=== PATIENT | female | born 1945 | race Hispanic/Latino ===

== ENCOUNTER 2017-11-10 14:08 | Observation (INO) | payer OTHER, MEDICARE ==
[~2017-11-10] VITALS: Ht 162.6 cm; Wt 70.3 kg
[~2017-11-10 14:08] MED LIST: ALBU18HF7; AMLO5TAB2 PO; AMOXILLIN PO; ASPI-891 PO; CLON0.5T4 PO; ESOM40CA PO; ISOS60TA4 PO; LORA10TA7 PO; LOSA100T29 PO; METO25TA6 PO; ROSU20TA PO; TYL3 PO
[2017-11-10] MEDS ORDERED: NITROGLYCERIN 1GM/1 INCH PACKET TD ONE (14:37)
[2017-11-10] MEDS ORDERED: ONDANSETRON HCL MDV 20ML 2 MG/ML VIAL ONE (14:37)
[2017-11-10] MEDS ORDERED: MORPHINE SULFATE 4 MG/1ML SYG ONE (14:38)
[2017-11-10 14:51] LABS: BASOPHILS % (AUTO) 0.8 % (0.0-5.0); EOSINOPHILS % (AUTO) 2.2 % (0.0-8.0); HEMATOCRIT 41.9 % (36-48); LYMPHOCYTES % (AUTO) 28.3 % (21.0-51.0); MEAN CORPUSCULAR HEMOGLOBIN 30.8 pg (27.0-33.0); MEAN CORPUSCULAR HGB CONC 34.7 g/dL (32.0-36.0); MEAN CORPUSCULAR VOLUME 88.8 fL (79-99); MONOCYTES % (AUTO) 4.5 % (3.0-13.0); NEUTROPHILS % (AUTO) 64.2 % (40.0-77.0); PLATELET COUNT (AUTO) 162 K/uL (130-400); RED BLOOD CELL COUNT(AUTO) 4.72 MIL/uL (4.00-5.50); RED CELL DISTRIBUTION WIDTH 13.6 % (11.0-15.5); WHITE BLOOD COUNT (AUTO) 7.4 K/uL (4.8-10.8)
[2017-11-10 15:02] LABS: CREATININE 1.1 mg/dL (0.5-1.5); POTASSIUM 3.7 mmol/L (3.5-5.1)
[2017-11-10 15:05] LABS: PARTIAL THROMBOPLASTIN TIME 27.8 SEC (26.3-35.5); PROTHROMBIN TIME 10.5 SEC (9.6-11.6)
[2017-11-10 15:08] LABS: ALBUMIN 3.5 g/dL (3.5-5.0); BILIRUBIN,TOTAL 0.6 mg/dL (0.2-1.0); TOTAL PROTEIN, SERUM 6.9 g/dL (6.0-8.3)
[2017-11-10 17:49] VITALS: BP 138/66
[2017-11-10] MEDS ORDERED: DEXTROSE 50%-WATER 50 ML DISP.SYRIN IV PRN (18:30)
[2017-11-10] MEDS ORDERED: GLUCAGON 1MG KIT 1 MG ML IM PRN (18:30)
[2017-11-10 19:05] VITALS: BP 162/72
[2017-11-10] MEDS: NITROGLYCERIN 1GM/1 INCH PACKET TD SCH (19:17)
[2017-11-10] MEDS: INSULIN R PO SS1 SQ SCH (20:32)
[2017-11-10 20:43] LABS: CREATINE KINASE MB < 0.5 ng/mL (0.5-3.6); CREATINE KINASE, TOTAL 31 U/L (21-232); MYOGLOBIN 27 ng/mL (10-92); TROPONIN I < 0.04 ng/mL (0.00-0.06)
[2017-11-10] MEDS ORDERED: METO25TA6 PO (20:44)
[2017-11-10] MEDS ORDERED: LOSA50TA37 PO (20:44)
[2017-11-10] MEDS ORDERED: ACETAMINOPHEN-CODEINE 300/30MG TAB PO PRN (21:15)
[2017-11-10] MEDS ORDERED: ALBUTEROL SULFATE 0.083% 2.5 MG/3 ML INH IH PRN (21:15)
[2017-11-10] MEDS ORDERED: CLONAZEPAM 0.5 MG TABLET PO PRN (21:15)
[2017-11-10] MEDS ORDERED: METOPROLOL TARTRATE 25 MG TAB PO ONE (22:00)
[2017-11-10 23:08] VITALS: BP 133/70
[2017-11-11] MEDS ORDERED: ASPIRIN 325 MG TABLET ONE (01:43)
[2017-11-11 01:48] VITALS: BP 161/73
[2017-11-11] MEDS: NITROGLYCERIN 1GM/1 INCH PACKET TD SCH (02:04)
[2017-11-11 03:05] LABS: CREATINE KINASE MB < 0.5 ng/mL (0.5-3.6); CREATINE KINASE, TOTAL 28 U/L (21-232); MYOGLOBIN 31 ng/mL (10-92); TROPONIN I < 0.04 ng/mL (0.00-0.06)
[2017-11-11 03:25] VITALS: BP 154/73
[2017-11-11] MEDS: INSULIN R PO SS1 SQ SCH ×2 (06:35→11:30)
[2017-11-11 07:45] VITALS: BP 137/65
[2017-11-11] MEDS ORDERED: PANTOPRAZOLE SODIUM 40 MG TABLET.DR PO SCH (09:00)
[2017-11-11] MEDS ORDERED: METOPROLOL TARTRATE 25 MG TAB PO SCH (09:00)
[2017-11-11] MEDS ORDERED: AMLODIPINE BESYLATE 5 MG TAB PO SCH (09:00)
[2017-11-11] MEDS ORDERED: ISOSORBIDE MONO 60 MG TAB.SR PO SCH ×2 (09:00→21:00)
[2017-11-11] MEDS ORDERED: LOSARTAN 100 MG TABLET PO SCH (09:00)
[2017-11-11 11:19] VITALS: BP 142/69
[2017-11-11] MEDS ORDERED: Isosorbide Mono 60 Mg Tab.sr PO (13:18)
[2017-11-11] MEDS ORDERED: ASPIRIN 325 MG TABLET PO SCH (18:30)
[2017-11-11] MEDS ORDERED: ATORVASTATIN CALCIUM 40 MG TABLET PO SCH (21:00)
[2017-11-11] MEDS ORDERED: LOSARTAN 50 MG TABLET PO SCH (21:00)
[2017-12-17] MEDS ORDERED: ROSU10TA35 PO (22:12)
[2018-01-16] MEDS ORDERED: DULA1.5P SQ (09:33)
[2018-01-16] MEDS ORDERED: ROSU10TA PO (09:33)
[2018-01-18] MEDS ORDERED: ROSU20TA38 PO (07:22)
== END 2017-11-11 14:25 | disposition home or self-care (01) ==
LOC: EDH 14:08 → EDHIP 16:53 → 2AH 17:27
PROVIDERS: ADMIT Internal Medicine; ATTEND Internal Medicine
DX: I25.119 Atherosclerotic heart disease of native coronary artery with unspecified angina pectoris (principal); I13.0 Hypertensive heart and chronic kidney disease with heart failure and stage 1 through stage 4 chronic kidney disease, or unspecified chronic kidney disease; E11.22 Type 2 diabetes mellitus with diabetic chronic kidney disease; E11.42 Type 2 diabetes mellitus with diabetic polyneuropathy; E11.51 Type 2 diabetes mellitus with diabetic peripheral angiopathy without gangrene; I50.9 Heart failure, unspecified; N18.2 Chronic kidney disease, stage 2 (mild); E78.5 Hyperlipidemia, unspecified; I48.91 Unspecified atrial fibrillation; M48.061 Spinal stenosis, lumbar region without neurogenic claudication; I65.23 Occlusion and stenosis of bilateral carotid arteries; I70.0 Atherosclerosis of aorta; J44.9 Chronic obstructive pulmonary disease, unspecified; M81.0 Age-related osteoporosis without current pathological fracture; R32 Unspecified urinary incontinence; F11.20 Opioid dependence, uncomplicated; F41.1 Generalized anxiety disorder; F32.9 Major depressive disorder, single episode, unspecified; Z95.1 Presence of aortocoronary bypass graft; Z95.5 Presence of coronary angioplasty implant and graft; Z82.3 Family history of stroke; Z83.3 Family history of diabetes mellitus; Z82.5 Family history of asthma and other chronic lower respiratory diseases; Z82.0 Family history of epilepsy and other diseases of the nervous system; Z82.49 Family history of ischemic heart disease and other diseases of the circulatory system; Z79.4 Long term (current) use of insulin
CPT/HCPCS: 36415 ×2; 71045; 80053; 82550 ×2; 82553 ×2; 82948 ×3; 83874 ×2; 83880; 84484 ×3; 85025; 85610; 85730; 93005 ×2; 94664; 99285; G0378 ×22; J2270

== ENCOUNTER 2017-12-17 16:23 | Observation (INO) | payer OTHER, MEDICARE ==
[~2017-12-17] VITALS: Ht 165.1 cm; Wt 66.2 kg
[~2017-12-17 16:23] MED LIST changes: -AMOXILLIN PO; +CLON0.5T12 PO; -CLON0.5T4 PO; -ISOS60TA4 PO; +Isosorbide Mono 60 Mg Tab.sr PO; -LORA10TA7 PO; +LOSA50TA37 PO
[2017-12-17 16:50] LABS: BASOPHILS % (AUTO) 0.6 % (0.0-5.0); HEMATOCRIT 39.1 % (36-48); LYMPHOCYTES % (AUTO) 29.4 % (21.0-51.0); MEAN CORPUSCULAR HEMOGLOBIN 30.9 pg (27.0-33.0); MEAN CORPUSCULAR HGB CONC 34.8 g/dL (32.0-36.0); MEAN CORPUSCULAR VOLUME 88.7 fL (79-99); MONOCYTES % (AUTO) 5.8 % (3.0-13.0); NEUTROPHILS % (AUTO) 60.2 % (40.0-77.0); PLATELET COUNT (AUTO) 165 K/uL (130-400); RED CELL DISTRIBUTION WIDTH 13.6 % (11.0-15.5); WHITE BLOOD COUNT (AUTO) 7.6 K/uL (4.8-10.8)
[2017-12-17] MEDS ORDERED: NITROGLYCERIN 1GM/1 INCH PACKET TD ONE (16:55)
[2017-12-17] MEDS ORDERED: ASPIRIN 325 MG TABLET PO ONE (16:55)
[2017-12-17 17:00] LABS: INR 0.98 (0.85-1.15); PARTIAL THROMBOPLASTIN TIME 27.1 SEC (26.3-35.5); POTASSIUM 3.7 mmol/L (3.5-5.1); PROTHROMBIN TIME 10.3 SEC (9.6-11.6)
[2017-12-17 17:03] LABS: B-TYPE NATRIURETIC PEPTIDE 111 pg/mL (0-100)
[2017-12-17 17:04] LABS: ALBUMIN 3.4 g/dL (3.5-5.0); BILIRUBIN,TOTAL 0.4 mg/dL (0.2-1.0); TOTAL PROTEIN, SERUM 6.6 g/dL (6.0-8.3)
[2017-12-17] MEDS ORDERED: FENTANYL CITRATE PF 50 MCG/1 ML 2ML VIAL ONE (18:03)
[2017-12-17] MEDS ORDERED: ASPIRIN 325 MG TABLET PO SCH (19:11)
[2017-12-17] MEDS ORDERED: CLONAZEPAM 0.5 MG TABLET PO PRN ×2 (19:15→20:30)
[2017-12-17] MEDS ORDERED: ACETAMINOPHEN-CODEINE 300/30MG TAB PO PRN (20:30)
[2017-12-17] MEDS ORDERED: ALBUTEROL SULFATE 0.083% 2.5 MG/3 ML INH IH PRN (20:30)
[2017-12-17] MEDS ORDERED: INSU100V12 SQ (20:35)
[2017-12-17] MEDS ORDERED: POTASSIUM CHLORIDE 10% ELIXIR 20 MEQ/15 ML UDCUP PO PRN ×2 (20:45)
[2017-12-17] MEDS ORDERED: MAG HYDROX/AL HYDROX/SIMETH ES 30 ML SUSP UDCUP PO PRN (20:45)
[2017-12-17] MEDS ORDERED: LACTULOSE 20 GM/30 ML UDCUP PO PRN (20:45)
[2017-12-17] MEDS ORDERED: GLUCAGON 1MG KIT 1 MG ML IM PRN (20:45)
[2017-12-17] MEDS ORDERED: NITROGLYCERIN 0.4 MG SL TAB SL PRN (20:45)
[2017-12-17] MEDS ORDERED: LIDOCAINE HCL-MPF 1% 2ML VIAL IVP PRN ×2 (20:45)
[2017-12-17] MEDS ORDERED: DEXTROSE 50%-WATER 50 ML DISP.SYRIN IV PRN (20:45)
[2017-12-17] MEDS ORDERED: POTASSIUM CHLORIDE 20 MEQ ERTAB PO PRN ×2 (20:45)
[2017-12-17] MEDS ORDERED: POTASSIUM CHLORIDE 20MEQ/100ML 100 ML IV PRN ×2 (20:45)
[2017-12-17] MEDS ORDERED: ACETAMINOPHEN 325 MG TAB PO PRN ×2 (20:45)
[2017-12-17] MEDS ORDERED: MORPHINE SULFATE 4 MG/1ML SYG IV PRN ×2 (20:45)
[2017-12-17] MEDS: INSULIN HUMULIN R 100 UNIT/ML 3ML SQ SCH (21:00)
[2017-12-17] MEDS: ISOSORBIDE MONO 60 MG TAB.SR PO SCH (21:00)
[2017-12-17] MEDS ORDERED: LOSARTAN 50 MG TABLET PO SCH (21:00)
[2017-12-17 21:10] VITALS: BP 142/66
[2017-12-17] MEDS ORDERED: LOSA100T29 PO (22:12)
[2017-12-17] MEDS ORDERED: ROSU10TA27 PO (22:12)
[2017-12-17] MEDS ORDERED: AMLO2.5T PO (22:12)
[2017-12-17] MEDS ORDERED: METO50TA18 PO (22:14)
[2017-12-17] MEDS ORDERED: FLUT1AER IH (22:18)
[2017-12-17] MEDS ORDERED: NITR4.1S2 SL (22:18)
[2017-12-17] MEDS ORDERED: TRULICITY (22:24)
[2017-12-17 23:05] VITALS: BP_SYST 127; BP_SYST 153; BP_DIAS 68; BP_DIAS 72
[2017-12-17 23:05] LABS: CREATINE KINASE MB 0.6 ng/mL (0.5-3.6); CREATINE KINASE, TOTAL 30 U/L (21-232); MYOGLOBIN 25 ng/mL (10-92); TROPONIN I < 0.04 ng/mL (0.00-0.06)
[2017-12-17] MEDS: ATORVASTATIN CALCIUM 40 MG TABLET PO SCH (23:38)
[2017-12-17] MEDS: METOPROLOL TARTRATE 50 MG TAB PO SCH (23:39)
[2017-12-17] MEDS: NITROGLYCERIN 1GM/1 INCH PACKET TD SCH (23:40)
[2017-12-17] MEDS: SODIUM CHLORIDE 0.9% 1000ML 1,000 ML IV SCH (23:42)
[2017-12-18 03:30] VITALS: BP 169/79
[2017-12-18 05:49] LABS: CREATINE KINASE MB 0.6 ng/mL (0.5-3.6); CREATINE KINASE, TOTAL 30 U/L (21-232); MYOGLOBIN 24 ng/mL (10-92); TROPONIN I < 0.04 ng/mL (0.00-0.06)
[2017-12-18] MEDS ORDERED: PHARMACY COMMUNICATION MISC SCH (06:00)
[2017-12-18] MEDS: INSULIN HUMULIN R 100 UNIT/ML 3ML SQ SCH ×4 (07:30→20:56)
[2017-12-18 08:00] VITALS: BP 141/64
[2017-12-18] MEDS ORDERED: PANTOPRAZOLE SODIUM 40 MG TABLET.DR PO SCH (09:00)
[2017-12-18] MEDS: METOPROLOL TARTRATE 50 MG TAB PO SCH ×2 (09:04→20:53)
[2017-12-18] MEDS: AMLODIPINE BESYLATE 5 MG TAB PO SCH (09:04)
[2017-12-18] MEDS: ASPIRIN 325MG EC TAB 325 MG TABLET.DR PO SCH (09:04)
[2017-12-18] MEDS: PANTOPRAZOLE SODIUM 40 MG TABLET.DR PO SCH (09:04)
[2017-12-18] MEDS: ISOSORBIDE MONO 60 MG TAB.SR PO SCH ×2 (09:05→20:52)
[2017-12-18] MEDS: LOSARTAN 100 MG TABLET PO SCH (09:05)
[2017-12-18] MEDS: NITROGLYCERIN 1GM/1 INCH PACKET TD SCH ×4 (09:06→20:56)
[2017-12-18] MEDS: ENOXAPARIN SODIUM 30 MG/0.3 ML SQ SCH (09:07)
[2017-12-18] MEDS ORDERED: REGADENOSON 0.4 MG/5 ML PF SYG IVP SCH (12:30)
[2017-12-18] MEDS: SODIUM CHLORIDE 0.9% 1000ML 1,000 ML IV SCH (13:20)
[2017-12-18 16:14] VITALS: BP 144/68
[2017-12-18 19:05] VITALS: BP 134/67
[2017-12-18] MEDS: ATORVASTATIN CALCIUM 40 MG TABLET PO SCH (20:53)
[2017-12-19 00:05] VITALS: BP 146/64
[2017-12-19 03:05] VITALS: BP 137/60
[2017-12-19] MEDS: SODIUM CHLORIDE 0.9% 1000ML 1,000 ML IV SCH ×3 (06:37→13:02)
[2017-12-19] MEDS: INSULIN HUMULIN R 100 UNIT/ML 3ML SQ SCH ×2 (06:44→11:30)
[2017-12-19 07:30] VITALS: BP 143/74
[2017-12-19] MEDS: AMLODIPINE BESYLATE 5 MG TAB PO SCH (09:24)
[2017-12-19] MEDS: METOPROLOL TARTRATE 50 MG TAB PO SCH (09:24)
[2017-12-19] MEDS: ASPIRIN 325MG EC TAB 325 MG TABLET.DR PO SCH (09:25)
[2017-12-19] MEDS: PANTOPRAZOLE SODIUM 40 MG TABLET.DR PO SCH (09:25)
[2017-12-19] MEDS: NITROGLYCERIN 1GM/1 INCH PACKET TD SCH ×2 (09:26→13:00)
[2017-12-19] MEDS: LOSARTAN 100 MG TABLET PO SCH (09:26)
[2017-12-19] MEDS: ENOXAPARIN SODIUM 30 MG/0.3 ML SQ SCH (09:26)
[2017-12-19] MEDS: ISOSORBIDE MONO 60 MG TAB.SR PO SCH (09:26)
[2017-12-19 11:00] VITALS: BP 136/63
[2017-12-19] MEDS ORDERED: AMLO5TAB2 PO (11:41)
[2018-01-16] MEDS ORDERED: ROSU10TA PO (09:33)
[2018-01-16] MEDS ORDERED: DULA1.5P SQ (09:33)
== END 2017-12-19 15:35 | disposition home or self-care (01) ==
LOC: EDH 16:23 → EDHIP 18:05 → 4BH 21:21
PROVIDERS: ADMIT Internal Medicine; ATTEND Internal Medicine
DX: Z95.1 Presence of aortocoronary bypass graft (principal); I25.119 Atherosclerotic heart disease of native coronary artery with unspecified angina pectoris; E11.42 Type 2 diabetes mellitus with diabetic polyneuropathy; E11.22 Type 2 diabetes mellitus with diabetic chronic kidney disease; Z79.4 Long term (current) use of insulin; I50.9 Heart failure, unspecified; I13.0 Hypertensive heart and chronic kidney disease with heart failure and stage 1 through stage 4 chronic kidney disease, or unspecified chronic kidney disease; N18.2 Chronic kidney disease, stage 2 (mild); E11.51 Type 2 diabetes mellitus with diabetic peripheral angiopathy without gangrene; F32.9 Major depressive disorder, single episode, unspecified; M19.90 Unspecified osteoarthritis, unspecified site; F41.1 Generalized anxiety disorder; M48.061 Spinal stenosis, lumbar region without neurogenic claudication; E78.5 Hyperlipidemia, unspecified; M81.0 Age-related osteoporosis without current pathological fracture; J44.9 Chronic obstructive pulmonary disease, unspecified; I65.23 Occlusion and stenosis of bilateral carotid arteries; I70.0 Atherosclerosis of aorta; R32 Unspecified urinary incontinence; I48.91 Unspecified atrial fibrillation; F11.20 Opioid dependence, uncomplicated; Z95.5 Presence of coronary angioplasty implant and graft; Z82.0 Family history of epilepsy and other diseases of the nervous system; Z82.3 Family history of stroke; Z82.49 Family history of ischemic heart disease and other diseases of the circulatory system; Z82.5 Family history of asthma and other chronic lower respiratory diseases; Z83.3 Family history of diabetes mellitus; Z90.710 Acquired absence of both cervix and uterus; Z79.82 Long term (current) use of aspirin
CPT/HCPCS: 36415 ×2; 71045; 78452; 80053; 82550 ×3; 82553 ×2; 82948 ×7; 83874 ×2; 83880; 84484 ×3; 85025; 85610; 85730; 93005; 93017; 94664; 96372 ×2; 96374; 99291; A9500 ×2; G0378 ×45; J1650 ×2; J2785; J3010; J7030

== ENCOUNTER 2018-01-18 05:45 | Day surgery (SDC) | payer OTHER, MEDICARE ==
[2018-01-16 08:45] VITALS: BP 124/60
[2018-01-16 09:13] LABS: BASOPHILS % (AUTO) 1.2 % (0.0-5.0); EOSINOPHILS % (AUTO) 3.2 % (0.0-8.0); HEMATOCRIT 40.7 % (36-48); LYMPHOCYTES % (AUTO) 25.1 % (21.0-51.0); MEAN CORPUSCULAR HEMOGLOBIN 30.4 pg (27.0-33.0); MEAN CORPUSCULAR HGB CONC 34.5 g/dL (32.0-36.0); MEAN CORPUSCULAR VOLUME 88.2 fL (79-99); MONOCYTES % (AUTO) 5.2 % (3.0-13.0); NEUTROPHILS % (AUTO) 65.3 % (40.0-77.0); PLATELET COUNT (AUTO) 167 K/uL (130-400); RED BLOOD CELL COUNT(AUTO) 4.62 MIL/uL (4.00-5.50); RED CELL DISTRIBUTION WIDTH 13.4 % (11.0-15.5); WHITE BLOOD COUNT (AUTO) 7.2 K/uL (4.8-10.8)
[2018-01-16 09:21] LABS: CREATININE 0.9 mg/dL (0.5-1.5); POTASSIUM 4.4 mmol/L (3.5-5.1)
[2018-01-16 09:22] LABS: APPEARANCE,URINE Clear (CLEAR); BILIRUBIN,URINE Negative (NEGATIVE); COLOR,URINE Yellow (YELLOW); GLUCOSE, URINE (UA) Negative (NEGATIVE); KETONES,URINE Negative (NEGATIVE); LEUKOCYTE ESTERASE ,URINE Small (NEGATIVE); NITRATE,URINE Negative (NEGATIVE); OCCULT BLOOD,URINE Negative (NEGATIVE); PH,URINE 6.5 (5.0-8.0); PROTEIN,URINE Negative (NEGATIVE)
[2018-01-16 09:26] LABS: INR 1.04 (0.85-1.15); PARTIAL THROMBOPLASTIN TIME 28.5 SEC (26.3-35.5); PROTHROMBIN TIME 10.9 SEC (9.6-11.6)
[2018-01-16 09:28] LABS: BACTERIA,URINE Rare /HPF (None Seen); RBC,URINE 0-1 /HPF (0-1); SQUAMOUS EPITHELIAL CELL,UR Rare /HPF (0-2); WBC,URINE 0-1 /HPF (0-1)
[~2018-01-18] VITALS: Ht 162.6 cm; Wt 70.6 kg
[2018-01-18] VITALS (10 sets, daily range): BP systolic 122–162; BP diastolic 54–82
[~2018-01-18 05:45] MED LIST changes: -ALBU18HF7; -AMLO5TAB2 PO; -ASPI-891 PO; +DULA1.5P SQ; +INSU100V12 SQ; -METO25TA6 PO; +METO50TA18 PO; +NITR4.1S2 SL; +PHARMACY COMMUNICATION MISC SCH; +ROSU10TA PO; -ROSU20TA PO; +SODIUM CHLORIDE 0.9% 500ML 500 ML IV SCH
[2018-01-18] MEDS ORDERED: IOPAMIDOL-370 100 ML VIAL IV ONE ×2 (07:09→08:34)
[2018-01-18] MEDS ORDERED: NITROGLYCERIN 5 MG/ML 10 ML VIAL IV ONE (07:09)
[2018-01-18] MEDS ORDERED: ISOVUE-370 50ML VIAL IV ONE (07:09)
[2018-01-18] MEDS ORDERED: LIDOCAINE HCL 2% 20ML ONE (07:10)
[2018-01-18] MEDS ORDERED: SODIUM CHLORIDE 0.9% 1000ML 1,000 ML IV ONE (07:17)
[2018-01-18] MEDS ORDERED: ROSU20TA30 PO (07:22)
[2018-01-18] MEDS ORDERED: DEXL60CA3 PO (07:24)
[2018-01-18] MEDS ORDERED: AMLO5TAB2 PO (07:24)
[2018-01-18] MEDS ORDERED: ASPI-891 PO (07:24)
[2018-01-18] MEDS ORDERED: MIDAZOLAM HCL 1 MG/ML 2ML VIAL ONE (07:44)
[2018-01-18] MEDS ORDERED: LABETALOL HCL 5 MG/ML 20ML VIAL IV ONE (08:24)
[2018-01-18] MEDS ORDERED: SODIUM CHLORIDE 0.9% 1000ML 1,000 ML IV SCH (08:57)
[2018-01-18] MEDS ORDERED: GLUCAGON 1MG KIT 1 MG ML IM PRN (09:00)
[2018-01-18] MEDS ORDERED: DEXTROSE 50%-WATER 50 ML DISP.SYRIN IV PRN (09:00)
[2018-01-18] MEDS ORDERED: ESOM40CA PO (09:07)
[2018-01-18] MEDS ORDERED: INSULIN HUMULIN R 100 UNIT/ML 3ML SQ SCH (11:30)
== END 2018-01-18 13:10 | disposition home or self-care (01) ==
LOC: DAH 05:45
PROVIDERS: ATTEND Internal Medicine Cardiovascular Disease
DX: I25.810 Atherosclerosis of coronary artery bypass graft(s) without angina pectoris (principal); R07.9 Chest pain, unspecified; I48.91 Unspecified atrial fibrillation; Z98.890 Other specified postprocedural states; E11.9 Type 2 diabetes mellitus without complications; E78.5 Hyperlipidemia, unspecified; I10 Essential (primary) hypertension; Z90.710 Acquired absence of both cervix and uterus; Z83.3 Family history of diabetes mellitus; Z82.49 Family history of ischemic heart disease and other diseases of the circulatory system; Z79.899 Other long term (current) drug therapy; I65.23 Occlusion and stenosis of bilateral carotid arteries; Z79.4 Long term (current) use of insulin; Z79.84 Long term (current) use of oral hypoglycemic drugs
CPT/HCPCS: 36415; 71045; 80048; 81001; 82948 ×3; 85025; 85610; 85730; 93459; A4606; C1760; C1894; J1644; J2250; J3490 ×3; J7030; Q9967 ×2; 99156; 99157

== ENCOUNTER → 2018-04-22 | Outpatient (CLI) | payer OTHER, MEDICARE ==
[~2018-04-22] MED LIST changes: +AMLO5TAB7 PO; +ASPI-891 PO; +LOSA100T20 PO; -LOSA100T29 PO; +LOSA50TA25 PO; -LOSA50TA37 PO; -PHARMACY COMMUNICATION MISC SCH; -ROSU10TA PO; +ROSU20TA30 PO; -SODIUM CHLORIDE 0.9% 500ML 500 ML IV SCH
== END | disposition home or self-care (01) ==
LOC: RAH 11:04
PROVIDERS: ATTEND Internal Medicine
DX: M25.812 Other specified joint disorders, left shoulder (principal); I13.0 Hypertensive heart and chronic kidney disease with heart failure and stage 1 through stage 4 chronic kidney disease, or unspecified chronic kidney disease; E11.22 Type 2 diabetes mellitus with diabetic chronic kidney disease; N18.2 Chronic kidney disease, stage 2 (mild); I50.9 Heart failure, unspecified; E11.42 Type 2 diabetes mellitus with diabetic polyneuropathy; E78.5 Hyperlipidemia, unspecified; M19.049 Primary osteoarthritis, unspecified hand; M19.019 Primary osteoarthritis, unspecified shoulder; J44.9 Chronic obstructive pulmonary disease, unspecified; I25.10 Atherosclerotic heart disease of native coronary artery without angina pectoris; K21.9 Gastro-esophageal reflux disease without esophagitis; Z90.49 Acquired absence of other specified parts of digestive tract; Z90.710 Acquired absence of both cervix and uterus
CPT/HCPCS: 76882

== ENCOUNTER 2018-04-26 21:33 | Emergency (ER) | payer OTHER, MEDICARE ==
[2018-04-26 21:48] LABS: BASOPHILS % (AUTO) 0.8 % (0.0-5.0); EOSINOPHILS % (AUTO) 2.5 % (0.0-8.0); HEMATOCRIT 42.7 % (36-48); LYMPHOCYTES % (AUTO) 26.7 % (21.0-51.0); MEAN CORPUSCULAR HEMOGLOBIN 29.9 pg (27.0-33.0); MEAN CORPUSCULAR HGB CONC 33.6 g/dL (32.0-36.0); MEAN CORPUSCULAR VOLUME 88.9 fL (79-99); MONOCYTES % (AUTO) 4.6 % (3.0-13.0); NEUTROPHILS % (AUTO) 65.4 % (40.0-77.0); PLATELET COUNT (AUTO) 145 K/uL (130-400); RED BLOOD CELL COUNT(AUTO) 4.81 MIL/uL (4.00-5.50); RED CELL DISTRIBUTION WIDTH 13.9 % (11.0-15.5); WHITE BLOOD COUNT (AUTO) 9.6 K/uL (4.8-10.8)
[2018-04-26] MEDS ORDERED: ASPIRIN 81MG TAB.CHEW ONE (21:52)
[2018-04-26 22:00] LABS: POTASSIUM 4.3 mmol/L (3.5-5.1)
[2018-04-26] MEDS ORDERED: NITROGLYCERIN 0.4 MG SL TAB SL ONE ×3 (22:00→22:10)
[2018-04-26 22:02] LABS: PARTIAL THROMBOPLASTIN TIME 29.7 SEC (26.3-35.5); PROTHROMBIN TIME 10.5 SEC (9.6-11.6)
[2018-04-26 22:15] LABS: ALBUMIN 3.5 g/dL (3.5-5.0); BILIRUBIN,TOTAL 0.4 mg/dL (0.2-1.0); CREATINE KINASE MB 0.6 ng/mL (0.5-3.6); TOTAL PROTEIN, SERUM 6.8 g/dL (6.0-8.3)
[2018-04-26] MEDS ORDERED: ONDANSETRON HCL 4 MG/2 ML VIAL ONE (22:18)
[2018-04-26] MEDS ORDERED: PANTOPRAZOLE 40 MG/VIAL IVP ONE (22:35)
[2018-04-27 01:01] LABS: CREATINE KINASE MB 0.6 ng/mL (0.5-3.6); CREATINE KINASE, TOTAL 34 U/L (21-232); MYOGLOBIN 23 ng/mL (10-92); TROPONIN I < 0.04 ng/mL (0.00-0.06)
== END 2018-04-27 01:55 | disposition home or self-care (01) ==
LOC: EDH 21:33
DX: R07.89 Other chest pain (principal); R10.9 Unspecified abdominal pain; R06.02 Shortness of breath; R11.0 Nausea; E78.5 Hyperlipidemia, unspecified; I10 Essential (primary) hypertension; E11.9 Type 2 diabetes mellitus without complications; I25.810 Atherosclerosis of coronary artery bypass graft(s) without angina pectoris; Z98.890 Other specified postprocedural states; Z90.49 Acquired absence of other specified parts of digestive tract; Z95.1 Presence of aortocoronary bypass graft
CPT/HCPCS: 36415; 71045; 80053; 82550 ×2; 82553 ×2; 83690; 83874 ×2; 84484 ×3; 85025; 85610; 85730; 93005 ×2; 94761; 96374; 96375; 99285; C9113; J2405

== ENCOUNTER 2018-05-24 17:21 | Observation (INO) | payer OTHER, MEDICARE ==
[~2018-05-24] VITALS: Ht 162.6 cm; Wt 73.0 kg
[2018-05-24 17:48] LABS: BASOPHILS % (AUTO) 0.6 % (0.0-5.0); EOSINOPHILS % (AUTO) 1.9 % (0.0-8.0); HEMATOCRIT 39.1 % (36-48); LYMPHOCYTES % (AUTO) 15.9 % (21.0-51.0); MEAN CORPUSCULAR HEMOGLOBIN 30.4 pg (27.0-33.0); MEAN CORPUSCULAR HGB CONC 34.4 g/dL (32.0-36.0); MEAN CORPUSCULAR VOLUME 88.5 fL (79-99); MONOCYTES % (AUTO) 5.1 % (3.0-13.0); NEUTROPHILS % (AUTO) 76.5 % (40.0-77.0); PLATELET COUNT (AUTO) 137 K/uL (130-400); RED BLOOD CELL COUNT(AUTO) 4.42 MIL/uL (4.00-5.50); RED CELL DISTRIBUTION WIDTH 13.7 % (11.0-15.5); WHITE BLOOD COUNT (AUTO) 9.9 K/uL (4.8-10.8)
[2018-05-24 18:02] LABS: CREATININE 0.9 mg/dL (0.5-1.5); POTASSIUM 3.5 mmol/L (3.5-5.1)
[2018-05-24 18:03] LABS: PARTIAL THROMBOPLASTIN TIME 28.9 SEC (26.3-35.5); PROTHROMBIN TIME 10.5 SEC (9.6-11.6)
[2018-05-24 18:07] LABS: ALBUMIN 3.3 g/dL (3.5-5.0); BILIRUBIN,TOTAL 0.5 mg/dL (0.2-1.0); TOTAL PROTEIN, SERUM 6.3 g/dL (6.0-8.3)
[2018-05-24] MEDS ORDERED: MORPHINE SULFATE 4 MG/1ML SYG ONE (18:36)
[2018-05-24] MEDS ORDERED: ONDANSETRON HCL 4 MG/2 ML VIAL ONE (18:36)
[2018-05-24] MEDS ORDERED: ASPIRIN 325 MG TABLET ONE (19:22)
[2018-05-24] MEDS ORDERED: LIDOCAINE HCL 2% VISCOUS 15 ML UDCUP ONE (19:22)
[2018-05-24] MEDS ORDERED: MAG HYDROX/AL HYDROX/SIMETH ES 30 ML SUSP UDCUP ONE (19:22)
[2018-05-24 21:26] LABS: APPEARANCE,URINE Clear (CLEAR); BILIRUBIN,URINE Negative (NEGATIVE); COLOR,URINE Yellow (YELLOW); GLUCOSE, URINE (UA) Negative (NEGATIVE); KETONES,URINE Negative (NEGATIVE); LEUKOCYTE ESTERASE ,URINE Small (NEGATIVE); NITRATE,URINE Negative (NEGATIVE); OCCULT BLOOD,URINE Negative (NEGATIVE); PH,URINE 6.5 (5.0-8.0); PROTEIN,URINE Negative (NEGATIVE)
[2018-05-24 21:36] LABS: BACTERIA,URINE Rare /HPF (None Seen); RBC,URINE 0-1 /HPF (0-1)
[2018-05-24] MEDS ORDERED: SODIUM CHLORIDE 0.9% 1000ML 1,000 ML IV SCH (22:57)
[2018-05-24] MEDS ORDERED: DiphenhydrAMINE HCL 50 MG/ML VIAL IV PRN (23:00)
[2018-05-24] MEDS ORDERED: ACETAMINOPHEN 325 MG TAB PO PRN ×2 (23:00)
[2018-05-24] MEDS ORDERED: GLUCAGON 1MG KIT 1 MG ML IM PRN (23:00)
[2018-05-24] MEDS ORDERED: ALBUTEROL SULFATE 0.083% 2.5 MG/3 ML INH IH PRN (23:00)
[2018-05-24] MEDS ORDERED: MAG HYDROX/AL HYDROX/SIMETH ES 30 ML SUSP UDCUP PO PRN (23:00)
[2018-05-24] MEDS ORDERED: DEXTROSE 50%-WATER 50 ML DISP.SYRIN IV PRN (23:00)
[2018-05-24] MEDS ORDERED: POTASSIUM CHLORIDE 10% ELIXIR 20 MEQ/15 ML UDCUP PO PRN (23:00)
[2018-05-24] MEDS ORDERED: LACTULOSE 20 GM/30 ML UDCUP PO PRN (23:00)
[2018-05-24] MEDS ORDERED: POTASSIUM CHLORIDE 20MEQ/100ML 100 ML IV PRN (23:00)
[2018-05-24] MEDS ORDERED: ONDANSETRON HCL 4 MG/2 ML VIAL IV PRN (23:00)
[2018-05-24] MEDS ORDERED: NITROGLYCERIN 0.4 MG SL TAB SL SCH (23:00)
[2018-05-24] MEDS ORDERED: LIDOCAINE HCL-MPF 1% 2ML VIAL IVP PRN (23:00)
[2018-05-24] MEDS ORDERED: DIPHENHYDRAMINE HCL 25 MG CAPSULE PO PRN (23:00)
[2018-05-24] MEDS ORDERED: POTASSIUM CHLORIDE 20 MEQ ERTAB PO PRN (23:00)
[2018-05-24 23:18] VITALS: BP 138/55
[2018-05-25] MEDS: NITROGLYCERIN 1GM/1 INCH PACKET TD SCH ×3 (01:24→10:05)
[2018-05-25 01:26] LABS: CREATINE KINASE, TOTAL 26 U/L (21-232); MYOGLOBIN 28 ng/mL (10-92); TROPONIN I < 0.04 ng/mL (0.00-0.06)
[2018-05-25 04:00] VITALS: BP 125/57
[2018-05-25 05:32] LABS: CREATINE KINASE, TOTAL 28 U/L (21-232); MYOGLOBIN 28 ng/mL (10-92); TROPONIN I < 0.04 ng/mL (0.00-0.06)
[2018-05-25] MEDS ORDERED: INSULIN GLARGINE 100 UNITS/ML 10 ML VIAL SQ SCH (08:00)
[2018-05-25 08:14] VITALS: BP 141/65
[2018-05-25] MEDS ORDERED: PANTOPRAZOLE SODIUM 40 MG TABLET.DR PO SCH (09:00)
[2018-05-25] MEDS ORDERED: ENOXAPARIN SODIUM 30 MG/0.3 ML SQ SCH (09:00)
[2018-05-25] MEDS ORDERED: ISOSORBIDE MONO 60 MG TAB.SR PO SCH (09:00)
[2018-05-25] MEDS ORDERED: METOPROLOL TARTRATE 50 MG TAB PO SCH (09:00)
[2018-05-25] MEDS ORDERED: AMLODIPINE BESYLATE 5 MG TAB PO SCH (09:00)
[2018-05-25] MEDS ORDERED: ASPIRIN 325MG EC TAB 325 MG TABLET.DR PO SCH (09:00)
[2018-05-25] MEDS ORDERED: LOSARTAN 100 MG TABLET PO SCH (09:00)
[2018-05-25] MEDS ORDERED: GICOCKTAIL PO (10:21)
[2018-05-25 11:53] VITALS: BP 122/58
[2018-05-25] MEDS ORDERED: CLONAZEPAM 0.5 MG TABLET PO SCH (21:00)
[2018-05-25] MEDS ORDERED: LOSARTAN 50 MG TABLET PO SCH (21:00)
[2018-05-25] MEDS ORDERED: ATORVASTATIN CALCIUM 40 MG TABLET PO SCH (21:00)
[2018-05-31] MEDS ORDERED: DULAGLUTIDE 1.5 MG SQ SCH (09:00)
== END 2018-05-25 11:25 | disposition home or self-care (01) ==
LOC: EDH 17:21 → EDHIP 19:11 → 3AH 22:36
PROVIDERS: ADMIT Internal Medicine; ATTEND Internal Medicine
DX: R07.89 Other chest pain (principal); E11.22 Type 2 diabetes mellitus with diabetic chronic kidney disease; E11.36 Type 2 diabetes mellitus with diabetic cataract; E11.49 Type 2 diabetes mellitus with other diabetic neurological complication; E11.51 Type 2 diabetes mellitus with diabetic peripheral angiopathy without gangrene; I13.0 Hypertensive heart and chronic kidney disease with heart failure and stage 1 through stage 4 chronic kidney disease, or unspecified chronic kidney disease; I50.9 Heart failure, unspecified; I25.118 Atherosclerotic heart disease of native coronary artery with other forms of angina pectoris; E55.9 Vitamin D deficiency, unspecified; N18.2 Chronic kidney disease, stage 2 (mild); M81.0 Age-related osteoporosis without current pathological fracture; E66.9 Obesity, unspecified; E78.1 Pure hyperglyceridemia; E11.65 Type 2 diabetes mellitus with hyperglycemia; G43.109 Migraine with aura, not intractable, without status migrainosus; J44.9 Chronic obstructive pulmonary disease, unspecified; K21.9 Gastro-esophageal reflux disease without esophagitis; M48.061 Spinal stenosis, lumbar region without neurogenic claudication; M51.9 Unspecified thoracic, thoracolumbar and lumbosacral intervertebral disc disorder; G89.29 Other chronic pain; I48.91 Unspecified atrial fibrillation; I70.0 Atherosclerosis of aorta; F41.1 Generalized anxiety disorder; F32.9 Major depressive disorder, single episode, unspecified; I65.22 Occlusion and stenosis of left carotid artery; Z82.49 Family history of ischemic heart disease and other diseases of the circulatory system; Z82.0 Family history of epilepsy and other diseases of the nervous system; Z83.3 Family history of diabetes mellitus; Z87.891 Personal history of nicotine dependence; Z90.49 Acquired absence of other specified parts of digestive tract; Z95.1 Presence of aortocoronary bypass graft; Z95.5 Presence of coronary angioplasty implant and graft; Z79.4 Long term (current) use of insulin; Z82.5 Family history of asthma and other chronic lower respiratory diseases; Z82.3 Family history of stroke; Z23 Encounter for immunization
CPT/HCPCS: 36415 ×2; 71045; 80053; 81001; 82550 ×3; 82948 ×2; 83690; 83874 ×2; 84484 ×3; 85025; 85610; 85730; 93005; 94664; 96360; 96361; 96372; 99285; G0008; G0378 ×16; J1650; J2270; J2405; J7030; Q2038

== ENCOUNTER 2018-08-19 13:57 | Emergency (ER) | payer OTHER, MEDICARE ==
[~2018-08-19 13:57] MED LIST changes: -AMLO5TAB7 PO; +AMLO5TAB9 PO; +GICOCKTAIL PO; -LOSA100T20 PO; +LOSA100T58 PO; -LOSA50TA25 PO; +LOSA50TA64 PO
[2018-08-19 15:19] LABS: BASOPHILS % (AUTO) 0.7 % (0.0-5.0); EOSINOPHILS % (AUTO) 2.7 % (0.0-8.0); HEMATOCRIT 40.7 % (36-48); LYMPHOCYTES % (AUTO) 24.5 % (21.0-51.0); MEAN CORPUSCULAR HGB CONC 33.5 g/dL (32.0-36.0); MEAN CORPUSCULAR VOLUME 89.6 fL (79-99); MONOCYTES % (AUTO) 5.1 % (3.0-13.0); NUCLEATED RED BLOOD CELLS 0.1 % (0.0-0.19); PLATELET COUNT (AUTO) 128 K/uL (130-400); RED BLOOD CELL COUNT(AUTO) 4.55 MIL/uL (4.00-5.50); RED CELL DISTRIBUTION WIDTH 13.6 % (11.0-15.5)
[2018-08-19 15:27] LABS: CREATININE 1.1 mg/dL (0.5-1.5); POTASSIUM 3.8 mmol/L (3.5-5.1)
[2018-08-19 15:31] LABS: ALBUMIN 3.2 g/dL (3.5-5.0); BILIRUBIN,TOTAL 0.4 mg/dL (0.2-1.0); TOTAL PROTEIN, SERUM 6.3 g/dL (6.0-8.3)
== END 2018-08-19 16:30 | disposition home or self-care (01) ==
LOC: EDH 13:57
DX: R07.89 Other chest pain (principal); R42 Dizziness and giddiness; R00.2 Palpitations; E11.9 Type 2 diabetes mellitus without complications; I25.10 Atherosclerotic heart disease of native coronary artery without angina pectoris; E78.5 Hyperlipidemia, unspecified; I10 Essential (primary) hypertension; Z90.49 Acquired absence of other specified parts of digestive tract
CPT/HCPCS: 36415; 71045; 80053; 84484; 85025; 93005

== ENCOUNTER → 2018-09-04 | Outpatient (CLI) | payer OTHER, MEDICARE | END | disposition home or self-care (01) | LOC: RAH 15:36 | PROVIDERS: ATTEND Internal Medicine | DX: M47.24 Other spondylosis with radiculopathy, thoracic region (principal) | CPT/HCPCS: 72072 ==

== ENCOUNTER 2018-10-03 13:23 | Emergency (ER) | payer OTHER, MEDICARE ==
[2018-10-03] MEDS ORDERED: SODIUM CHLORIDE 0.9% 1000ML 1,000 ML IV ONE (14:45)
[2018-10-03] MEDS ORDERED: ONDANSETRON HCL 4 MG/2 ML VIAL ONE (14:45)
[2018-10-03 14:47] LABS: BASOPHILS % (AUTO) 0.5 % (0.0-5.0); EOSINOPHILS % (AUTO) 0.2 % (0.0-8.0); MEAN CORPUSCULAR HEMOGLOBIN 30.3 pg (27.0-33.0); MEAN CORPUSCULAR HGB CONC 33.7 g/dL (32.0-36.0); MEAN CORPUSCULAR VOLUME 89.7 fL (79-99); NEUTROPHILS % (AUTO) 81.3 % (40.0-77.0); PLATELET COUNT (AUTO) 119 K/uL (130-400); RED BLOOD CELL COUNT(AUTO) 4.46 MIL/uL (4.00-5.50); RED CELL DISTRIBUTION WIDTH 13.3 % (11.0-15.5); WHITE BLOOD COUNT (AUTO) 6.2 K/uL (4.8-10.8)
[2018-10-03 14:57] LABS: INR 1.06 (0.85-1.15); PARTIAL THROMBOPLASTIN TIME 33.1 SEC (26.3-35.5); PROTHROMBIN TIME 11.1 SEC (9.6-11.6)
[2018-10-03 15:10] LABS: ALBUMIN 3.1 g/dL (3.5-5.0); CARBON DIOXIDE 21 mmol/L (21-32); CHLORIDE 99 mmol/L (101-111); CREATININE 0.8 mg/dL (0.5-1.5); GLOMERULAR FILTR. RATE CALC 75 mL/min (>60); GLUCOSE,RANDOM 149 mg/dL (70-105); POTASSIUM 4.3 mmol/L (3.5-5.1); SODIUM SERUM 134 mmol/L (136-145); UREA NITROGEN, BLOOD 14 mg/dL (7-18)
[2018-10-03] MEDS ORDERED: IPRATROPIUM/ALBUTEROL SULFATE 3 ML SOLUTION IH ONE (15:10)
[2018-10-03 15:35] LABS: ALANINE AMINOTRANSFERASE 31 U/L (12-78); ASPARTATE AMINOTRANSFERASE 42 U/L (10-37); BILIRUBIN,TOTAL 0.8 mg/dL (0.2-1.0); CREATINE KINASE, TOTAL 97 U/L (21-232); MYOGLOBIN 55 ng/mL (10-92); TOTAL PROTEIN, SERUM 6.5 g/dL (6.0-8.3); TROPONIN I < 0.04 ng/mL (0.00-0.06)
[2018-10-03 15:44] LABS: BILIRUBIN,URINE Negative (NEGATIVE); COLOR,URINE Yellow (YELLOW); GLUCOSE, URINE (UA) Negative (NEGATIVE); KETONES,URINE 40 mg/dL (NEGATIVE); LEUKOCYTE ESTERASE ,URINE Negative (NEGATIVE); NITRATE,URINE Negative (NEGATIVE); OCCULT BLOOD,URINE Negative (NEGATIVE); PROTEIN,URINE Negative (NEGATIVE)
[2018-10-03 15:48] LABS: APPEARANCE,URINE CLEAR (CLEAR)
[2018-10-03 15:56] LABS: B-TYPE NATRIURETIC PEPTIDE 150 pg/mL (0-100)
== END 2018-10-03 16:31 | disposition home or self-care (01) ==
LOC: EDH 13:23
DX: J10.1 Influenza due to other identified influenza virus with other respiratory manifestations (principal); E86.0 Dehydration; I10 Essential (primary) hypertension; E78.5 Hyperlipidemia, unspecified; E11.9 Type 2 diabetes mellitus without complications; I25.10 Atherosclerotic heart disease of native coronary artery without angina pectoris; I95.1 Orthostatic hypotension; Z87.891 Personal history of nicotine dependence
CPT/HCPCS: 36415; 71045; 80053; 81003; 82550; 83605; 83874; 83880; 84484; 85025; 85610; 85730; 87040; 87088; 87804 ×2; 93005; 94640; 96361; 96374; 96375; 99284; J2405; J7030

== ENCOUNTER 2019-01-24 23:35 | Emergency (ER) | payer OTHER, MEDICARE ==
[2019-01-25 00:01] LABS: EOSINOPHILS % (AUTO) 2.8 % (0.0-8.0); HEMATOCRIT 41.1 % (36-48); LYMPHOCYTES % (AUTO) 27.1 % (21.0-51.0); MEAN CORPUSCULAR HEMOGLOBIN 30.3 pg (27.0-33.0); MEAN CORPUSCULAR HGB CONC 33.9 g/dL (32.0-36.0); MEAN CORPUSCULAR VOLUME 89.3 fL (79-99); MONOCYTES % (AUTO) 5.4 % (3.0-13.0); NEUTROPHILS % (AUTO) 63.7 % (40.0-77.0); PLATELET COUNT (AUTO) 139 K/uL (130-400); RED CELL DISTRIBUTION WIDTH 13.3 % (11.0-15.5); WHITE BLOOD COUNT (AUTO) 8.6 K/uL (4.8-10.8)
[2019-01-25 00:13] LABS: CREATININE 0.8 mg/dL (0.5-1.5); POTASSIUM 4.8 mmol/L (3.5-5.1)
[2019-01-25 00:24] LABS: ALBUMIN 3.5 g/dL (3.5-5.0); BILIRUBIN,TOTAL 0.5 mg/dL (0.2-1.0); TOTAL PROTEIN, SERUM 6.5 g/dL (6.0-8.3)
[2019-01-25 00:26] LABS: PROTHROMBIN TIME 10.5 SEC (9.6-11.6)
[2019-01-25 01:31] LABS: APPEARANCE,URINE Clear (CLEAR); BILIRUBIN,URINE Negative (NEGATIVE); COLOR,URINE Yellow (YELLOW); GLUCOSE, URINE (UA) Negative (NEGATIVE); KETONES,URINE Negative (NEGATIVE); LEUKOCYTE ESTERASE ,URINE Trace (NEGATIVE); NITRATE,URINE Negative (NEGATIVE); OCCULT BLOOD,URINE Negative (NEGATIVE); PH,URINE 6.5 (5.0-8.0); PROTEIN,URINE Negative (NEGATIVE); UROBILINOGEN,URINE 0.2 mg/dL (0.2-1.0)
[2019-01-25 01:45] LABS: BACTERIA,URINE None Seen /HPF (None Seen); RBC,URINE None Seen /HPF (0-1); WBC,URINE None Seen /HPF (0-1)
[2019-01-25 01:46] LABS: SQUAMOUS EPITHELIAL CELL,UR Rare /HPF (0-2)
[2019-01-25] MEDS ORDERED: NITROGLYCERIN 1GM/1 INCH PACKET TD ONE (01:53)
[2019-01-25] MEDS ORDERED: MAG HYDROX/AL HYDROX/SIMETH ES 30 ML SUSP UDCUP ONE (01:59)
[2019-01-25] MEDS ORDERED: LIDOCAINE HCL 2% VISCOUS 15 ML UDCUP ONE (01:59)
[2019-01-25] MEDS ORDERED: ASPIRIN 81 MG EC TAB ONE (02:00)
== END 2019-01-25 04:07 | disposition home or self-care (01) ==
LOC: EDH 23:35
DX: R07.2 Precordial pain (principal); I10 Essential (primary) hypertension; I25.810 Atherosclerosis of coronary artery bypass graft(s) without angina pectoris; E11.9 Type 2 diabetes mellitus without complications; E78.5 Hyperlipidemia, unspecified; Z87.891 Personal history of nicotine dependence
CPT/HCPCS: 36415; 71045; 80053; 81001; 82550; 83874; 84484; 85025; 85378; 85610; 85730; 93005

== ENCOUNTER 2019-05-17 10:49 | Observation (INO) | payer OTHER, MEDICARE ==
[~2019-05-17] VITALS: Ht 162.6 cm; Wt 69.4 kg
[~2019-05-17 10:49] MED LIST changes: -ROSU20TA30 PO; +ROSU20TA31 PO
[2019-05-17 11:13] LABS: BASOPHILS % (AUTO) 0.9 % (0.0-5.0); EOSINOPHILS % (AUTO) 3.4 % (0.0-8.0); HEMATOCRIT 44.5 % (36-48); LYMPHOCYTES % (AUTO) 27.7 % (21.0-51.0); MEAN CORPUSCULAR HGB CONC 34.2 g/dL (32.0-36.0); MEAN CORPUSCULAR VOLUME 90.7 fL (79-99); MONOCYTES % (AUTO) 4.4 % (3.0-13.0); NEUTROPHILS % (AUTO) 63.6 % (40.0-77.0); NUCLEATED RED BLOOD CELLS 0.1 % (0.0-0.19); PLATELET COUNT (AUTO) 135 K/uL (130-400); RED CELL DISTRIBUTION WIDTH 13.6 % (11.0-15.5); WHITE BLOOD COUNT (AUTO) 8.1 K/uL (4.8-10.8)
[2019-05-17 11:14] LABS: POTASSIUM 5.3 mmol/L (3.5-5.1)
[2019-05-17] MEDS ORDERED: NITROGLYCERIN 0.4 MG SL TAB SL ONE (11:17)
[2019-05-17] MEDS ORDERED: SODIUM CHLORIDE 0.9% 500ML 500 ML IV ONE (11:18)
[2019-05-17 11:19] LABS: ALBUMIN 3.4 g/dL (3.5-5.0); BILIRUBIN,TOTAL 0.6 mg/dL (0.2-1.0); TOTAL PROTEIN, SERUM 6.8 g/dL (6.0-8.3)
[2019-05-17] MEDS ORDERED: ASPIRIN 81MG TAB.CHEW ONE (11:27)
[2019-05-17 11:28] LABS: INR 0.95 (0.85-1.15); PARTIAL THROMBOPLASTIN TIME 24.4 SEC (26.3-35.5)
[2019-05-17] MEDS ORDERED: NITROGLYCERIN 1GM/1 INCH PACKET TD ONE (12:53)
[2019-05-17] MEDS ORDERED: POTASSIUM CHLORIDE 20 MEQ ERTAB PO PRN (15:30)
[2019-05-17] MEDS ORDERED: DiphenhydrAMINE HCL 50 MG/ML VIAL IV PRN (15:30)
[2019-05-17] MEDS ORDERED: DEXTROSE 50%-WATER 50 ML DISP.SYRIN IV PRN (15:30)
[2019-05-17] MEDS ORDERED: GLUCAGON 1MG KIT 1 MG ML IM PRN (15:30)
[2019-05-17] MEDS ORDERED: ONDANSETRON HCL 4 MG/2 ML VIAL IV PRN (15:30)
[2019-05-17] MEDS ORDERED: POTASSIUM CHLORIDE 20MEQ/100ML 100 ML IV PRN (15:30)
[2019-05-17] MEDS ORDERED: LIDOCAINE HCL 2% VISCOUS 30 ML, MAG HYDROX/AL HYDROX/SIMETH 30 ML, BELLADONNA-PHENOBARB... PO PRN ×3 (15:30)
[2019-05-17] MEDS ORDERED: ACETAMINOPHEN 325 MG TAB PO PRN ×2 (15:30)
[2019-05-17] MEDS ORDERED: ZOLPIDEM TARTRATE 5 MG TAB PO PRN (15:30)
[2019-05-17] MEDS ORDERED: MAG HYDROX/AL HYDROX/SIMETH ES 30 ML SUSP UDCUP PO PRN (15:30)
[2019-05-17] MEDS ORDERED: LIDOCAINE HCL-MPF 1% 2ML VIAL IJ PRN (15:30)
[2019-05-17] MEDS ORDERED: DIPHENHYDRAMINE HCL 25 MG CAPSULE PO PRN (15:30)
[2019-05-17] MEDS ORDERED: ACETAMINOPHEN-CODEINE 300/30MG TAB PO PRN (15:30)
[2019-05-17] MEDS ORDERED: LACTULOSE 20 GM/30 ML UDCUP PO PRN (15:30)
[2019-05-17] MEDS ORDERED: POTASSIUM CHLORIDE 10% ELIXIR 20 MEQ/15 ML UDCUP PO PRN (15:30)
[2019-05-17] MEDS ORDERED: AMLODIPINE BESYLATE 5 MG TAB PO ONE (16:11)
[2019-05-17] MEDS ORDERED: ENOXAPARIN SODIUM 30 MG/0.3 ML SQ ONE (16:11)
[2019-05-17] MEDS ORDERED: PANTOPRAZOLE SODIUM 40 MG TABLET.DR PO SCH (16:50)
[2019-05-17] MEDS ORDERED: LIDOCAINE HCL 2% VISCOUS 60 ML, MAG HYDROX/AL HYDROX/SIMETH 60 ML, DICYCLOMINE HCL 40 MG PO PRN ×3 (17:00)
[2019-05-17] MEDS ORDERED: COMPOUND PO MISCELLANEOUS 1 EACH MISC MISC PRN (17:00)
[2019-05-17] MEDS: NITROGLYCERIN 1GM/1 INCH PACKET TD SCH ×2 (18:00→23:02)
[2019-05-17 20:27] VITALS: BP 129/57
[2019-05-17] MEDS: PANTOPRAZOLE SODIUM 40 MG TABLET.DR PO SCH (21:00)
[2019-05-17] MEDS: INSULIN R PO SS1 SQ SCH (21:00)
--- NOTE | 2019-05-17 21:30 | NUR ---
admission note admit to room 403 via stretcher from from er. patient awake, alert, ox3, no sob, no c/o pain at this time, teach patient plan of care and expected outcome, both verbalize understanding via teach back
[2019-05-17] MEDS: CLONAZEPAM 0.5 MG TABLET PO SCH (21:43)
[2019-05-17] MEDS: LOSARTAN 50 MG TABLET PO SCH (21:43)
[2019-05-17] MEDS: ATORVASTATIN CALCIUM 40 MG TABLET PO SCH (21:44)
[2019-05-17] MEDS: METOPROLOL TARTRATE 50 MG TAB PO SCH (21:44)
[2019-05-17] MEDS: ISOSORBIDE MONO 60 MG TAB.SR PO SCH (21:48)
[2019-05-17 23:31] LABS: CREATINE KINASE, TOTAL 27 U/L (21-232); MYOGLOBIN 20 ng/mL (10-92); TROPONIN I < 0.04 ng/mL (0.00-0.06)
[2019-05-17 23:45] VITALS: BP 118/61
[2019-05-18 03:30] VITALS: BP 129/71
[2019-05-18] MEDS: NITROGLYCERIN 1GM/1 INCH PACKET TD SCH ×4 (05:43→23:47)
[2019-05-18] MEDS: INSULIN R PO SS1 SQ SCH ×4 (05:44→21:00)
[2019-05-18 07:54] VITALS: BP 146/65
[2019-05-18] MEDS: ISOSORBIDE MONO 60 MG TAB.SR PO SCH ×2 (09:00→20:02)
[2019-05-18] MEDS: METOPROLOL TARTRATE 50 MG TAB PO SCH ×2 (09:00→20:02)
[2019-05-18] MEDS: LOSARTAN 100 MG TABLET PO SCH (10:13)
[2019-05-18] MEDS: PANTOPRAZOLE SODIUM 40 MG TABLET.DR PO SCH ×2 (10:13→20:05)
[2019-05-18] MEDS: ENOXAPARIN SODIUM 30 MG/0.3 ML SQ SCH (10:14)
[2019-05-18] MEDS: ASPIRIN 325 MG TABLET PO SCH (10:14)
[2019-05-18] MEDS: AMLODIPINE BESYLATE 5 MG TAB PO SCH (10:14)
[2019-05-18] MEDS ORDERED: REGADENOSON 0.4 MG/5 ML PF SYG IVP SCH (10:30)
[2019-05-18 11:05] VITALS: BP 140/73
[2019-05-18 15:58] VITALS: BP 126/66
--- NOTE | 2019-05-18 16:27 | NUR ---
cm note pt resides at home with spouse, independent with adls and ambulation. no dme. dc plan is back to home at time of dc. Addendum: 05/18/19 at 1628 by SUSHILA VIERA CM Amended: Links added.
[2019-05-18 19:19] VITALS: BP 141/73
[2019-05-18] MEDS: ATORVASTATIN CALCIUM 40 MG TABLET PO SCH (20:02)
[2019-05-18] MEDS: CLONAZEPAM 0.5 MG TABLET PO SCH (20:02)
[2019-05-18] MEDS: LOSARTAN 50 MG TABLET PO SCH (20:02)
[2019-05-18 23:27] VITALS: BP 114/56
[2019-05-19 03:18] VITALS: BP 120/57
[2019-05-19] MEDS: NITROGLYCERIN 1GM/1 INCH PACKET TD SCH ×2 (05:25→11:41)
[2019-05-19] MEDS: INSULIN R PO SS1 SQ SCH ×2 (06:34→11:30)
[2019-05-19 07:47] VITALS: BP 128/64
[2019-05-19] MEDS: ENOXAPARIN SODIUM 30 MG/0.3 ML SQ SCH (09:00)
[2019-05-19] MEDS ORDERED: PREG25 PO (09:36)
[2019-05-19] MEDS ORDERED: TIZA2CAP9 PO (09:36)
[2019-05-19] MEDS ORDERED: FAMO20TA8 PO (09:36)
[2019-05-19] MEDS ORDERED: INSU100V12 SQ (09:36)
[2019-05-19] MEDS ORDERED: DEXL60CA3 PO (09:36)
[2019-05-19] MEDS ORDERED: AEC81 PO (09:36)
[2019-05-19] MEDS ORDERED: CLON0.5T12 PO (09:36)
[2019-05-19] MEDS ORDERED: TYL3B PO (09:36)
[2019-05-19] MEDS ORDERED: FLUT1AER IH (09:36)
[2019-05-19] MEDS ORDERED: MYLANTA PO (09:42)
[2019-05-19] MEDS ORDERED: [UNRECOGNIZED DRUG - OTHER] PO (09:42)
[2019-05-19] MEDS ORDERED: METO-409 PO (09:43)
[2019-05-19] MEDS: AMLODIPINE BESYLATE 5 MG TAB PO SCH (09:54)
[2019-05-19] MEDS: ISOSORBIDE MONO 60 MG TAB.SR PO SCH (09:54)
[2019-05-19] MEDS: PANTOPRAZOLE SODIUM 40 MG TABLET.DR PO SCH (09:55)
[2019-05-19] MEDS: METOPROLOL TARTRATE 50 MG TAB PO SCH (09:55)
[2019-05-19] MEDS: LOSARTAN 100 MG TABLET PO SCH (09:55)
[2019-05-19] MEDS: ASPIRIN 325 MG TABLET PO SCH (09:55)
[2019-05-19 11:47] VITALS: BP 107/58
--- NOTE | 2019-05-19 16:01 | NUR ---
RD NOTIFICATION DX: CHEST PAIN. DIET: 75GM CCD. LBM: 05/18. PO INTAKE 50-75% AND HAS POOR APPETITE PER PT. NO RECENT WEIGHT CHANGES. UBW 190# ONE YEAR- AGO. PT HAS A 20% WEIGHT LOSS ON ONE YEAR. THERE IS PHYSICAL EVIDENCE OF FAT LOSS. RD RECOMMENDS TO CONTINUE CURRENT DIET. OFFER GLUCERNA ONCE DAILY. RD WILL CONTINUE TO MONITOR AND FOLLOW UP NEEDED. THANK YOU. Addendum: 05/19/19 at [address] Amended: Links added.
--- NOTE | 2019-05-19 16:47 | NUR ---
DISCHARGE PATIENT GIVEN DISCHARGE INSTRUCTIONS VIA TEACH BACK. 22G PIV TO RIGHT HAND DISCONTINUED, TIP INTACT. PATIENT TO CONTINUE HOME MEDS AND KEEP FOLLOW UP APPOINTMENTS WITH DR. CAMPBELL AND DR. MONTOYA. PATIENT STABLE AT THIS TIME. PATIENT WHEELED TO LOBBY BY JEFFREY BEGUM.
== END 2019-05-19 16:52 | disposition home or self-care (01) ==
LOC: EDH 10:49 → EDHIP 11:40 → 4AH 20:17
PROVIDERS: ADMIT Internal Medicine; ATTEND Internal Medicine
DX: R07.89 Other chest pain (principal); I13.0 Hypertensive heart and chronic kidney disease with heart failure and stage 1 through stage 4 chronic kidney disease, or unspecified chronic kidney disease; I50.9 Heart failure, unspecified; N18.2 Chronic kidney disease, stage 2 (mild); E11.21 Type 2 diabetes mellitus with diabetic nephropathy; E11.22 Type 2 diabetes mellitus with diabetic chronic kidney disease; E11.49 Type 2 diabetes mellitus with other diabetic neurological complication; E11.51 Type 2 diabetes mellitus with diabetic peripheral angiopathy without gangrene; E78.2 Mixed hyperlipidemia; I25.10 Atherosclerotic heart disease of native coronary artery without angina pectoris; I48.0 Paroxysmal atrial fibrillation; I70.0 Atherosclerosis of aorta; J44.9 Chronic obstructive pulmonary disease, unspecified; M19.90 Unspecified osteoarthritis, unspecified site; M81.0 Age-related osteoporosis without current pathological fracture; F32.9 Major depressive disorder, single episode, unspecified; F41.1 Generalized anxiety disorder; Z79.4 Long term (current) use of insulin; Z79.51 Long term (current) use of inhaled steroids; Z79.899 Other long term (current) drug therapy; Z87.891 Personal history of nicotine dependence; Z95.1 Presence of aortocoronary bypass graft; Z95.5 Presence of coronary angioplasty implant and graft; Z82.0 Family history of epilepsy and other diseases of the nervous system; Z82.3 Family history of stroke; Z82.49 Family history of ischemic heart disease and other diseases of the circulatory system; Z82.5 Family history of asthma and other chronic lower respiratory diseases; Z83.3 Family history of diabetes mellitus
CPT/HCPCS: 36415; 71045; 78452; 80053; 82550; 82948 ×10; 83874; 84484 ×3; 85025; 85610; 85730; 93005; 93017; 96372; 99291; A9500 ×2; G0378 ×47; J1650 ×2; J2785; J7040; 96374

== ENCOUNTER 2019-09-09 00:18 | Emergency (ER) | payer OTHER, MEDICARE ==
[~2019-09-09 00:18] MED LIST changes: +AEC81 PO; -AMLO5TAB9 PO; -ASPI-891 PO; -CLON0.5T12 PO; +CLON0.5T4 PO; +DEXL60CA3 PO; -ESOM40CA PO; +FAMO20TA8 PO; +FLUT1AER IH; -GICOCKTAIL PO; +METO-409 PO; -METO50TA18 PO; +MYLANTA PO; +PREG25 PO; +TIZA2CAP9 PO; -TYL3 PO; +TYL3B PO; +[UNRECOGNIZED DRUG - OTHER] PO
[2019-09-09] MEDS ORDERED: ASPIRIN 325 MG TABLET ONE (00:36)
[2019-09-09 00:46] LABS: BASOPHILS % (AUTO) 0.6 % (0.0-5.0); LYMPHOCYTES % (AUTO) 24.1 % (21.0-51.0); MEAN CORPUSCULAR HEMOGLOBIN 30.3 pg (27.0-33.0); MEAN CORPUSCULAR HGB CONC 34.5 g/dL (32.0-36.0); MEAN CORPUSCULAR VOLUME 87.7 fL (79-99); NEUTROPHILS % (AUTO) 65.2 % (40.0-77.0); PLATELET COUNT (AUTO) 145 K/uL (130-400); RED BLOOD CELL COUNT(AUTO) 4.56 MIL/uL (4.00-5.50); RED CELL DISTRIBUTION WIDTH 12.2 % (11.0-15.5)
[2019-09-09 00:56] LABS: CREATININE 0.9 mg/dL (0.5-1.5)
[2019-09-09 01:01] LABS: ALBUMIN 3.3 g/dL (3.5-5.0); B-TYPE NATRIURETIC PEPTIDE 86 pg/mL (0-100); BILIRUBIN,TOTAL 0.5 mg/dL (0.2-1.0); TOTAL PROTEIN, SERUM 6.3 g/dL (6.0-8.3)
[2019-09-09] MEDS ORDERED: NITROGLYCERIN 1GM/1 INCH PACKET TD ONE (01:13)
[2019-09-09 01:47] LABS: INR 1.03 (0.85-1.15); PARTIAL THROMBOPLASTIN TIME 26.4 SEC (26.3-35.5); PROTHROMBIN TIME 10.8 SEC (9.6-11.6)
== END 2019-09-09 06:08 | disposition home or self-care (01) ==
LOC: EDH 00:18
DX: R07.89 Other chest pain (principal); I16.0 Hypertensive urgency; E11.9 Type 2 diabetes mellitus without complications; E78.5 Hyperlipidemia, unspecified; I10 Essential (primary) hypertension
CPT/HCPCS: 36415; 71045; 80053; 82550; 83880; 84484; 85025; 85610; 85730; 93005

== ENCOUNTER 2020-01-23 00:31 | Emergency (ER) | payer OTHER, MEDICARE ==
[2020-01-23] MEDS ORDERED: HYDRALAZINE HCL 20 MG/ML VIAL ONE ×2 (00:52→00:59)
[2020-01-23 01:13] LABS: BASOPHILS % (AUTO) 0.5 % (0.0-5.0); EOSINOPHILS % (AUTO) 3.6 % (0.0-8.0); HEMATOCRIT 38.7 % (36-48); LYMPHOCYTES % (AUTO) 23.8 % (21.0-51.0); MEAN CORPUSCULAR HEMOGLOBIN 30.7 pg (27.0-33.0); MEAN CORPUSCULAR HGB CONC 34.4 g/dL (32.0-36.0); MEAN CORPUSCULAR VOLUME 89.4 fL (79-99); NEUTROPHILS % (AUTO) 66.8 % (40.0-77.0); PLATELET COUNT (AUTO) 143 K/uL (130-400); RED BLOOD CELL COUNT(AUTO) 4.33 MIL/uL (4.00-5.50); RED CELL DISTRIBUTION WIDTH 12.3 % (11.0-15.5)
[2020-01-23 01:24] LABS: CREATININE 1.3 mg/dL (0.5-1.5); POTASSIUM 4.2 mmol/L (3.5-5.1)
[2020-01-23 01:25] LABS: INR 0.96 (0.85-1.15); PARTIAL THROMBOPLASTIN TIME 26.4 SEC (26.3-35.5); PROTHROMBIN TIME 10.4 SEC (9.6-11.6)
[2020-01-23 01:30] LABS: ALBUMIN 3.4 g/dL (3.5-5.0); BILIRUBIN,TOTAL 0.5 mg/dL (0.2-1.0); TOTAL PROTEIN, SERUM 6.3 g/dL (6.0-8.3)
== END 2020-01-23 03:33 | disposition left against medical advice (07) ==
LOC: EDH 00:31
DX: R07.89 Other chest pain (principal); I10 Essential (primary) hypertension; I25.10 Atherosclerotic heart disease of native coronary artery without angina pectoris; E11.9 Type 2 diabetes mellitus without complications; E78.5 Hyperlipidemia, unspecified
CPT/HCPCS: 36415; 71045; 80053; 82550; 84484; 85025; 85610; 85730; 93005; 96374; 99285; J0360 ×2

== ENCOUNTER → 2020-05-27 | Outpatient (CLI) | payer OTHER, MEDICARE | END | disposition home or self-care (01) | LOC: RAH 09:20 | PROVIDERS: ATTEND Internal Medicine | DX: M54.5 Low back pain (principal); M51.36 Other intervertebral disc degeneration, lumbar region | CPT/HCPCS: 72100 ==

== ENCOUNTER 2021-06-17 22:48 | Observation (INO) | payer OTHER, MEDICARE ==
[~2021-06-17] VITALS: Ht 162.6 cm; Wt 69.7 kg
[2021-06-17] MEDS ORDERED: ASPIRIN 325MG TAB ONE (22:54)
[2021-06-17] MEDS ORDERED: NITROGLYCERIN 0.4 MG SL TAB SL ONE (22:54)
[2021-06-17] MEDS ORDERED: NITROGLYCERIN 1GM OINT 1 INCH/1GM TD ONE (23:00)
[2021-06-17] MEDS ORDERED: NITROGLYCERIN 0.4 MG SL TAB SL PRN (23:00)
[2021-06-17] MEDS ORDERED: ASPIRIN 325MG TAB PO ONE (23:00)
[2021-06-17 23:26] LABS: BASOPHILS % (AUTO) 0.5 % (0.0-5.0); EOSINOPHILS % (AUTO) 3.1 % (0.0-8.0); HEMATOCRIT 39.3 % (36-48); LYMPHOCYTES % (AUTO) 22.8 % (21.0-51.0); MEAN CORPUSCULAR HEMOGLOBIN 30.5 pg (27.0-33.0); MEAN CORPUSCULAR HGB CONC 34.1 g/dL (32.0-36.0); MEAN CORPUSCULAR VOLUME 89.5 fL (79-99); MONOCYTES % (AUTO) 4.6 % (3.0-13.0); NEUTROPHILS % (AUTO) 68.6 % (40.0-77.0); PLATELET COUNT (AUTO) 151 K/uL (130-400); RED BLOOD CELL COUNT(AUTO) 4.39 MIL/uL (4.00-5.50); RED CELL DISTRIBUTION WIDTH 12.5 % (11.0-15.5); WHITE BLOOD COUNT (AUTO) 7.8 K/uL (4.8-10.8)
[2021-06-17 23:46] LABS: CREATININE 1.1 mg/dL (0.5-1.5); POTASSIUM 4.2 mmol/L (3.5-5.1)
[2021-06-17 23:50] LABS: ALBUMIN 3.4 g/dL (3.5-5.0); BILIRUBIN,TOTAL 0.5 mg/dL (0.2-1.0); TOTAL PROTEIN, SERUM 6.4 g/dL (6.0-8.3)
[2021-06-18 01:51] LABS: APPEARANCE,URINE Clear (CLEAR); BILIRUBIN,URINE Negative (NEGATIVE); COLOR,URINE Yellow (YELLOW); GLUCOSE, URINE (UA) Negative (NEGATIVE); KETONES,URINE Negative (NEGATIVE); LEUKOCYTE ESTERASE ,URINE Trace (NEGATIVE); NITRATE,URINE Negative (NEGATIVE); OCCULT BLOOD,URINE Negative (NEGATIVE); PH,URINE 6.5 (5.0-8.0); PROTEIN,URINE Negative (NEGATIVE); UROBILINOGEN,URINE 0.2 mg/dL (0.2-1.0)
[2021-06-18 02:20] LABS: RBC,URINE 0-1 /HPF (0-1)
[2021-06-18 02:21] LABS: BACTERIA,URINE None Seen /HPF (None Seen)
[2021-06-18 02:22] LABS: SQUAMOUS EPITHELIAL CELL,UR Few /HPF (0-2)
[2021-06-18] MEDS ORDERED: SIMVASTATIN 20 MG TABLET PO ONE (02:30)
[2021-06-18] MEDS ORDERED: LOSARTAN 25 MG TABLET PO ONE (02:30)
[2021-06-18] MEDS ORDERED: NITROGLYCERIN 1GM OINT 1 INCH/1GM TD SCH (03:00)
[2021-06-18] MEDS ORDERED: ONDANSETRON 4MG INJ IV PRN ×2 (03:00→17:30)
[2021-06-18] MEDS ORDERED: MORPHINE 4 MG SYG IV PRN (03:00)
[2021-06-18] MEDS ORDERED: LOSA25TA41 PO (03:27)
[2021-06-18] MEDS ORDERED: HEPARIN 5,000 UNIT VIAL SQ SCH ×2 (09:00→21:00)
[2021-06-18] MEDS ORDERED: FAMOTIDINE 20MG TAB PO SCH (09:00)
[2021-06-18] MEDS ORDERED: ASPIRIN 81 MG EC TAB PO SCH ×2 (09:00)
[2021-06-18 09:04] VITALS: BP 179/74
[2021-06-18] MEDS: ISOSORBIDE MONO 60MG SR TAB PO SCH ×2 (09:12→20:24)
[2021-06-18] MEDS: METOPROLOL SUCCINATE 50 MG TAB.SR.24H PO SCH (09:12)
[2021-06-18 11:41] VITALS: BP 184/78
[2021-06-18 16:00] VITALS: BP 155/74
[2021-06-18] MEDS ORDERED: INSU100I21 SQ (17:01)
[2021-06-18] MEDS ORDERED: FLUT1BLS9 IH (17:01)
[2021-06-18] MEDS ORDERED: BUSP7.5T7 PO (17:01)
[2021-06-18] MEDS ORDERED: ASPI-891 PO (17:01)
[2021-06-18] MEDS ORDERED: DEXL60CA3 PO (17:01)
[2021-06-18] MEDS ORDERED: DIPHENHYDRAMINE HCL 25 MG CAPSULE PO PRN (17:30)
[2021-06-18] MEDS ORDERED: LACTULOSE 20 GM/30 ML UDCUP PO PRN (17:30)
[2021-06-18] MEDS ORDERED: LIDOCAINE HCL-MPF 1% 2ML VIAL IV PRN (17:30)
[2021-06-18] MEDS ORDERED: NITROGLYCERIN SL SCH (17:30)
[2021-06-18] MEDS ORDERED: POTASSIUM CHLORIDE 10% ELIXIR 20 MEQ/15 ML UDCUP PO PRN (17:30)
[2021-06-18] MEDS ORDERED: DEXTROSE 50%-WATER 50 ML DISP.SYRIN IV PRN (17:30)
[2021-06-18] MEDS ORDERED: GLUCAGON 1MG KIT 1 MG ML IM PRN (17:30)
[2021-06-18] MEDS ORDERED: DiphenhydrAMINE HCL 50 MG/ML VIAL IV PRN (17:30)
[2021-06-18] MEDS ORDERED: POTASSIUM CHLORIDE 20MEQ/100ML 100 ML IV PRN (17:30)
[2021-06-18] MEDS ORDERED: ACETAMINOPHEN WITH CODEINE 1 TAB TAB PO PRN (17:30)
[2021-06-18] MEDS ORDERED: KCL 20 MEQ ERTAB PO PRN (17:30)
[2021-06-18] MEDS ORDERED: ACETAMINOPHEN 325 MG TAB PO PRN ×2 (17:30)
[2021-06-18] MEDS ORDERED: HYDRALAZINE 20MG/ML VIAL IV PRN (17:30)
[2021-06-18] MEDS ORDERED: BUSPIRONE HCL 5 MG TABLET PO PRN (18:00)
[2021-06-18] MEDS ORDERED: NITROGLYCERIN 4.1 GM SPRAY TL PRN (18:00)
[2021-06-18 20:00] VITALS: BP_SYST 190; BP_SYST 191; BP_DIAS 79; BP_DIAS 81
[2021-06-18] MEDS: FLUTICASONE PROPION IH SCH (20:24)
[2021-06-18] MEDS: SALMETEROL IH SCH (20:24)
[2021-06-18] MEDS: INSULIN HUMULIN R 100 UNIT/ML 3ML SQ SCH (20:30)
[2021-06-18] MEDS ORDERED: LOSARTAN 25 MG TABLET PO SCH (21:00)
[2021-06-18] MEDS ORDERED: ATORVASTATIN 40 MG TABLET PO SCH (21:00)
[2021-06-19] VITALS: BP 190/79
[2021-06-19 01:00] VITALS: BP 110/50
[2021-06-19 04:00] VITALS: BP 102/54
[2021-06-19 05:06] LABS: BASOPHILS % (AUTO) 0.7 % (0.0-5.0); EOSINOPHILS % (AUTO) 3.7 % (0.0-8.0); HEMATOCRIT 37.9 % (36-48); LYMPHOCYTES % (AUTO) 26.8 % (21.0-51.0); MEAN CORPUSCULAR HEMOGLOBIN 29.9 pg (27.0-33.0); MEAN CORPUSCULAR HGB CONC 33.8 g/dL (32.0-36.0); MEAN CORPUSCULAR VOLUME 88.6 fL (79-99); MONOCYTES % (AUTO) 5.6 % (3.0-13.0); NEUTROPHILS % (AUTO) 63.1 % (40.0-77.0); PLATELET COUNT (AUTO) 145 K/uL (130-400); RED BLOOD CELL COUNT(AUTO) 4.28 MIL/uL (4.00-5.50); RED CELL DISTRIBUTION WIDTH 12.6 % (11.0-15.5); WHITE BLOOD COUNT (AUTO) 7.5 K/uL (4.8-10.8)
[2021-06-19 05:16] LABS: CREATININE 0.8 mg/dL (0.5-1.5); MAGNESIUM 1.8 mg/dL (1.80-2.40); POTASSIUM 3.7 mmol/L (3.5-5.1)
[2021-06-19] MEDS: INSULIN HUMULIN R 100 UNIT/ML 3ML SQ SCH (06:30)
[2021-06-19] MEDS: METOPROLOL SUCCINATE 50 MG TAB.SR.24H PO SCH (07:12)
[2021-06-19] MEDS: ISOSORBIDE MONO 60MG SR TAB PO SCH (07:12)
[2021-06-19] MEDS: SALMETEROL IH SCH (07:13)
[2021-06-19] MEDS: FLUTICASONE PROPION IH SCH (07:13)
[2021-06-19] MEDS ORDERED: INSULIN GLARGINE 100 UNITS/ML 10 ML VIAL SQ SCH (08:00)
[2021-06-19 08:54] VITALS: BP 115/55
[2021-06-19] MEDS ORDERED: ASPIRIN 325MG EC TAB PO SCH (09:00)
[2021-06-19] MEDS ORDERED: INSULIN DETEMIR 13 UNIT SQ SCH (09:00)
[2021-06-20] MEDS ORDERED: PANTOPRAZOLE 40 MG TAB DR PO SCH (09:00)
[2021-06-25] MEDS ORDERED: Dulaglutide (Trulicity) 1.5 MG SQ SCH (09:00)
== END 2021-06-19 11:30 | disposition home or self-care (01) ==
LOC: EDH 22:48 → EDHIP 06-18 02:58 → 4DH 06-18 09:00
PROVIDERS: ADMIT Internal Medicine; ATTEND Internal Medicine
DX: R78.9 Finding of unspecified substance, not normally found in blood (principal); I13.0 Hypertensive heart and chronic kidney disease with heart failure and stage 1 through stage 4 chronic kidney disease, or unspecified chronic kidney disease; E11.22 Type 2 diabetes mellitus with diabetic chronic kidney disease; I50.22 Chronic systolic (congestive) heart failure; N18.2 Chronic kidney disease, stage 2 (mild); E78.5 Hyperlipidemia, unspecified; I45.4 Nonspecific intraventricular block; R55 Syncope and collapse; K21.9 Gastro-esophageal reflux disease without esophagitis; F32.0 Major depressive disorder, single episode, mild; F41.1 Generalized anxiety disorder; I25.118 Atherosclerotic heart disease of native coronary artery with other forms of angina pectoris; G43.109 Migraine with aura, not intractable, without status migrainosus; J44.9 Chronic obstructive pulmonary disease, unspecified; I70.0 Atherosclerosis of aorta; I65.29 Occlusion and stenosis of unspecified carotid artery; K29.50 Unspecified chronic gastritis without bleeding; E11.49 Type 2 diabetes mellitus with other diabetic neurological complication; E11.51 Type 2 diabetes mellitus with diabetic peripheral angiopathy without gangrene; M19.90 Unspecified osteoarthritis, unspecified site; M51.9 Unspecified thoracic, thoracolumbar and lumbosacral intervertebral disc disorder; Z79.82 Long term (current) use of aspirin; Z79.899 Other long term (current) drug therapy; Z87.891 Personal history of nicotine dependence; Z79.4 Long term (current) use of insulin; Z79.51 Long term (current) use of inhaled steroids; Z95.1 Presence of aortocoronary bypass graft; Z95.5 Presence of coronary angioplasty implant and graft
CPT/HCPCS: 36415 ×2; 71045; 80048; 80053; 81001; 82948 ×2; 83735; 83880; 84100; 84484 ×4; 85025 ×2; 86140; 93005; 96372 ×2; 99285; G0378 ×18; J0360; J1644

== ENCOUNTER 2021-12-09 11:45 | Observation (INO) | payer OTHER, MEDICARE ==
[~2021-12-09] VITALS: Ht 162.6 cm; Wt 69.6 kg
[~2021-12-09 11:45] MED LIST changes: -AEC81 PO; +ASPI-891 PO; +BUSP7.5T7 PO; -CLON0.5T4 PO; -FAMO20TA8 PO; -FLUT1AER IH; +FLUT1BLS9 IH; +INSU100I21 SQ; -LOSA100T58 PO; +LOSA25TA41 PO; -LOSA50TA64 PO; -MYLANTA PO; -PREG25 PO; -TIZA2CAP9 PO; -[UNRECOGNIZED DRUG - OTHER] PO
[2021-12-09] MEDS ORDERED: NITROGLYCERIN 1GM OINT 1 INCH/1GM TD ONE ×2 (11:59→12:00)
[2021-12-09] MEDS ORDERED: NITROGLYCERIN 0.4 MG SL TAB SL PRN ×2 (12:00→16:00)
[2021-12-09 12:14] LABS: BASOPHILS % (AUTO) 0.6 % (0.0-5.0); EOSINOPHILS % (AUTO) 4.4 % (0.0-8.0); HEMATOCRIT 40.3 % (36-48); LYMPHOCYTES % (AUTO) 22.7 % (21.0-51.0); MEAN CORPUSCULAR HEMOGLOBIN 30.6 pg (27.0-33.0); MEAN CORPUSCULAR VOLUME 90.2 fL (79-99); MONOCYTES % (AUTO) 5.1 % (3.0-13.0); NEUTROPHILS % (AUTO) 66.9 % (40.0-77.0); PLATELET COUNT (AUTO) 139 K/uL (130-400); RED BLOOD CELL COUNT(AUTO) 4.47 MIL/uL (4.00-5.50); RED CELL DISTRIBUTION WIDTH 12.6 % (11.0-15.5); WHITE BLOOD COUNT (AUTO) 6.3 K/uL (4.8-10.8)
[2021-12-09 12:35] LABS: CREATININE 0.8 mg/dL (0.5-1.5); POTASSIUM 4.2 mmol/L (3.5-5.1)
[2021-12-09 12:40] LABS: ALBUMIN 3.3 g/dL (3.5-5.0); BILIRUBIN,TOTAL 0.7 mg/dL (0.2-1.0); MAGNESIUM 1.8 mg/dL (1.80-2.40); TOTAL PROTEIN, SERUM 6.4 g/dL (6.0-8.3)
[2021-12-09] MEDS ORDERED: CLON0.1T PO ×2 (13:01→13:02)
[2021-12-09] MEDS ORDERED: FLUT1BLS8 IH (13:01)
[2021-12-09] MEDS ORDERED: PANT40TA54 PO ×2 (13:01→13:45)
[2021-12-09] MEDS ORDERED: DEXL60CA3 PO (13:01)
[2021-12-09] MEDS ORDERED: LOSA50TA64 PO ×2 (13:01→13:45)
[2021-12-09] MEDS ORDERED: RANO500T6 PO (13:01)
[2021-12-09] MEDS ORDERED: NITR0.4T SL ×2 (13:03→13:05)
[2021-12-09] MEDS ORDERED: FLUT16H NASAL (13:06)
[2021-12-09] MEDS ORDERED: INSU100V12 SQ (13:45)
[2021-12-09] MEDS ORDERED: ROSU20TA31 PO (13:45)
[2021-12-09] MEDS ORDERED: ISOS60TA77 PO (13:45)
[2021-12-09] MEDS ORDERED: METO-409 PO (13:45)
[2021-12-09] MEDS ORDERED: CLON1PAT TD (13:45)
[2021-12-09] MEDS ORDERED: ACETAMINOPHEN 325 MG TAB PO PRN ×3 (14:00→16:00)
[2021-12-09] MEDS ORDERED: ONDANSETRON 4MG INJ IVP PRN (14:00)
[2021-12-09] MEDS ORDERED: LACTULOSE 20 GM/30 ML UDCUP PO PRN (16:00)
[2021-12-09] MEDS ORDERED: DIPHENHYDRAMINE HCL 25 MG CAPSULE PO PRN (16:00)
[2021-12-09] MEDS ORDERED: GUAIFENESIN-DM 200/20 MG 10 ML PO PRN (16:00)
[2021-12-09] MEDS ORDERED: ALBUTEROL 0.083% 2.5 MG/3 ML INH IH PRN (16:00)
[2021-12-09] MEDS ORDERED: DiphenhydrAMINE HCL 50 MG/ML VIAL IV PRN (16:00)
[2021-12-09] MEDS ORDERED: MAG/ALUM/SIMETH 30 ML UDCUP PO PRN (16:00)
[2021-12-09] MEDS ORDERED: ONDANSETRON 4MG INJ IV PRN (16:00)
[2021-12-09 16:14] VITALS: BP 170/79
[2021-12-09] MEDS ORDERED: KCL 20 MEQ ERTAB PO PRN (16:30)
[2021-12-09] MEDS ORDERED: POTASSIUM CHLORIDE 20MEQ/100ML 100 ML IV PRN ×2 (16:30)
[2021-12-09] MEDS ORDERED: GLUCAGON 1MG KIT 1 MG ML IM PRN (16:30)
[2021-12-09] MEDS ORDERED: DEXTROSE 50%-WATER 50 ML DISP.SYRIN IV PRN (16:30)
[2021-12-09] MEDS ORDERED: POTASSIUM CHLORIDE 10% ELIXIR 20 MEQ/15 ML UDCUP PO PRN (16:30)
[2021-12-09] MEDS ORDERED: LIDOCAINE HCL-MPF 1% 2ML VIAL IV PRN ×2 (16:30)
[2021-12-09 20:00] VITALS: BP 183/71
[2021-12-09] MEDS: INSULIN HUMULIN R 100 UNIT/ML 3ML SQ SCH (20:12)
[2021-12-09] MEDS: ISOSORBIDE MONO 60MG SR TAB PO SCH (20:24)
[2021-12-09] MEDS: RANOLAZINE 500 MG TAB.SR.12H PO SCH (20:24)
[2021-12-09] MEDS: ATORVASTATIN 40 MG TABLET PO SCH (20:25)
[2021-12-09] MEDS: LOSARTAN 50 MG TABLET PO SCH (20:25)
[2021-12-09] MEDS ORDERED: LOSARTAN 50 MG TABLET PO SCH (21:00)
[2021-12-10] VITALS: BP 185/76
[2021-12-10 04:00] VITALS: BP 151/70
[2021-12-10] MEDS: 0.9%NACL 1000ML 1,000 ML IV SCH ×2 (06:02→16:40)
[2021-12-10] MEDS: INSULIN HUMULIN R 100 UNIT/ML 3ML SQ SCH ×4 (06:02→20:17)
[2021-12-10 08:00] VITALS: BP 152/61
[2021-12-10] MEDS: FLUTICASONE PROPION IH SCH (09:00)
[2021-12-10] MEDS ORDERED: PANTOPRAZOLE 40 MG TAB DR PO SCH (09:00)
[2021-12-10] MEDS: SALMETEROL IH SCH (09:00)
[2021-12-10] MEDS ORDERED: NON-FORMULARY MEDICATION 1 EACH (Dexlansoprazole (Dexilant) 60 MG) PO SCH (09:00)
[2021-12-10] MEDS: RANOLAZINE 500 MG TAB.SR.12H PO SCH ×2 (09:00→20:12)
[2021-12-10] MEDS: ISOSORBIDE MONO 60MG SR TAB PO SCH ×2 (10:20→20:11)
[2021-12-10] MEDS: METOPROLOL SUCCINATE 50 MG TAB.SR.24H PO SCH (10:20)
[2021-12-10 10:28] LABS: APPEARANCE,URINE Clear (CLEAR); BILIRUBIN,URINE Negative (NEGATIVE); COLOR,URINE Yellow (YELLOW); GLUCOSE, URINE (UA) Negative (NEGATIVE); KETONES,URINE Negative (NEGATIVE); LEUKOCYTE ESTERASE ,URINE Trace (NEGATIVE); NITRATE,URINE Negative (NEGATIVE); OCCULT BLOOD,URINE Negative (NEGATIVE); PROTEIN,URINE Negative (NEGATIVE)
[2021-12-10] MEDS ORDERED: REGADENOSON 0.4 MG/5 ML PF SYG IVP SCH (11:00)
[2021-12-10 11:21] LABS: BACTERIA,URINE Rare /HPF (None Seen); RBC,URINE None Seen /HPF (0-1); WBC,URINE 0-1 /HPF (0-1)
[2021-12-10 12:00] VITALS: BP 192/81
[2021-12-10] MEDS ORDERED: HYDRALAZINE 20MG/ML VIAL IV PRN (12:00)
[2021-12-10] MEDS ORDERED: ALPRAZOLAM 0.5 MG TABLET PO PRN (12:00)
[2021-12-10] MEDS ORDERED: HYDRALAZINE HCL 10 MG TABLET PO PRN (12:00)
[2021-12-10 16:00] VITALS: BP 162/69
[2021-12-10] MEDS: ENOXAPARIN SODIUM 40 MG/0.4 ML SYRINGE SQ SCH (16:48)
[2021-12-10] MEDS: ASPIRIN 325MG EC TAB PO SCH (16:48)
[2021-12-10] MEDS: PANTOPRAZOLE 40 MG TAB DR PO SCH (16:48)
[2021-12-10 20:00] VITALS: BP 164/74
[2021-12-10] MEDS: ATORVASTATIN 40 MG TABLET PO SCH (20:12)
[2021-12-10] MEDS: LOSARTAN 50 MG TABLET PO SCH (20:12)
[2021-12-11] VITALS: BP 156/68
[2021-12-11 03:51] VITALS: BP 123/64
[2021-12-11] MEDS: 0.9%NACL 1000ML 1,000 ML IV SCH (05:03)
[2021-12-11] MEDS: INSULIN HUMULIN R 100 UNIT/ML 3ML SQ SCH (06:32)
[2021-12-11 07:56] VITALS: BP 108/61
[2021-12-11] MEDS: FLUTICASONE PROPION IH SCH (09:00)
[2021-12-11] MEDS: SALMETEROL IH SCH (09:00)
[2021-12-11] MEDS: ENOXAPARIN SODIUM 40 MG/0.4 ML SYRINGE SQ SCH (09:08)
[2021-12-11] MEDS: METOPROLOL SUCCINATE 50 MG TAB.SR.24H PO SCH (09:08)
[2021-12-11] MEDS: ISOSORBIDE MONO 60MG SR TAB PO SCH (09:09)
[2021-12-11] MEDS: PANTOPRAZOLE 40 MG TAB DR PO SCH (09:09)
[2021-12-11] MEDS: RANOLAZINE 500 MG TAB.SR.12H PO SCH (09:09)
[2021-12-11] MEDS: ASPIRIN 325MG EC TAB PO SCH (09:09)
[2021-12-16] MEDS ORDERED: DULAGLUTIDE 1.5 MG SQ SCH (09:00)
== END 2021-12-11 11:31 | disposition home or self-care (01) ==
LOC: EDH 11:45 → EDHIP 12:30 → 4AH 15:20
PROVIDERS: ADMIT Internal Medicine; ATTEND Internal Medicine
DX: R07.89 Other chest pain (principal); K21.9 Gastro-esophageal reflux disease without esophagitis; K29.50 Unspecified chronic gastritis without bleeding; I13.0 Hypertensive heart and chronic kidney disease with heart failure and stage 1 through stage 4 chronic kidney disease, or unspecified chronic kidney disease; I50.9 Heart failure, unspecified; N18.2 Chronic kidney disease, stage 2 (mild); I95.9 Hypotension, unspecified; I25.118 Atherosclerotic heart disease of native coronary artery with other forms of angina pectoris; E11.51 Type 2 diabetes mellitus with diabetic peripheral angiopathy without gangrene; E11.22 Type 2 diabetes mellitus with diabetic chronic kidney disease; E78.5 Hyperlipidemia, unspecified; G43.109 Migraine with aura, not intractable, without status migrainosus; J44.9 Chronic obstructive pulmonary disease, unspecified; I70.0 Atherosclerosis of aorta; I70.203 Unspecified atherosclerosis of native arteries of extremities, bilateral legs; E78.00 Pure hypercholesterolemia, unspecified; F32.0 Major depressive disorder, single episode, mild; F41.1 Generalized anxiety disorder; G89.29 Other chronic pain; E11.49 Type 2 diabetes mellitus with other diabetic neurological complication; I24.9 Acute ischemic heart disease, unspecified; I65.29 Occlusion and stenosis of unspecified carotid artery; M19.90 Unspecified osteoarthritis, unspecified site; M51.9 Unspecified thoracic, thoracolumbar and lumbosacral intervertebral disc disorder; Z79.4 Long term (current) use of insulin; Z95.1 Presence of aortocoronary bypass graft; Z87.891 Personal history of nicotine dependence; Z95.5 Presence of coronary angioplasty implant and graft; Z79.899 Other long term (current) drug therapy
CPT/HCPCS: 36415 ×2; 71045; 78452; 80053; 81001; 82550 ×5; 82948 ×6; 83735; 83874 ×4; 83880; 84484 ×5; 85025; 93005; 93017; 93306; 93356; 96360; 96361; 96372 ×2; 99285; A9500 ×2; G0378 ×44; J1650 ×2; J2785; 96374

== ENCOUNTER 2022-02-15 12:18 | Observation (INO) | payer OTHER, MEDICARE ==
[~2022-02-15] VITALS: Ht 165.1 cm; Wt 71.0 kg
[~2022-02-15 12:18] MED LIST changes: -BUSP7.5T7 PO; +CLON0.1T PO; +FLUT16H NASAL; +FLUT1BLS8 IH; -FLUT1BLS9 IH; -INSU100I21 SQ; +ISOS60TA77 PO; -Isosorbide Mono 60 Mg Tab.sr PO; -LOSA25TA41 PO; +LOSA50TA64 PO; +NITR0.4T SL; -NITR4.1S2 SL; +PANT40TA54 PO; +RANO500T6 PO; -TYL3B PO
[2022-02-15 12:53] LABS: BASOPHILS % (AUTO) 0.6 % (0.0-5.0); EOSINOPHILS % (AUTO) 4.4 % (0.0-8.0); HEMATOCRIT 41.3 % (36-48); LYMPHOCYTES % (AUTO) 19.3 % (21.0-51.0); MEAN CORPUSCULAR HGB CONC 34.1 g/dL (32.0-36.0); MEAN CORPUSCULAR VOLUME 87.9 fL (79-99); MONOCYTES % (AUTO) 4.7 % (3.0-13.0); NEUTROPHILS % (AUTO) 70.9 % (40.0-77.0); PLATELET COUNT (AUTO) 141 K/uL (130-400); RED CELL DISTRIBUTION WIDTH 12.6 % (11.0-15.5); WHITE BLOOD COUNT (AUTO) 7.2 K/uL (4.8-10.8)
[2022-02-15 13:00] LABS: APPEARANCE,URINE CLEAR (CLEAR); BILIRUBIN,URINE NEGATIVE (NEGATIVE); COLOR,URINE YELLOW (YELLOW); GLUCOSE, URINE (UA) NEGATIVE (NEGATIVE); KETONES,URINE NEGATIVE (NEGATIVE); LEUKOCYTE ESTERASE ,URINE NEGATIVE (NEGATIVE); NITRATE,URINE NEGATIVE (NEGATIVE); OCCULT BLOOD,URINE NEGATIVE (NEGATIVE); PH,URINE 7.5 (5.0-8.0); PROTEIN,URINE NEGATIVE (NEGATIVE); UROBILINOGEN,URINE 0.2 mg/dL (0.2-1.0)
[2022-02-15 13:02] LABS: CREATININE 0.9 mg/dL (0.5-1.5); POTASSIUM 4.1 mmol/L (3.5-5.1); PROTHROMBIN TIME 10.9 SEC (9.6-11.6)
[2022-02-15 13:07] LABS: ALBUMIN 3.3 g/dL (3.5-5.0); BILIRUBIN,TOTAL 0.5 mg/dL (0.2-1.0); TOTAL PROTEIN, SERUM 6.4 g/dL (6.0-8.3)
[2022-02-15 13:14] LABS: B-TYPE NATRIURETIC PEPTIDE 147 pg/mL (0-100)
[2022-02-15] MEDS ORDERED: HYDRALAZINE 20MG/ML VIAL IV ONE (17:30)
[2022-02-15] MEDS ORDERED: ASPIRIN 81MG CHEW TAB PO ONE (18:00)
[2022-02-15] MEDS ORDERED: ACETAMINOPHEN 325 MG TAB PO PRN (18:30)
[2022-02-15] MEDS ORDERED: ONDANSETRON 4MG INJ IVP PRN (18:30)
[2022-02-15] MEDS: FAMOTIDINE 20MG TAB PO SCH (18:46)
[2022-02-15] MEDS: INSULIN HUMULIN R 100 UNIT/ML 3ML SQ SCH (20:39)
[2022-02-15] MEDS: METOPROLOL TARTRATE 25 MG TAB PO SCH (20:43)
[2022-02-15] MEDS ORDERED: ATORVASTATIN 40 MG TABLET PO SCH (21:00)
[2022-02-15] MEDS ORDERED: ACET-2079 PO (21:39)
[2022-02-15] MEDS ORDERED: BUSP10TA3 PO (21:39)
[2022-02-16 01:53] VITALS: BP 131/54
[2022-02-16 04:00] VITALS: BP 132/58
[2022-02-16 06:34] LABS: HEMOGLOBIN A1C 6.7 % (4.0-6.0)
[2022-02-16] MEDS: INSULIN HUMULIN R 100 UNIT/ML 3ML SQ SCH (06:41)
[2022-02-16 06:46] LABS: THYROID STIMULATING HORMONE 3.48 uIU/mL (0.36-3.74)
[2022-02-16 08:00] VITALS: BP 123/58
[2022-02-16] MEDS: FAMOTIDINE 20MG TAB PO SCH (08:47)
[2022-02-16] MEDS: METOPROLOL TARTRATE 25 MG TAB PO SCH (08:47)
[2022-02-16] MEDS ORDERED: ENOXAPARIN SODIUM 40 MG/0.4 ML SYRINGE SQ SCH (09:00)
[2022-02-16] MEDS ORDERED: ASPIRIN 81MG CHEW TAB PO SCH (09:00)
[2022-02-16] MEDS ORDERED: LOSA50TA64 PO (11:02)
== END 2022-02-16 12:07 | disposition home or self-care (01) ==
LOC: EDH 12:18 → EDHIP 17:03 → INTOOBSV 17:03 → 4CH 02-16 02:14
PROVIDERS: ADMIT Hospitalist; ATTEND Hospitalist
DX: R07.89 Other chest pain (principal); Z20.822 Contact with and (suspected) exposure to COVID-19; I13.0 Hypertensive heart and chronic kidney disease with heart failure and stage 1 through stage 4 chronic kidney disease, or unspecified chronic kidney disease; E11.22 Type 2 diabetes mellitus with diabetic chronic kidney disease; I50.32 Chronic diastolic (congestive) heart failure; N18.2 Chronic kidney disease, stage 2 (mild); E11.42 Type 2 diabetes mellitus with diabetic polyneuropathy; E66.9 Obesity, unspecified; E78.2 Mixed hyperlipidemia; E78.00 Pure hypercholesterolemia, unspecified; F41.1 Generalized anxiety disorder; I25.10 Atherosclerotic heart disease of native coronary artery without angina pectoris; J44.9 Chronic obstructive pulmonary disease, unspecified; Z87.891 Personal history of nicotine dependence; Z95.1 Presence of aortocoronary bypass graft; Z95.5 Presence of coronary angioplasty implant and graft; Z79.899 Other long term (current) drug therapy
CPT/HCPCS: 36415 ×2; 71045; 80053; 80061; 81003; 82550; 82948 ×3; 83036; 83874; 83880; 84443; 84484 ×3; 85025; 85610; 87635; 93005; 96372; 96374; 99285; G0378 ×2; J0360; J1650

== ENCOUNTER 2022-08-16 07:07 | Day surgery (SDC) | payer OTHER, MEDICARE ==
[2022-08-10 10:56] LABS: BASOPHILS % (AUTO) 0.7 % (0.0-5.0); EOSINOPHILS % (AUTO) 3.3 % (0.0-8.0); HEMATOCRIT 42.3 % (36-48); LYMPHOCYTES % (AUTO) 11.7 % (21.0-51.0); MEAN CORPUSCULAR HEMOGLOBIN 29.6 pg (27.0-33.0); MEAN CORPUSCULAR HGB CONC 33.1 g/dL (32.0-36.0); MEAN CORPUSCULAR VOLUME 89.4 fL (79-99); MONOCYTES % (AUTO) 4.5 % (3.0-13.0); NEUTROPHILS % (AUTO) 79.5 % (40.0-77.0); PLATELET COUNT (AUTO) 145 K/uL (130-400); RED BLOOD CELL COUNT(AUTO) 4.73 MIL/uL (4.00-5.50); RED CELL DISTRIBUTION WIDTH 12.6 % (11.0-15.5); WHITE BLOOD COUNT (AUTO) 9.1 K/uL (4.8-10.8)
[2022-08-10 11:09] LABS: CREATININE 1.1 mg/dL (0.5-1.5); POTASSIUM 4.5 mmol/L (3.5-5.1)
[2022-08-10 11:29] LABS: B-TYPE NATRIURETIC PEPTIDE 139 pg/mL (0-100)
[2022-08-10 11:30] LABS: INR 1.04 (0.85-1.15); PROTHROMBIN TIME 11.3 SEC (9.6-11.6)
[2022-08-10 11:32] LABS: PARTIAL THROMBOPLASTIN TIME 29.6 SEC (26.3-35.5)
[2022-08-11 12:44] LABS: APPEARANCE,URINE CLOUDY (CLEAR); BILIRUBIN,URINE NEGATIVE (NEGATIVE); COLOR,URINE YELLOW (YELLOW); GLUCOSE, URINE (UA) NEGATIVE (NEGATIVE); KETONES,URINE NEGATIVE (NEGATIVE); LEUKOCYTE ESTERASE ,URINE NEGATIVE Leu/uL (NEGATIVE); NITRATE,URINE 2+ (NEGATIVE); OCCULT BLOOD,URINE NEGATIVE (NEGATIVE); PH,URINE 5.5 (5.0-8.0); PROTEIN,URINE 10 mg/dL (NEGATIVE); UROBILINOGEN,URINE 0.2 mg/dL (0.2-1.0)
[2022-08-11 12:49] LABS: BACTERIA,URINE FEW /HPF (None Seen); MUCUS,URINE FEW LPF (None Seen); OTHER CASTS, URINE 2 /LPF (None Seen); SQUAMOUS EPITHELIAL CELL,UR RARE /HPF (0-2)
[2022-08-15 10:49] VITALS: BP 114/60
[~2022-08-16] VITALS: Ht 165.1 cm; Wt 68.2 kg
[2022-08-16] VITALS (10 sets, daily range): BP systolic 104–186; BP diastolic 45–78
[~2022-08-16 07:07] MED LIST changes: +0.9% NACL 500ML IV.SOLN 500 ML IV SCH; +ACET-2079 PO; +ASPI-1026 PO; -ASPI-891 PO; -CLON0.1T PO; -DEXL60CA3 PO; -FLUT16H NASAL; -FLUT1BLS8 IH; +LOSA25TA41 PO; -LOSA50TA64 PO; -NITR0.4T SL; -RANO500T6 PO
[2022-08-16] MEDS ORDERED: 0.9%NACL 1000ML 1,000 ML IV ONE (08:08)
[2022-08-16] MEDS ORDERED: FENTANYL CITRATE PF 50 MCG/1 ML 2ML VIAL ONE ×2 (08:22→10:38)
[2022-08-16] MEDS ORDERED: NITROGLYCERIN 50MG VIAL ONE (08:22)
[2022-08-16] MEDS ORDERED: MIDAZOLAM HCL 1 MG/ML 2ML VIAL ONE (08:22)
[2022-08-16] MEDS ORDERED: IODIXANOL 320 MG/ML 100 ML VIAL ONE (08:22)
[2022-08-16] MEDS ORDERED: BIVALIRUDIN 250 MG/VIAL IV ONE (08:22)
[2022-08-16] MEDS ORDERED: LIDOCAINE HCL 400MG/20ML VIAL ONE (08:22)
[2022-08-16] MEDS ORDERED: IOHEXOL-350 50ML VIAL IV ONE (08:23)
[2022-08-16] MEDS ORDERED: LABETALOL 20MG SYG IV ONE ×3 (10:04→10:27)
[2022-08-16] MEDS ORDERED: IOHEXOL 350 MG/ML 100ML INFUS..BTL IV ONE (10:13)
[2022-08-16] MEDS ORDERED: LABETALOL 20MG VIAL IV ONE (10:38)
[2022-08-16] MEDS ORDERED: DEXTROSE 50%-WATER 50 ML DISP.SYRIN IV PRN (11:00)
[2022-08-16] MEDS ORDERED: GLUCAGON 1MG KIT 1 MG ML IM PRN (11:00)
[2022-08-16] MEDS ORDERED: 0.9%NACL 1000ML 1,000 ML IV SCH (11:00)
[2022-08-16] MEDS ORDERED: INSULIN HUMULIN R 100 UNIT/ML 3ML SQ SCH (11:30)
== END 2022-08-16 15:30 | disposition home or self-care (01) ==
LOC: DAH 07:07
PROVIDERS: ATTEND Internal Medicine Cardiovascular Disease
DX: I25.112 Atherosclerotic heart disease of native coronary artery with refractory angina pectoris (principal); T82.855A Stenosis of coronary artery stent, initial encounter; I25.5 Ischemic cardiomyopathy; I11.0 Hypertensive heart disease with heart failure; I50.32 Chronic diastolic (congestive) heart failure; I45.10 Unspecified right bundle-branch block; E11.9 Type 2 diabetes mellitus without complications; E78.5 Hyperlipidemia, unspecified; Z79.82 Long term (current) use of aspirin; Z79.01 Long term (current) use of anticoagulants; Z90.49 Acquired absence of other specified parts of digestive tract; Z98.890 Other specified postprocedural states; Z90.710 Acquired absence of both cervix and uterus; Z82.49 Family history of ischemic heart disease and other diseases of the circulatory system; Y83.8 Other surgical procedures as the cause of abnormal reaction of the patient, or of later complication, without mention of misadventure at the time of the procedure; Z79.899 Other long term (current) drug therapy
CPT/HCPCS: 80048; 83880; 85025; 85610; 85730; 36415; 71045; 93005; 87077; 87088; 87186; 81001; 93459; 82948 ×2; C1894 ×2; C1760; J3010 ×2; J3490 ×3; J7030; J2250; J1644; Q9967 ×3; A4215; A4222; A4221; A4663; A4216; A4606; A4223 ×3; 96360; 96361; 99156; 99157; J0583

== ENCOUNTER 2022-10-26 18:24 | Emergency (ER) | payer OTHER, MEDICARE ==
[~2022-10-26] VITALS: Ht 165.1 cm; Wt 67.1 kg
[~2022-10-26 18:24] MED LIST changes: -0.9% NACL 500ML IV.SOLN 500 ML IV SCH; -LOSA25TA41 PO; -METO-409 PO
[2022-10-26 18:58] LABS: BASOPHILS % (AUTO) 0.5 % (0.0-5.0); EOSINOPHILS % (AUTO) 3.7 % (0.0-8.0); HEMATOCRIT 37.9 % (36-48); LYMPHOCYTES % (AUTO) 23.1 % (21.0-51.0); MEAN CORPUSCULAR HEMOGLOBIN 30.1 pg (27.0-33.0); MEAN CORPUSCULAR HGB CONC 34.6 g/dL (32.0-36.0); MEAN CORPUSCULAR VOLUME 87.1 fL (79-99); MONOCYTES % (AUTO) 4.8 % (3.0-13.0); NEUTROPHILS % (AUTO) 67.5 % (40.0-77.0); PLATELET COUNT (AUTO) 155 K/uL (130-400); RED BLOOD CELL COUNT(AUTO) 4.35 MIL/uL (4.00-5.50); RED CELL DISTRIBUTION WIDTH 12.4 % (11.0-15.5); WHITE BLOOD COUNT (AUTO) 8.1 K/uL (4.8-10.8)
[2022-10-26 19:06] LABS: POTASSIUM 4.1 mmol/L (3.5-5.1)
[2022-10-26 19:11] LABS: ALBUMIN 3.4 g/dL (3.5-5.0)
[2022-10-26 19:54] LABS: APPEARANCE,URINE CLEAR (CLEAR); BILIRUBIN,URINE NEGATIVE (NEGATIVE); COLOR,URINE COLORLESS (YELLOW); GLUCOSE, URINE (UA) NEGATIVE (NEGATIVE); KETONES,URINE NEGATIVE (NEGATIVE); LEUKOCYTE ESTERASE ,URINE 25 Leu/uL (NEGATIVE); NITRATE,URINE NEGATIVE (NEGATIVE); OCCULT BLOOD,URINE NEGATIVE (NEGATIVE); PH,URINE 6.5 (5.0-8.0); PROTEIN,URINE NEGATIVE (NEGATIVE); UROBILINOGEN,URINE 0.2 mg/dL (0.2-1.0)
[2022-10-26 20:02] LABS: MUCUS,URINE RARE LPF (None Seen); RBC,URINE 0-1 /HPF (0-1); SQUAMOUS EPITHELIAL CELL,UR RARE /HPF (0-2)
[2022-10-26 21:16] VITALS: BP 162/63
== END 2022-10-26 22:06 | disposition home or self-care (01) ==
LOC: EDH 18:24
DX: I25.10 Atherosclerotic heart disease of native coronary artery without angina pectoris (principal); I10 Essential (primary) hypertension; E11.9 Type 2 diabetes mellitus without complications; E78.00 Pure hypercholesterolemia, unspecified; Z95.1 Presence of aortocoronary bypass graft; Z79.4 Long term (current) use of insulin; Z79.82 Long term (current) use of aspirin; Z79.899 Other long term (current) drug therapy
CPT/HCPCS: 36415; 71045; 80053; 81001; 83735; 83880; 84484; 85025; 93005

== ENCOUNTER 2022-11-02 04:40 | Emergency (ER) | payer OTHER, MEDICARE ==
[~2022-11-02] VITALS: Ht 165.1 cm; Wt 69.4 kg
[2022-11-02] MEDS ORDERED: ASPIRIN 81MG CHEW TAB PO ONE (05:00)
[2022-11-02 05:10] LABS: BASOPHILS % (AUTO) 0.5 % (0.0-5.0); EOSINOPHILS % (AUTO) 5.6 % (0.0-8.0); LYMPHOCYTES % (AUTO) 26.4 % (21.0-51.0); MEAN CORPUSCULAR HEMOGLOBIN 30.3 pg (27.0-33.0); MEAN CORPUSCULAR HGB CONC 34.5 g/dL (32.0-36.0); MONOCYTES % (AUTO) 4.8 % (3.0-13.0); NEUTROPHILS % (AUTO) 62.4 % (40.0-77.0); PLATELET COUNT (AUTO) 147 K/uL (130-400); RED BLOOD CELL COUNT(AUTO) 4.32 MIL/uL (4.00-5.50); RED CELL DISTRIBUTION WIDTH 12.5 % (11.0-15.5); WHITE BLOOD COUNT (AUTO) 7.9 K/uL (4.8-10.8)
[2022-11-02 05:25] LABS: ALBUMIN 3.3 g/dL (3.5-5.0)
[2022-11-02] MEDS ORDERED: HYDRALAZINE 20MG/ML VIAL ONE (05:35)
[2022-11-02 05:52] VITALS: BP 122/44
[2022-11-02] MEDS ORDERED: HYDRALAZINE 20MG/ML VIAL IV ONE (06:00)
== END 2022-11-02 06:54 | disposition home or self-care (01) ==
LOC: EDH 04:40
DX: I10 Essential (primary) hypertension (principal); E11.9 Type 2 diabetes mellitus without complications; E78.00 Pure hypercholesterolemia, unspecified; Z90.49 Acquired absence of other specified parts of digestive tract; Z90.710 Acquired absence of both cervix and uterus; Z79.82 Long term (current) use of aspirin; Z79.4 Long term (current) use of insulin; Z79.899 Other long term (current) drug therapy
CPT/HCPCS: 99285; 96374; 71045; 84484; 80053; 85025; 36415; 93005; J0360

== ENCOUNTER 2022-12-01 18:25 | Emergency (ER) | payer OTHER, MEDICARE ==
[~2022-12-01] VITALS: Ht 165.1 cm; Wt 67.1 kg
[2022-12-01 19:14] LABS: BASOPHILS % (AUTO) 0.6 % (0.0-5.0); EOSINOPHILS % (AUTO) 3.2 % (0.0-8.0); HEMATOCRIT 38.1 % (36-48); MEAN CORPUSCULAR HEMOGLOBIN 30.1 pg (27.0-33.0); MEAN CORPUSCULAR HGB CONC 33.9 g/dL (32.0-36.0); MONOCYTES % (AUTO) 5.6 % (3.0-13.0); NEUTROPHILS % (AUTO) 67.2 % (40.0-77.0); PLATELET COUNT (AUTO) 140 K/uL (130-400); RED BLOOD CELL COUNT(AUTO) 4.28 MIL/uL (4.00-5.50); RED CELL DISTRIBUTION WIDTH 12.5 % (11.0-15.5); WHITE BLOOD COUNT (AUTO) 7.2 K/uL (4.8-10.8)
[2022-12-01 19:17] LABS: CREATININE 0.9 mg/dL (0.5-1.5); POTASSIUM 3.8 mmol/L (3.5-5.1)
[2022-12-01 19:28] LABS: ALBUMIN 3.2 g/dL (3.5-5.0); MAGNESIUM 1.8 mg/dL (1.80-2.40)
[2022-12-01 20:17] LABS: APPEARANCE,URINE CLEAR (CLEAR); BILIRUBIN,URINE NEGATIVE (NEGATIVE); COLOR,URINE LIGHT-YELLOW (YELLOW); GLUCOSE, URINE (UA) NEGATIVE (NEGATIVE); KETONES,URINE NEGATIVE (NEGATIVE); LEUKOCYTE ESTERASE ,URINE 250 Leu/uL (NEGATIVE); NITRATE,URINE NEGATIVE (NEGATIVE); OCCULT BLOOD,URINE NEGATIVE (NEGATIVE); PH,URINE 6.5 (5.0-8.0); PROTEIN,URINE NEGATIVE (NEGATIVE); UROBILINOGEN,URINE 0.2 mg/dL (0.2-1.0)
[2022-12-01 20:37] LABS: RBC,URINE 0-1 /HPF (0-1); SQUAMOUS EPITHELIAL CELL,UR RARE /HPF (0-2)
[2022-12-01 23:46] VITALS: BP 137/60
== END 2022-12-01 23:54 | disposition home or self-care (01) ==
LOC: EDH 18:25
DX: I25.10 Atherosclerotic heart disease of native coronary artery without angina pectoris (principal); I10 Essential (primary) hypertension; E78.00 Pure hypercholesterolemia, unspecified; E11.9 Type 2 diabetes mellitus without complications; Z79.899 Other long term (current) drug therapy; Z90.710 Acquired absence of both cervix and uterus; Z90.49 Acquired absence of other specified parts of digestive tract
CPT/HCPCS: 36415; 71045; 80053; 81001; 82550; 83735; 83880; 84484; 85025; 85378; 87088; 93005

== ENCOUNTER 2022-12-25 22:11 | Emergency (ER) | payer OTHER, MEDICARE ==
[~2022-12-25] VITALS: Ht 165.1 cm; Wt 67.1 kg
[2022-12-25] MEDS ORDERED: ACETAMINOPHEN 500 MG TABLET ONE (23:21)
[2022-12-26] MEDS ORDERED: ONDANSETRON 4MG INJ IVP ONE
[2022-12-26] MEDS ORDERED: MORPHINE 2 MG SYG IVP ONE ×3 (01:00→04:30)
[2022-12-26 04:17] VITALS: BP 113/50
== END 2022-12-26 04:58 | disposition home or self-care (01) ==
LOC: EDH 22:11
DX: S42.401A Unspecified fracture of lower end of right humerus, initial encounter for closed fracture (principal); S00.81XA Abrasion of other part of head, initial encounter; W01.0XXA Fall on same level from slipping, tripping and stumbling without subsequent striking against object, initial encounter; Y93.89 Activity, other specified; Y92.89 Other specified places as the place of occurrence of the external cause; Y99.8 Other external cause status; I10 Essential (primary) hypertension; E11.9 Type 2 diabetes mellitus without complications; E78.00 Pure hypercholesterolemia, unspecified; Z79.82 Long term (current) use of aspirin; Z79.899 Other long term (current) drug therapy; Z90.49 Acquired absence of other specified parts of digestive tract; Z95.1 Presence of aortocoronary bypass graft; Z98.890 Other specified postprocedural states
CPT/HCPCS: 99285; 70450; 96374; 96375; 73090; 73060; 70486; 29105; 96376; J2405

== ENCOUNTER 2023-03-24 13:24 | Emergency (ER) | payer OTHER, MEDICARE ==
[~2023-03-24] VITALS: Ht 162.6 cm; Wt 65.8 kg
[~2023-03-24 13:24] MED LIST changes: -ROSU20TA31 PO; +ROSU20TA73 PO
[2023-03-24 13:57] LABS: BASOPHILS # (AUTO) 0.03 K/uL (0.00-0.20); BASOPHILS % (AUTO) 0.4 % (0.0-5.0); EOSINOPHILS # (AUTO) 0.27 K/uL (0.00-0.70); EOSINOPHILS % (AUTO) 3.5 % (0.0-8.0); HEMATOCRIT 37.3 % (36-48); IMMATURE GRANULOCYTE ABSOLUTE 0.02 K/uL (0-1); LYMPHOCYTES # (AUTO) 1.5 K/uL (1.0-4.8); LYMPHOCYTES % (AUTO) 18.7 % (21.0-51.0); MEAN CORPUSCULAR HEMOGLOBIN 29.3 pg (27.0-33.0); MEAN CORPUSCULAR VOLUME 86.1 fL (79-99); MONOCYTES # (AUTO) 0.4 K/uL (0.1-1.0); NEUTROPHILS # (AUTO) 5.6 K/uL (1.8-7.7); NEUTROPHILS % (AUTO) 72.1 % (40.0-77.0); PLATELET COUNT (AUTO) 152 K/uL (130-400); RED BLOOD CELL COUNT(AUTO) 4.33 MIL/uL (4.00-5.50); RED CELL DISTRIBUTION WIDTH 12.9 % (11.0-15.5); WHITE BLOOD COUNT (AUTO) 7.8 K/uL (4.8-10.8)
[2023-03-24 14:20] LABS: INR 0.98 (0.85-1.15); PROTHROMBIN TIME 11.4 SEC (9.6-11.6)
[2023-03-24 14:21] LABS: PARTIAL THROMBOPLASTIN TIME 27.9 SEC (26.3-35.5)
[2023-03-24 14:33] LABS: ALBUMIN 3.2 g/dL (3.5-5.0); BILIRUBIN,TOTAL 0.6 mg/dL (0.2-1.0); TOTAL PROTEIN, SERUM 6.1 g/dL (6.0-8.3)
[2023-03-24 14:37] LABS: MAGNESIUM 1.8 mg/dL (1.80-2.40)
[2023-03-24 15:09] VITALS: BP 102/50; PULSE 77; RESP 18; O2SAT 95
== END 2023-03-24 15:43 | disposition home or self-care (01) ==
LOC: EDH 13:24
DX: I20.9 Angina pectoris, unspecified (principal); I10 Essential (primary) hypertension; E11.9 Type 2 diabetes mellitus without complications; E78.00 Pure hypercholesterolemia, unspecified; Z79.82 Long term (current) use of aspirin; Z79.899 Other long term (current) drug therapy; Z90.49 Acquired absence of other specified parts of digestive tract; Z98.890 Other specified postprocedural states
CPT/HCPCS: 36415; 71045; 80053; 82550; 83735; 83880; 84484; 85025; 85610; 85730; 93005

== ENCOUNTER → 2023-07-13 | Outpatient (CLI) | payer OTHER, MEDICARE ==
[2023-07-13 11:36] LABS: BASOPHILS # (AUTO) 0.04 K/uL (0.00-0.20); BASOPHILS % (AUTO) 0.7 % (0.0-5.0); EOSINOPHILS % (AUTO) 5.4 % (0.0-8.0); HEMATOCRIT 41.9 % (36-48); IMMATURE GRANULOCYTE ABSOLUTE 0.01 K/uL (0-1); LYMPHOCYTES # (AUTO) 1.5 K/uL (1.0-4.8); LYMPHOCYTES % (AUTO) 26.5 % (21.0-51.0); MEAN CORPUSCULAR HEMOGLOBIN 29.5 pg (27.0-33.0); MEAN CORPUSCULAR HGB CONC 33.7 g/dL (32.0-36.0); MEAN CORPUSCULAR VOLUME 87.7 fL (79-99); MONOCYTES # (AUTO) 0.3 K/uL (0.1-1.0); MONOCYTES % (AUTO) 5.2 % (3.0-13.0); NEUTROPHILS # (AUTO) 3.4 K/uL (1.8-7.7); PLATELET COUNT (AUTO) 168 K/uL (130-400); RED BLOOD CELL COUNT(AUTO) 4.78 MIL/uL (4.00-5.50); RED CELL DISTRIBUTION WIDTH 13.1 % (11.0-15.5); WHITE BLOOD COUNT (AUTO) 5.5 K/uL (4.8-10.8)
[2023-07-13 11:46] LABS: ALBUMIN 3.4 g/dL (3.5-5.0); BILIRUBIN,TOTAL 0.9 mg/dL (0.2-1.0); CREATININE 0.9 mg/dL (0.5-1.5); POTASSIUM 3.4 mmol/L (3.5-5.1); TOTAL PROTEIN, SERUM 6.6 g/dL (6.0-8.3)
[2023-07-13 12:14] LABS: HIV 1&2 ANTIBODY Non-Reactive (Negative); HIV-1 p24 Antigen Non-Reactive (Negative)
[2023-07-13 14:59] LABS: RAPID PLASMA REAGIN NONREACTIVE (NONREACTIVE)
== END | disposition home or self-care (01) ==
LOC: LAB 10:31
PROVIDERS: ATTEND Internal Medicine Cardiovascular Disease
DX: I95.1 Orthostatic hypotension (principal); R42 Dizziness and giddiness; R63.4 Abnormal weight loss; I45.10 Unspecified right bundle-branch block
CPT/HCPCS: 36415; 80053; 82383; 82533; 85025; 86592; 86701; 87390

== ENCOUNTER 2023-09-28 18:03 | Emergency (ER) | payer OTHER, MEDICARE ==
[~2023-09-28] VITALS: Ht 162.6 cm; Wt 60.8 kg
[2023-09-28] MEDS ORDERED: METO-409 PO (18:24)
[2023-09-28] MEDS ORDERED: BUSP7.5T7 PO (18:24)
[2023-09-28] MEDS ORDERED: LOSA25TA41 PO (18:24)
[2023-09-28] MEDS ORDERED: ASPI-1443 PO (18:24)
[2023-09-28] MEDS ORDERED: ALBU18HF7 IH (18:24)
[2023-09-28] MEDS ORDERED: DAPA5TAB PO (18:24)
[2023-09-28 18:31] LABS: BASOPHILS # (AUTO) 0.04 K/uL (0.00-0.20); BASOPHILS % (AUTO) 0.5 % (0.0-5.0); EOSINOPHILS # (AUTO) 0.17 K/uL (0.00-0.70); EOSINOPHILS % (AUTO) 2.2 % (0.0-8.0); IMMATURE GRANULOCYTE ABSOLUTE 0.03 K/uL (0-1); LYMPHOCYTES # (AUTO) 1.1 K/uL (1.0-4.8); LYMPHOCYTES % (AUTO) 14.1 % (21.0-51.0); MEAN CORPUSCULAR HGB CONC 34.6 g/dL (32.0-36.0); MEAN CORPUSCULAR VOLUME 86.7 fL (79-99); MONOCYTES # (AUTO) 0.4 K/uL (0.1-1.0); NEUTROPHILS % (AUTO) 77.8 % (40.0-77.0); PLATELET COUNT (AUTO) 122 K/uL (130-400); RED CELL DISTRIBUTION WIDTH 12.9 % (11.0-15.5); WHITE BLOOD COUNT (AUTO) 7.7 K/uL (4.8-10.8)
[2023-09-28 18:44] LABS: ALBUMIN 3.3 g/dL (3.5-5.0); BILIRUBIN,TOTAL 0.7 mg/dL (0.2-1.0); TOTAL PROTEIN, SERUM 6.4 g/dL (6.0-8.3)
[2023-09-28] MEDS: MECLIZINE HCL 25 MG TABLET PO ONE (18:53)
[2023-09-28] MEDS: METOCLOPRAMIDE 10 MG/2 ML VIAL IVP ONE (18:54)
[2023-09-28] MEDS: POTASSIUM BICARB/CIT AC 25 MEQ TABLET.EFF PO ONE (18:54)
[2023-09-28 19:20] LABS: APPEARANCE,URINE CLEAR (CLEAR); BILIRUBIN,URINE NEGATIVE (NEGATIVE); COLOR,URINE COLORLESS (YELLOW); GLUCOSE, URINE (UA) >=1000 mg/dL (NEGATIVE); KETONES,URINE NEGATIVE (NEGATIVE); LEUKOCYTE ESTERASE ,URINE NEGATIVE Leu/uL (NEGATIVE); NITRATE,URINE NEGATIVE (NEGATIVE); OCCULT BLOOD,URINE NEGATIVE (NEGATIVE); PROTEIN,URINE NEGATIVE (NEGATIVE); UROBILINOGEN,URINE 0.2 mg/dL (0.2-1.0)
[2023-09-28 19:23] LABS: ADD UA MICROSCOPIC YES
[2023-09-28 19:26] LABS: RBC,URINE 0-1 /HPF (0-1); SQUAMOUS EPITHELIAL CELL,UR RARE /HPF (0-2); WBC,URINE 0-1 /HPF (0-1)
[2023-09-28 19:30] LABS: THYROID STIMULATING HORMONE 3.06 uIU/mL (0.36-3.74)
[2023-09-28 21:43] VITALS: BP 143/65; PULSE 82; RESP 17; O2SAT 98
[2023-09-28] MEDS ORDERED: MECL-262 PO (21:46)
== END 2023-09-28 22:02 | disposition home or self-care (01) ==
LOC: EDH 18:03
DX: R42 Dizziness and giddiness (principal); R10.9 Unspecified abdominal pain; R11.0 Nausea; E11.9 Type 2 diabetes mellitus without complications; E78.00 Pure hypercholesterolemia, unspecified; I10 Essential (primary) hypertension; Z79.4 Long term (current) use of insulin; Z79.82 Long term (current) use of aspirin; Z79.84 Long term (current) use of oral hypoglycemic drugs; Z79.899 Other long term (current) drug therapy; Z90.49 Acquired absence of other specified parts of digestive tract; Z95.1 Presence of aortocoronary bypass graft
CPT/HCPCS: 99284; 96374; 84443; 83735; 84484; 80053; 83690; 85025; 81001; 36415; 93005; J2765

== ENCOUNTER → 2023-11-06 | Outpatient (CLI) | payer OTHER, MEDICARE ==
[~2023-11-06] MED LIST changes: +ALBU18HF7 IH; +ASPI-1443 PO; +BUSP7.5T7 PO; +DAPA5TAB PO; +LOSA25TA41 PO; +MECL-262 PO; +METO-409 PO
[2023-11-06 16:34] LABS: CREATININE 0.7 mg/dL (0.5-1.0)
[2023-11-06 16:48] LABS: POTASSIUM 2.8 mmol/L (3.5-5.1)
== END | disposition home or self-care (01) ==
LOC: LAB 11:49
PROVIDERS: ATTEND Internal Medicine Cardiovascular Disease
DX: I95.1 Orthostatic hypotension (principal)
CPT/HCPCS: 36415; 80048

== ENCOUNTER → 2023-11-09 | Outpatient (CLI) | payer OTHER, MEDICARE ==
[2023-11-09 13:12] LABS: CREATININE 0.8 mg/dL (0.5-1.0)
[2023-11-09 13:17] LABS: POTASSIUM 2.9 mmol/L (3.5-5.1)
== END | disposition home or self-care (01) ==
LOC: LAB 10:01
PROVIDERS: ATTEND Internal Medicine Cardiovascular Disease
DX: I95.1 Orthostatic hypotension (principal)
CPT/HCPCS: 36415; 80048

== ENCOUNTER → 2023-11-13 | Outpatient (CLI) | payer OTHER, MEDICARE ==
[2023-11-13 12:38] LABS: CREATININE 0.8 mg/dL (0.5-1.0); POTASSIUM 3.1 mmol/L (3.5-5.1)
== END | disposition home or self-care (01) ==
LOC: LAB 10:10
PROVIDERS: ATTEND Internal Medicine Cardiovascular Disease
DX: I95.1 Orthostatic hypotension (principal)
CPT/HCPCS: 36415; 80048

== ENCOUNTER → 2023-11-19 | Outpatient (CLI) | payer OTHER, MEDICARE ==
[2023-11-19 12:32] LABS: CREATININE 0.8 mg/dL (0.5-1.0); POTASSIUM 3.8 mmol/L (3.5-5.1)
== END | disposition home or self-care (01) ==
LOC: LAB 10:52
PROVIDERS: ATTEND Internal Medicine Cardiovascular Disease
DX: I25.10 Atherosclerotic heart disease of native coronary artery without angina pectoris (principal); I10 Essential (primary) hypertension
CPT/HCPCS: 36415; 80048

== ENCOUNTER → 2024-01-14 | Outpatient (CLI) | payer OTHER, MEDICARE | END | disposition home or self-care (01) | LOC: RAH 12:11 | PROVIDERS: ATTEND Internal Medicine | DX: J44.9 Chronic obstructive pulmonary disease, unspecified (principal); Z98.890 Other specified postprocedural states | CPT/HCPCS: 71047 ==

== ENCOUNTER 2024-02-05 19:09 | Emergency (ER) | payer OTHER, MEDICARE ==
[~2024-02-05] VITALS: Ht 165.1 cm; Wt 59.0 kg
[2024-02-05 19:55] LABS: BASOPHILS # (AUTO) 0.02 K/uL (0.00-0.20); BASOPHILS % (AUTO) 0.3 % (0.0-5.0); EOSINOPHILS # (AUTO) 0.13 K/uL (0.00-0.70); EOSINOPHILS % (AUTO) 1.8 % (0.0-8.0); HEMATOCRIT 39.8 % (36-48); IMMATURE GRANULOCYTE ABSOLUTE 0.02 K/uL (0-1); LYMPHOCYTES # (AUTO) 1.5 K/uL (1.0-4.8); LYMPHOCYTES % (AUTO) 20.6 % (21.0-51.0); MEAN CORPUSCULAR HEMOGLOBIN 28.9 pg (27.0-33.0); MEAN CORPUSCULAR HGB CONC 33.4 g/dL (32.0-36.0); MEAN CORPUSCULAR VOLUME 86.5 fL (79-99); MONOCYTES # (AUTO) 0.4 K/uL (0.1-1.0); MONOCYTES % (AUTO) 5.2 % (3.0-13.0); NEUTROPHILS # (AUTO) 5.1 K/uL (1.8-7.7); NEUTROPHILS % (AUTO) 71.8 % (40.0-77.0); PLATELET COUNT (AUTO) 156 K/uL (130-400); RED CELL DISTRIBUTION WIDTH 13.3 % (11.0-15.5); WHITE BLOOD COUNT (AUTO) 7.1 K/uL (4.8-10.8)
[2024-02-05 20:05] LABS: CREATININE 0.9 mg/dL (0.5-1.0); MAGNESIUM 1.5 mg/dL (1.80-2.40)
[2024-02-05 20:11] LABS: POTASSIUM 2.8 mmol/L (3.5-5.1)
[2024-02-05] MEDS: POTASSIUM CHLORIDE 10MEQ/100ML 100 ML IV ONE (20:44)
[2024-02-05] MEDS: POTASSIUM BICARB/CIT AC 25 MEQ TABLET.EFF PO ONE (20:44)
[2024-02-05] MEDS: 0.9%NACL 1000ML 1,000 ML IV ONE (20:45)
[2024-02-05] MEDS: MAGNESIUM 2GM PREMIX 50ML 50 ML IV ONE (20:45)
[2024-02-05 21:46] LABS: ADD UA MICROSCOPIC YES; APPEARANCE,URINE CLEAR (CLEAR); BILIRUBIN,URINE NEGATIVE (NEGATIVE); COLOR,URINE COLORLESS (YELLOW); GLUCOSE, URINE (UA) >=1000 mg/dL (NEGATIVE); KETONES,URINE NEGATIVE (NEGATIVE); LEUKOCYTE ESTERASE ,URINE NEGATIVE Leu/uL (NEGATIVE); NITRATE,URINE NEGATIVE (NEGATIVE); OCCULT BLOOD,URINE NEGATIVE (NEGATIVE); PH,URINE 6.5 (5.0-8.0); PROTEIN,URINE NEGATIVE (NEGATIVE); UROBILINOGEN,URINE 0.2 mg/dL (0.2-1.0)
[2024-02-05 21:48] LABS: RBC,URINE 0-1 /HPF (0-1); SQUAMOUS EPITHELIAL CELL,UR RARE /HPF (0-2); WBC,URINE 0-1 /HPF (0-1)
[2024-02-05 23:58] VITALS: BP 136/63; PULSE 71; RESP 18; O2SAT 98
== END 2024-02-05 23:59 | disposition home or self-care (01) ==
LOC: EDH 19:09
DX: E87.6 Hypokalemia (principal); E83.42 Hypomagnesemia; E11.9 Type 2 diabetes mellitus without complications; E78.00 Pure hypercholesterolemia, unspecified; I10 Essential (primary) hypertension; Z79.4 Long term (current) use of insulin; Z79.82 Long term (current) use of aspirin; Z79.84 Long term (current) use of oral hypoglycemic drugs; Z79.899 Other long term (current) drug therapy; Z90.49 Acquired absence of other specified parts of digestive tract; Z95.1 Presence of aortocoronary bypass graft
CPT/HCPCS: 99285; 96365; 96366; 83735; 80048; 85025; 81001; 36415; 84132; J3475; J3480

== ENCOUNTER → 2024-02-05 | Outpatient (CLI) | payer OTHER, MEDICARE ==
[2024-02-05 16:40] LABS: CREATININE 0.8 mg/dL (0.5-1.0)
[2024-02-05 16:47] LABS: POTASSIUM 2.8 mmol/L (3.5-5.1)
== END | disposition home or self-care (01) ==
LOC: LAB 12:41
PROVIDERS: ATTEND Internal Medicine Cardiovascular Disease
DX: I25.10 Atherosclerotic heart disease of native coronary artery without angina pectoris (principal)
CPT/HCPCS: 36415; 80048

== ENCOUNTER → 2024-02-20 | Outpatient (CLI) | payer OTHER, MEDICARE ==
[2024-02-20 16:31] LABS: CREATININE 0.8 mg/dL (0.5-1.0); MAGNESIUM 1.9 mg/dL (1.80-2.40); POTASSIUM 3.1 mmol/L (3.5-5.1)
== END | disposition home or self-care (01) ==
LOC: LAB 14:34
PROVIDERS: ATTEND Internal Medicine Cardiovascular Disease
DX: I25.119 Atherosclerotic heart disease of native coronary artery with unspecified angina pectoris (principal)
CPT/HCPCS: 36415; 80048; 83735

== ENCOUNTER → 2024-02-27 | Outpatient (CLI) | payer OTHER, MEDICARE ==
[2024-02-27 12:18] LABS: CREATININE 0.7 mg/dL (0.5-1.0); POTASSIUM 3.1 mmol/L (3.5-5.1)
== END | disposition home or self-care (01) ==
LOC: LAB 09:36
PROVIDERS: ATTEND Internal Medicine Cardiovascular Disease
DX: I10 Essential (primary) hypertension (principal)
CPT/HCPCS: 36415; 80048; 83735

== ENCOUNTER → 2024-03-07 | Outpatient (CLI) | payer OTHER, MEDICARE ==
[2024-03-07 12:45] LABS: CREATININE 0.8 mg/dL (0.5-1.0); POTASSIUM 4.3 mmol/L (3.5-5.1)
== END | disposition home or self-care (01) ==
LOC: LAB 10:35
PROVIDERS: ATTEND Internal Medicine Cardiovascular Disease
DX: E87.6 Hypokalemia (principal)
CPT/HCPCS: 36415; 80048; 83735

== ENCOUNTER → 2024-03-26 | Outpatient (CLI) | payer OTHER, MEDICARE ==
[2024-03-26 12:42] LABS: CREATININE 0.9 mg/dL (0.5-1.0); MAGNESIUM 2.1 mg/dL (1.80-2.40); POTASSIUM 4.4 mmol/L (3.5-5.1)
== END | disposition home or self-care (01) ==
LOC: LAB 10:50
PROVIDERS: ATTEND Internal Medicine Cardiovascular Disease
DX: E87.6 Hypokalemia (principal); I95.1 Orthostatic hypotension
CPT/HCPCS: 36415; 80048; 83735

== ENCOUNTER 2024-04-09 11:14 | Emergency (ER) | payer OTHER, MEDICARE ==
[~2024-04-09] VITALS: Ht 152.4 cm; Wt 61.2 kg
[2024-04-09 11:30] VITALS: O2SAT 99
[2024-04-09 11:33] LABS: BASOPHILS # (AUTO) 0.05 K/uL (0.00-0.20); BASOPHILS % (AUTO) 0.6 % (0.0-5.0); EOSINOPHILS # (AUTO) 0.32 K/uL (0.00-0.70); EOSINOPHILS % (AUTO) 4.1 % (0.0-8.0); HEMATOCRIT 39.6 % (36-48); IMMATURE GRANULOCYTE ABSOLUTE 0.02 K/uL (0-1); LYMPHOCYTES # (AUTO) 2.4 K/uL (1.0-4.8); LYMPHOCYTES % (AUTO) 30.1 % (21.0-51.0); MEAN CORPUSCULAR HEMOGLOBIN 28.9 pg (27.0-33.0); MEAN CORPUSCULAR HGB CONC 33.6 g/dL (32.0-36.0); MEAN CORPUSCULAR VOLUME 85.9 fL (79-99); MONOCYTES # (AUTO) 0.4 K/uL (0.1-1.0); MONOCYTES % (AUTO) 4.9 % (3.0-13.0); NEUTROPHILS # (AUTO) 4.7 K/uL (1.8-7.7); PLATELET COUNT (AUTO) 143 K/uL (130-400); RED BLOOD CELL COUNT(AUTO) 4.61 MIL/uL (4.00-5.50); RED CELL DISTRIBUTION WIDTH 13.9 % (11.0-15.5); WHITE BLOOD COUNT (AUTO) 7.8 K/uL (4.8-10.8)
[2024-04-09] MEDS: ASPIRIN 81MG CHEW TAB PO ONE (11:41)
[2024-04-09 11:42] LABS: CREATININE 0.9 mg/dL (0.5-1.0); POTASSIUM 4.9 mmol/L (3.5-5.1)
[2024-04-09 11:46] LABS: ALBUMIN 3.3 g/dL (3.5-5.0); BILIRUBIN,TOTAL 0.7 mg/dL (0.2-1.0); TOTAL PROTEIN, SERUM 6.4 g/dL (6.0-8.3)
[2024-04-09 13:21] VITALS: PULSE 75; RESP 16
[2024-04-09 14:45] VITALS: BP 173/67
== END 2024-04-09 15:24 | disposition home or self-care (01) ==
LOC: EDH 11:14
DX: R07.89 Other chest pain (principal); R06.02 Shortness of breath; E11.9 Type 2 diabetes mellitus without complications; E78.00 Pure hypercholesterolemia, unspecified; I10 Essential (primary) hypertension; I25.10 Atherosclerotic heart disease of native coronary artery without angina pectoris; Z79.4 Long term (current) use of insulin; Z79.82 Long term (current) use of aspirin; Z79.899 Other long term (current) drug therapy; Z98.890 Other specified postprocedural states
CPT/HCPCS: 36415; 71045; 80053; 84484; 85025; 93005

== ENCOUNTER 2025-01-13 01:10 | Emergency (ER) | payer OTHER, MEDICARE ==
[~2025-01-13] VITALS: Ht 165.1 cm; Wt 65.8 kg
[~2025-01-13 01:10] MED LIST changes: -ROSU20TA73 PO; +ROSU20TA98 PO
--- NOTE | 2025-01-13 01:47 | ERN ---
General Chief Complaint: Hypertension Stated Complaint: C/O HIGH B/P WITH NAUSEA, AND HEADACHE Time Seen by MD: 01:17 History of Present Illness Initial Comments Patient is a 79-year-old female with a past medical history of hypertension diabetes hypercholesterolemia cardiac disease and vertigo. She comes in because she had a headache and measured her blood pressure and noted it was very high. She took a losartan and it did not help with her symptoms. Upon arrival her systolic blood pressure was over 200 and a diastolic pressure greater than 90. In addition patient reports some nausea and stomach pain. No emesis no change in bowel habits no change in urination. No shortness of breath no chest pain Timing/Duration: 1-3 hours Allergies: Coded Allergies: No Known Drug Allergies (Unverified Allergy, Unknown, 12/18/17) Home Meds Active Scripts Meclizine HCl (Antivert) 25 Mg Tab.chew, 25 MG PO TIDP PRN for VERTIGO, #30 TAB.CHEW Prov:VAN SANCHEZ MD 09/28/23 Reported Medications Albuterol Sulfate (Ventolin Hfa) 90 Mcg Hfa.aer.ad, 18 GM IH Q4HPRN PRN for LIZA RTNESS OF BREATH, INHALER 09/28/23 Buspirone HCl (Buspirone HCl) 7.5 Mg Tablet, 7.5 MG PO BID PRN for ANXIE TY/AGITATION, TAB 09/28/23 Dapagliflozin Propanediol (Farxiga) 5 Mg Tablet, 5 MG PO DAILY, TAB 09/28/23 Metoprolol Succinate (Metoprolol Succinate) 100 Mg Tab.er.24h, 100 MG PO DAILY, TAB 09/28/23 Losartan Potassium (Losartan Potassium) 25 Mg Tablet, 12.5 MG PO TID PRN for IF SBP GREATER THAN, TAB 09/28/23 Aspirin (Aspirin EC) 81 Mg Tablet.dr, 81 MG PO DAILY, TAB 09/28/23 Insulin Detemir (Levemir) 100 Unit/1 Ml Vial, 13 UNIT SQ DAILY, VIAL 08/15/22 Aspirin (Aspirin) 325 Mg Tablet, 325 MG PO DAILY, TAB 08/15/22 Pantoprazole Sodium (Pantoprazole Sodium) 40 Mg Tablet.dr, 40 MG PO HS, TAB 08/15/22 Acetaminophen with Codeine (Acetaminophen-Cod #3 Tablet) 1 Each Tablet, 1 EACH PO Q6HPRN PRN for PAIN, TAB 08/15/22 Rosuvastatin Calcium (Rosuvastatin Calcium) 20 Mg Tablet, 20 MG PO HS, TAB 12/09/21 Isosorbide Mononitrate (Isosorbide Mononitrate ER) 60 Mg Tab.er.24h, 60 MG PO BID, TAB 12/09/21 Dulaglutide (Trulicity) 1.5 Mg/0.5 Ml Pen.injctr, 1.5 MG SQ QWEEK on fridays01/16/18 Past Medical History Past Medical History: Diabetes-Type II, Heart Disease, Hypertension Medical History Other: vertigo Past Surgical History: Cholecystectomy, Other Surgical History Other: back, knee Family History Family History: Negative Social History Social History: Negative, Lives with family Female( History) History: Not Applicable Constitutional: (+) chills EENTM: (-) eye pain, (-) blurred vision, (-) tearing, (-) double vision, (-) ear pain, (-) ear discharge, (-) nose pain, (-) nose congestion, (-) throat pain, (-) Throat swelling, (-) mouth pain, (-) tooth pain, (-) mouth swelling, (-) other documentation Respiratory: (-) cough, (-) orthopnea, (-) short of breath, (-) stridor, (-) wheezing, (-) other documentation Cardiovascular: (-) chest pain, (-) edema, (-) palpitations, (-) syncope, (-) dyspnea on exertion, (-) other documentation Gastrointestinal/Abdominal: (+) nausea Neuro: (+) headache Physical Exam General Appearance: (+) mild distress Orientation: (+) alert, (+) oriented x 3 Head/Face Trauma: No Eye: bilateral eye normal inspection, bilateral eye PERRL, bilateral eye EOMI Ear, Nose, Throat: (+) hearing grossly normal, (+) normal ENT inspection Neck: (+) normal inspection, (+) supple, (+) full range of motion Respiratory: (+) chest non-tender, (+) lungs clear, (+) well ventilated Heart: (+) regular, (+) no gallop Vascular: (+) no edema, (+) normal peripheral pulse Gastrointestinal: (+) soft, (+) non-tender, (+) bowel sound present Results Laboratory and Microbiology Lab and Micro Result Laboratory Tests Test 01/13/25 01:45 01/13/25 03:56 01/13/25 04:55 White Blood Count 6.1 K/uL (4.8-10.8) Red Blood Count 4.30 MIL/uL (4.00-5.50) Hemoglobin 13.1 g/dL (12.0-16.0) Hematocrit 37.1 % (36-48) Mean Corpuscular Volume 86.3 fL (79-99) Mean Corpuscular Hemoglobin 30.5 pg (27.0-33.0) Mean Corpuscular Hemoglobin Concent 35.3 g/dL (32.0-36.0) Red Cell Distribution Width 12.9 % (11.0-15.5) Platelet Count 133 K/uL (130-400) Mean Platelet Volume 11.9 fL (7.5-10.5) H Immature Granulocyte % (Auto) 0.2 % (0-1) Neutrophils (%) (Auto) 62.8 % (40.0-77.0) Lymphocytes (%) (Auto) 25.4 % (21.0-51.0) Monocytes (%) (Auto) 7.1 % (3.0-13.0) Eosinophils (%) (Auto) 3.8 % (0.0-8.0) Basophils (%) (Auto) 0.7 % (0.0-5.0) Neutrophils # (Auto) 3.8 K/uL (1.8-7.7) Lymphocytes # (Auto) 1.5 K/uL (1.0-4.8) Monocytes # (Auto) 0.4 K/uL (0.1-1.0) Eosinophils # (Auto) 0.23 K/uL (0.00-0.70) Basophils # (Auto) 0.04 K/uL (0.00-0.20) Absolute Immature Granulocyte (auto 0.01 K/uL (0-1) Nucleated Red Blood Cells 0.0 % (0.0-0.19) Sodium Level 140 mmol/L (136-145) Potassium Level 2.6 mmol/L (3.5-5.1) *L Chloride Level 103 mmol/L (101-111) Carbon Dioxide Level 30 mmol/L (21-32) Blood Urea Nitrogen 11 mg/dL (7-18) Creatinine 0.8 mg/dL (0.5-1.0) Glomerular Filtration Rate Calc 75 mL/min (>90) Random Glucose 116 mg/dL (70-105) H Total Calcium 7.8 mg/dL (8.5-10.1) L Magnesium Level 1.40 mg/dL (1.80-2.40) L Troponin I High Sensitivity 18 ng/L (4-50) 22 ng/L (4-50) B-Type Natriuretic Peptide 188 pg/mL (0-100) H Urine Color COLORLESS (YELLOW) Urine Appearance CLEAR (CLEAR) Urine pH 7.5 (5.0-8.0) Urine Specific Lambert 1.003 (1.001-1.031) Urine Protein NEGATIVE mg/dL (NEGATIVE) Urine Glucose (UA) NEGATIVE mg/dL (NEGATIVE) Urine Ketones NEGATIVE mg/dL (NEGATIVE) Urine Occult Blood NEGATIVE (NEGATIVE) Urine Nitrate NEGATIVE (NEGATIVE) Urine Bilirubin NEGATIVE mg/dL (NEGATIVE) Urine Urobilinogen 0.2 mg/dL (0.2-1.0) Urine Leukocyte Esterase 25 Allyson/uL (NEGATIVE) H Urine RBC None /HPF (0-1) Urine WBC 0-1 /HPF (0-1) Urine Bacteria None /HPF (None Seen) MDM I will start by giving the patient IV hydralazine. I also need to rule out an acute [place] as a cause of her sudden onset of hypertension. Cardiac enzymes and BNP were also ordered. In addition I will get a CBC and a basic chemistry p bronwyn. Patient's blood pressure returned to normal with the hydralazine. Patient's CBC is normal. Patient's chemistry panel showed hypokalemia and hypomagnesemia I am replacing them. Patient's urine came back with a small amount of leukocyte esterase activity in it I will give the patient three days of Keflex. She is ready to go home. I am concerned about her low magnesium and low potassium I recommend she see her tito primary care physician about this she may need to change some of the medication she is on. ED Course Orders Procedure Category Date Status Time Hydralazine 20mg Inj PHA 01/13/25 Complete (Apresoline 20mg In 01:30 Ct Head/Brain W/O CT 01/13/25 Taken Contrast 01:29 12 Lead Ekg Tracing- EKG 01/13/25 Complete Technical 01:29 Troponin I High LAB 01/13/25 Complete Sensitivity 01:29 Ketorolac PHA 01/13/25 Complete Tromethamine 30mg/Ml 01:30 12 Lead Ekg Tracing- EKG 01/13/25 Complete Technical 01:39 B-Type Natriuretic LAB 01/13/25 Complete Peptide 01:48 Basic Metabolic Panel LAB 01/13/25 Complete 01:48 Cbc With Differential LAB 01/13/25 Complete 01:48 Urinalysis Profile LAB 01/13/25 Complete 01:48 Lactated Ringers PHA 01/13/25 Complete 1000ml (Lactated 02:56 12 Lead Ekg Tracing- EKG 01/13/25 Logged Technical 02:56 Potassium Bicarb/Cit PHA 01/13/25 Complete Ac 25meq (K-Lyte Ta 03:00 Magnesium LAB 01/13/25 Complete 02:59 Magnesium 2gm Premix PHA 01/13/25 In Process 50ml (Magnesium 2gm 03:00 Troponin I High LAB 01/13/25 Complete Sensitivity 03:38 Cyclobenzaprine Hcl PHA 01/13/25 Complete (Cyclobenzaprine Hcl 04:00 Current Medications Medications (Trade) Dose Ordered Sig/Adi Route PRN Reason Start Time Stop Time Status Last Admin Dose Admin Cyclobenzaprine HCl (Cyclobenzaprine HCl) 10 mg ONCE ONCE PO 01/13/25 04:00 01/13/25 04:02 DC 01/13/25 03:59 Hydralazine HCl (APRESOLine 20MG INJ) 20 mg ONCE ONCE IV 01/13/25 01:30 01/13/25 01:37 DC 01/13/25 01:48 Ketorolac Tromethamine (toRADol) 30 mg ONCE ONCE IVP 01/13/25 01:30 01/13/25 01:38 DC 01/13/25 01:48 Lactated Ringer's (Lactated Ringers 1000ml) 1,000 ml BOLUS STAT IV 01/13/25 02:56 01/13/25 02:59 DC 01/13/25 03:26 Magnesium Sulfate 50 ml @ 0 mls/hr PROTOCOL IV 01/13/25 03:00 02/12/25 02:59 01/13/25 03:59 Potassium Bicarbonate (K-Lyte Tablet Eff 25 Meq Tablet.eff) 50 meq ONCE ONCE PO 01/13/25 03:00 01/13/25 03:01 DC 01/13/25 03:26 Vital Signs Date Time Temp Pulse Resp B/P (MAP) Pulse Ox O2 Delivery O2 Flow Rate FiO2 01/13/25 04:15 97.7 85 15 142/66 95 Room Air* 0 21 01/13/25 03:15 97.5 81 19 115/58 95 Room Air* 0 21 01/13/25 02:15 97.9 77 15 117/51 95 Room Air* 0 21 01/13/25 02:00 97.7 70 17 195/75 95 Room Air* 0 21 01/13/25 01:30 97.9 68 15 205/78 95 Room Air* 0 21 01/13/25 01:12 97.7 62 20 217/94 97 Room Air DX & DISP Disposition: Discharge Departure Impression: Primary Impression: Hypertension Additional Impressions: Hypokalemia, Hypomagnesemia Condition: Stable Referrals: JEANIE CAMPBELL MD (PCP) Your blood pressure has returned to normal. During our workup I noticed you have low magnesium and low potassium in your blood stream. We have replaced these. I recommend you talk to your primary care physician about these electrolyte abnormalities. They most likely are side effect of a medication that you are taking right now. For example pantoprazole can lead to low magnesium levels. ANAHY RICHARDS MD Jan 13, 2025 01:47
[2025-01-13] MEDS: hydrALAZine 20MG/ML VIAL IV ONE (01:48)
[2025-01-13] MEDS: ketOROlac 30MG VIAL (30MG/ML) IVP ONE (01:48)
--- NOTE | 2025-01-13 01:52 | EKG ---
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
[2025-01-13 01:54] LABS: BASOPHILS # (AUTO) 0.04 K/uL (0.00-0.20); BASOPHILS % (AUTO) 0.7 % (0.0-5.0); EOSINOPHILS # (AUTO) 0.23 K/uL (0.00-0.70); EOSINOPHILS % (AUTO) 3.8 % (0.0-8.0); HEMATOCRIT 37.1 % (36-48); IMMATURE GRANULOCYTE ABSOLUTE 0.01 K/uL (0-1); LYMPHOCYTES # (AUTO) 1.5 K/uL (1.0-4.8); LYMPHOCYTES % (AUTO) 25.4 % (21.0-51.0); MEAN CORPUSCULAR HEMOGLOBIN 30.5 pg (27.0-33.0); MEAN CORPUSCULAR HGB CONC 35.3 g/dL (32.0-36.0); MEAN CORPUSCULAR VOLUME 86.3 fL (79-99); MONOCYTES # (AUTO) 0.4 K/uL (0.1-1.0); MONOCYTES % (AUTO) 7.1 % (3.0-13.0); NEUTROPHILS # (AUTO) 3.8 K/uL (1.8-7.7); NEUTROPHILS % (AUTO) 62.8 % (40.0-77.0); PLATELET COUNT (AUTO) 133 K/uL (130-400); RED CELL DISTRIBUTION WIDTH 12.9 % (11.0-15.5); WHITE BLOOD COUNT (AUTO) 6.1 K/uL (4.8-10.8)
[2025-01-13 02:07] LABS: CREATININE 0.8 mg/dL (0.5-1.0)
[2025-01-13 02:08] LABS: POTASSIUM 2.6 mmol/L (3.5-5.1)
[2025-01-13 02:15] LABS: B-TYPE NATRIURETIC PEPTIDE 188 pg/mL (0-100)
--- NOTE | 2025-01-13 02:59 | EKG ---
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
[2025-01-13] MEDS: PoTASSium BIcarbonate/CIT AC 25 MEQ TABLET.EFF PO ONE (03:26)
[2025-01-13] MEDS: LACTATED RINGERS 1000ML IV STA (03:26)
[2025-01-13] MEDS: MAGNESIUM 2GM PREMIX 50ML 50 ML IV SCH (03:59)
[2025-01-13] MEDS: CYCLOBENZAPRINE HCL 10 MG TABLET PO ONE (03:59)
[2025-01-13 05:29] LABS: APPEARANCE,URINE CLEAR (CLEAR); BILIRUBIN,URINE NEGATIVE (NEGATIVE); COLOR,URINE COLORLESS (YELLOW); GLUCOSE, URINE (UA) NEGATIVE (NEGATIVE); KETONES,URINE NEGATIVE (NEGATIVE); LEUKOCYTE ESTERASE ,URINE 25 Leu/uL (NEGATIVE); NITRATE,URINE NEGATIVE (NEGATIVE); OCCULT BLOOD,URINE NEGATIVE (NEGATIVE); PH,URINE 7.5 (5.0-8.0); PROTEIN,URINE NEGATIVE (NEGATIVE); UROBILINOGEN,URINE 0.2 mg/dL (0.2-1.0)
[2025-01-13 05:33] LABS: ADD UA MICROSCOPIC YES; WBC,URINE 0-1 /HPF (0-1)
[2025-01-13] MEDS ORDERED: CEPH500B PO (05:57)
[2025-01-13 06:03] VITALS: BP 151/79; PULSE 87; RESP 17; TEMP 97.8; O2SAT 99
--- NOTE | 2025-01-13 09:02 | HMCIMG ---
Exam: NONCONTRAST CT BRAIN REASON: MARCUS/ Htn. COMPARISON: 12/25/2022 TECHNIQUE: Images are obtained from vertex to the skull base. The exam was performed without IV contrast. FINDINGS: There are generous ventricles and sulci. There is decreased attenuation in the deep central white matter. These findings are consistent with atrophy. There are no acute appearing focal parenchymal lesions. There is no evidence of mass, intracranial hemorrhage or acute stroke. Posterior fossa and brainstem structures appear unremarkable. There are no abnormal fluid collections. Extra cranial soft tissues appear unremarkable as well. IMPRESSION: 1. Atrophy, no acute finding. CT was performed with one or more following dose reduction techniques: automated exposure control, adjustment of the mA and kv according to patient's size, or use of a iterative reconstruction technique.
== END 2025-01-13 06:21 | disposition home or self-care (01) ==
LOC: EDH 01:10
DX: I10 Essential (primary) hypertension (principal); E87.6 Hypokalemia; E83.42 Hypomagnesemia; E11.9 Type 2 diabetes mellitus without complications; E78.00 Pure hypercholesterolemia, unspecified; Z79.4 Long term (current) use of insulin; Z79.82 Long term (current) use of aspirin; Z79.84 Long term (current) use of oral hypoglycemic drugs; Z79.899 Other long term (current) drug therapy; Z90.49 Acquired absence of other specified parts of digestive tract
CPT/HCPCS: 99285; 96374; 70450; 96375; 83735; 84484 ×2; 80048; 83880; 85025; 81001; 36415; 93005 ×2; J1885; J3475; J0360

== ENCOUNTER → 2025-02-10 | Outpatient (CLI) | payer MEDICARE, OTHER ==
[~2025-02-10] MED LIST changes: +CEPH500B PO; +DULA0.75 SQ; +FLUD0.1T2 PO; +FLUT1BLS3 IH; +HYDR25TA67 PO; +INSU100V37 SQ; +LORA10TA7 PO; +MAGN250T10 PO; +NACL1 PO; +NITR0.4T SL; +POTA-202 PO
--- NOTE | 2025-02-18 15:27 | HMCIMG ---
STUDY PERFORMED: BD Bone Density DEXA Axial Skeleton TECHNIQUE: [employer] Dual Energy X-ray absorptiometry (DEXA) COMPARISON: None available. FINDINGS: Lumbar Spine L1-L4 Density(g/cm2): 0.758 T-score: -2.6 Z-score: 0.0 Left Femoral Neck Density(g/cm2): 0.501 T-score: -3.2 Z-score: -0.9 Total Proximal Femur Density(g/cm2): 0.602 T-score: -2.7 Z-score: -0.7 INTERPRETATION: The bone mineral density in the lumbar spine is in the osteoporosis range. Note that the images for he lumbar spine were not available for review, assessment based on computed calculations provided by machine. The bone mineral density of the left hip is in the osteoporosis range. COMMENTS: T-scores are a means of evaluating bone mineral density relative to young adult population and are defined as the number of standard deviations of the mean. T-scores at or above -1.0 are considered normal. T-scores between -1.0 and -2.5 are consistent with osteopenia. T-scores at or below -2.5 are consistent with osteoporosis. T-score values below -2.0 are thought to be associated with an increased risk of fracture. Z-scores are related to age-matched controls. The study does not distinguish osteoporosis from other causes of decreased bone density such as osteomalacia or multiple myeloma. Therefore, if clinically indicated or Z-scores are less than -2.0, additional metabolic studies may be appropriate. RECOMMENDATIONS: National Osteoporosis Foundation (NOF) guidelines recommend initiating therapy to reduce fracture risk in women with BMD: T-Score below -2 SD T-Score Below -1.5 with other risks factors present NOF guidelines recommend all people with T score of -2.5 and below (osteoporosis) consider taken osteoporosis medication. The NOF recommends adults under age 50 need 1,000 mg of calcium and 400-800 IU of vitamin D daily. Adults 50 and over need 1,200 mg of calcium and 800-1000 IU of vitamin D daily. Effective therapies for the prevention of osteoporosis include bisphosphonates (Fosamax and Actonel) and Evista. Hormone therapy may be an option based on review of risks and benefit of treatment. People with diagnosed cases of osteoporosis or at high risk for fracture should have regular bone mineral density tests. For patients eligible for Medicare, routine testing is allowed once every 2 years. The testing frequency can be increased to one year for patients who have rapidly progressing disease, those who are receiving or discontinuing medical therapy to restore bone mass, or have additional risk factors. /[place]
== END | disposition home or self-care (01) ==
LOC: RAH 09:16
PROVIDERS: ATTEND Internal Medicine
DX: M81.0 Age-related osteoporosis without current pathological fracture (principal); N95.0 Postmenopausal bleeding; N95.9 Unspecified menopausal and perimenopausal disorder
CPT/HCPCS: 77080

== ENCOUNTER 2025-02-14 16:05 | Observation (INO) | payer OTHER ==
[~2025-02-14] VITALS: Ht 162.6 cm; Wt 59.0 kg
[~2025-02-14 16:05] MED LIST changes: -DULA0.75 SQ; -FLUD0.1T2 PO; -FLUT1BLS3 IH; -HYDR25TA67 PO; -INSU100V37 SQ; -LORA10TA7 PO; -MAGN250T10 PO; -NACL1 PO; -NITR0.4T SL; -POTA-202 PO
--- NOTE | 2025-02-14 16:52 | ERN ---
General Chief Complaint: Chest Pain Stated Complaint: CHEST PAIN Time Seen by MD: 16:09 Source: patient, family History of Present Illness Initial Comments Patient is a 79-year-old female coming in to be evaluated for epigastric and back pain. Per patient she has been having this chest pain epigastric pain she is 30 minutes prior to arrival. No fever no chills. Patient does has a history of CAD. Allergies: Coded Allergies: No Known Drug Allergies (Unverified Allergy, Unknown, 12/18/17) Home Meds Active Scripts Cephalexin Monohydrate (Keflex) 500 Mg Cap, 500 MG PO QID for 3 Days, #12 CAP Prov:ANAHY RICHARDS MD 01/13/25 Meclizine HCl (Antivert) 25 Mg Tab.chew, 25 MG PO TIDP PRN for VERTIGO, #30 TAB.CHEW Prov:VAN SANCHEZ MD 09/28/23 Reported Medications Albuterol Sulfate (Ventolin Hfa) 90 Mcg Hfa.aer.ad, 18 GM IH Q4HPRN PRN for SHORTNESS OF BREATH, INHALER 09/28/23 Buspirone HCl (Buspirone HCl) 7.5 Mg Tablet, 7.5 MG PO BID PRN for ANXIETY/AGITATION, TAB 09/28/23 Dapagliflozin Propanediol (Farxiga) 5 Mg Tablet, 5 MG PO DAILY, TAB 09/28/23 Metoprolol Succinate (Metoprolol Succinate) 100 Mg Tab.er.24h, 100 MG PO DAILY, TAB 09/28/23 Losartan Potassium (Losartan Potassium) 25 Mg Tablet, 12.5 MG PO TID PRN for IF SBP GREATER THAN, TAB 09/28/23 Aspirin (Aspirin EC) 81 Mg Tablet.dr, 81 MG PO DAILY, TAB 09/28/23 Insulin Detemir (Levemir) 100 Unit/1 Ml Vial, 13 UNIT SQ DAILY, VIAL 08/15/22 Aspirin (Aspirin) 325 Mg Tablet, 325 MG PO DAILY, TAB 08/15/22 Pantoprazole Sodium (Pantoprazole Sodium) 40 Mg Tablet.dr, 40 MG PO HS, TAB 08/15/22 Acetaminophen with Codeine (Acetaminophen-Cod #3 Tablet) 1 Each Tablet, 1 EACH PO Q6HPRN PRN for PAIN, TAB 08/15/22 Rosuvastatin Calcium (Rosuvastatin Calcium) 20 Mg Tablet, 20 MG PO HS, TAB 12/09/21 Isosorbide Mononitrate (Isosorbide Mononitrate ER) 60 Mg Tab.er.24h, 60 MG PO BI D, TAB 12/09/21 Dulaglutide (Trulicity) 1.5 Mg/0.5 Ml Pen.injctr, 1.5 MG SQ QWEEK on fridays01/16/18 Past Medical History Past Medical History: Diabetes-Type II, High Cholesterol, Heart Disease, Hyper tension Medical History Other: vertigo Past Surgical History: CABG Surgical History Other: cardiac stents Family History Family History: Negative Social History Social History: Negative, Lives with family Female( History) History: Not Applicable ROS Dictation CONSTITUTIONAL: No chills, no fever, no weakness, no diaphoresis, no malaise. HEAD/FACE: No signs of trauma. EENT: No eye pain, no blurred vision, no tearing, no double vision, no ear pain, no ear discharge, no nose pain, no nasal congestion, no throat pain, no throat swelling, no mouth pain. RESPIRATORY: No cough, no orthopnea, no SOB, no stridor, no wheezing. CARDIOVASCULAR: chest pain, no edema, no palpitations, no syncope. GASTROINTESTINAL/ABDOMINAL: abdominal pain, no constipation, no diarrhea, no nausea, no vomiting. GENITOURINARY: No abnormal discharge, no dysuria, no frequent urination, no hematuria. No complaints of pain in the genitals. MUSCULOSKELETAL: No back pain, no gout, no joint pain, no joint swelling, no muscle pain, no muscle stiffness, no neck pain. INTEGUMENTARY: No change in color, no change in hair/nails, no dryness, no lesion, no lumps, no rash. NEUROLOGICAL/PSYCH: No anxiety, not depressed, no emotional problem, no headache, no numbness, no pre-existing deficit, no history of seizures, no tremors, no weakness. HEMATOLOGIC/LYMPHATIC: Not anemic, no history of blood clots, no apparent bleeding, no bruising, glands not swollen. All Systems Negative, Except as Noted. Physical Exam Physical Exam Dictation VITAL SIGNS: Reviewed. GENERAL APPEARANCE: Alert, oriented x3, no acute distress, obese. HEAD AND FACE: Non-traumatic. EYES: PERRL, pink conjunctivas, eyelid no trauma, anterior chamber clear. EARS: Pinnas intact and no signs of trauma or erythema. Ear canals clear and no discharge. TMs no erythema. NOSE: No discharge, no bleeding. OROPHARYNX: Mouth normal, teeth no caries, tongue pink. Pharynx clear, no erythema. Tonsils no exudates, no abscesses noted. Mucous membrane moist. NECK: Supple, non-tender, no thyromegaly, no masses, no JVD, no bruits. BREAST: Deferred. CHEST: No tenderness, no crepitus, no paradoxical movement, no retractions. LUNGS: Clear, well-ventilated, symmetric, no rales, no wheezing, no rhonchi, no stridor, good breath sounds bilaterally. HEART: Regular rate, regular rhythm, no murmur, no gallops. VASCULAR: No peripheral edema. ABDOMEN: Soft, positive bowel sounds, nondistended, no guarding, epigastric tender, no rebound, no masses no hepatomegaly, no splenomegaly, no Manrique's sign, no hernias. RECTAL: Deferred. GENITAL: Deferred. NEUROLOGICAL: Normal speech, gross motor function intact, gross sensory function intact. MUSCULOSKELETAL: Neck nontender, full range of motion, back nontender, full range of motion. EXTREMITIES: Nontender, full range of motion. SKIN: Color pink, dry, no turgor, no rash, no lacerations, no abrasions, no contusions. LYMPHATICS: Deferred. Results Laboratory and Microbiology Lab and Micro Result Laboratory Tests Test 02/14/25 16:47 White Blood Count 7.9 K/uL (4.8-10.8) Red Blood Count 4.22 MIL/uL (4.00-5.50) Hemoglobin 12.9 g/dL (12.0-16.0) Hematocrit 36.7 % (36-48) Mean Corpuscular Volume 87.0 fL (79-99) Mean Corpuscular Hemoglobin 30.6 pg (27.0-33.0) Mean Corpuscular Hemoglobin Concent 35.1 g/dL (32.0-36.0) Red Cell Distribution Width 12.8 % (11.0-15.5) Platelet Count 144 K/uL (130-400) Mean Platelet Volume 11.9 fL (7.5-10.5) H Immature Granulocyte % (Auto) 0.3 % (0-1) Neutrophils (%) (Auto) 66.0 % (40.0-77.0) Lymphocytes (%) (Auto) 23.9 % (21.0-51.0) Monocytes (%) (Auto) 5.5 % (3.0-13.0) Eosinophils (%) (Auto) 3.8 % (0.0-8.0) Basophils (%) (Auto) 0.5 % (0.0-5.0) Neutrophils # (Auto) 5.2 K/uL (1.8-7.7) Lymphocytes # (Auto) 1.9 K/uL (1.0-4.8) Monocytes # (Auto) 0.4 K/uL (0.1-1.0) Eosinophils # (Auto) 0.30 K/uL (0.00-0.70) Basophils # (Auto) 0.04 K/uL (0.00-0.20) Absolute Immature Granulocyte (auto 0.02 K/uL (0-1) Nucleated Red Blood Cells 0.0 % (0.0-0.19) Sodium Level 143 mmol/L (136-145) Potassium Level 3.0 mmol/L (3.5-5.1) *L Chloride Level 105 mmol/L (101-111) Carbon Dioxide Level 28 mmol/L (21-32) Blood Urea Nitrogen 14 mg/dL (7-18) Creatinine 0.7 mg/dL (0.5-1.0) Glomerular Filtration Rate Calc 88 mL/min (>90) Random Glucose 133 mg/dL (70-105) H Total Calcium 7.7 mg/dL (8.5-10.1) L Magnesium Level 1.50 mg/dL (1.80-2.40) L Troponin I High Sensitivity 12 ng/L (4-50) Labs Reviewed?: Yes EKG/XRAY/US/CT/MRI EKG Comment 02/14/2025 time 4:09 p.m. Ventricular rate [address] wave elevation or depression X-RAY Comment IMAGING REPORT Signed PATIENT: KATHRYN BURCH MR#: [id number] : 1945 SEX: F AGE: 79 LOCATION: [facility] ORDER 27 STATUS: REG ER REPORT#: [id number] SERVICE 26 REASON: cp ORDERING PHYSICIAN: ONELIA THAYER MD PROCEDURE: CXR1VW - CHEST 1VW EXAM: CR Chest, 1 View. CLINICAL HISTORY: cp COMPARISON: Radiograph dated September 16, 2024 FINDINGS: LUNGS: There is no mass, infiltrate, or acute pulmonary abnormality. PLEURAL SPACES: No evidence of pleural effusion or pneumothorax. MEDIASTINUM: Prior sternotomy. The cardiomediastinal silhouette is within normal limits. BONES: No acute osseous abnormality. IMPRESSION: 1. No acute cardiopulmonary findings. /[place] DICTATED BY: MARY CHÁVEZ Jr., MD DATE: 02/14/251925 ELECTRONICALLY SIGNED BY: MARY CHÁVEZ Jr., MD DATE: 02/14/251925 [facility] MDM: Differential diagnosis: Chest pain, epigastric pain, Rationale: Tests considered and ordered secondary to shared decision making include: labs, ECG and radiology Previous outside records reviewed: Old ER visits. Risk of complication and/or morbidity or mortality of patient management: None Medications-Per medication reconciliation Need for hospitalization: Patient does meet criteria for hospitalization. Need for emergency major/minor surgery: No There are no social concerns with this patient. Prescription drug management Prescriptions will include symptomatic care Patient's prior external medical records from other ER visits were reviewed by me as indicated. Prior testing and results from previous visits were reviewed. Prior tests were taken into account with medical decision making and resource utilization, independent historian/historians were used to obtain complete medical history. I independently interpreted the test that were performed, results were reviewed by me and considered findings on radiology if ordered. Medical management and examination interpretation discussions were had by me with other qualified healthcare professionals as indicated for the patient's care. He will be admitted under the care of Dr. Bhardwaj for ongoing management. ED Course Orders Procedure Category Date Status Time Cbc With Differential LAB 02/14/25 Complete 16:27 Chest 1vw RAD 02/14/25 Resulted 16:27 12 Lead Ekg Tracing- EKG 02/14/25 Complete Technical 16:27 Nitroglycerin 1gm PHA 02/14/25 Complete Oint (Nitroglycerin 1g 16:30 Magnesium LAB 02/14/25 Complete 16:27 Troponin I High LAB 02/14/25 Complete Sensitivity 16:27 Urinalysis Profile LAB 02/14/25 Logged 16:27 Basic Metabolic Panel LAB 02/14/25 Complete 16:27 Pantoprazole 40mg Inj PHA 02/14/25 Complete (Protonix 40mg Inj 16:30 Potassium Chloride PHA 02/14/25 Complete 10meq/100ml ([place] 17:30 Magnesium 2gm Premix PHA 02/14/25 Complete 50ml (Magnesium 2gm 17:08 Troponin I High LAB 02/14/25 In Process Sensitivity 17:56 Labetalol 20mg Syg PHA 02/14/25 Complete (Trandate 20mg Syg) 18:00 Current Medications Medications (Trade) Dose Ordered Sig/Adi Route PRN Reason Start Time Stop Time Status Last Admin Dose Admin Labetalol HCl (TRANdate 20MG SYG) 10 mg ONCE ONCE IV 02/14/25 18:00 02/14/25 18:01 DC 02/14/25 18:04 Magnesium Sulfate 50 ml @ 0 mls/hr PROTOCOL STAT IV 02/14/25 17:08 02/14/25 17:10 DC 02/14/25 17:49 Nitroglycerin (Nitroglycerin 1gm Oint) 1 inch ONCE ONCE TD 02/14/25 16:30 02/14/25 16:31 DC 02/14/25 17:01 Pantoprazole Sodium (PROTonix 40MG INJ) 40 mg ONCE ONCE IVP 02/14/25 16:30 02/14/25 16:31 DC 02/14/25 17:01 Potassium Chloride 100 ml @ 100 mls/hr ONCE ONCE IV 02/14/25 17:30 02/14/25 18:29 DC Vital Signs Date Time Temp Pulse Resp B/P (MAP) Pulse Ox O2 Delivery O2 Flow Rate FiO2 02/14/25 18:15 97.9 68 22 173/65 96 Room Air* 0 02/14/25 18:04 70 221/82 02/14/25 18:00 97.9 70 22 221/82 97 Room Air* 0 02/14/25 16:54 97.9 69 19 199/81 95 Room Air* 0 02/14/25 16:09 98.4 84 18 123/67 97 Room Air* 0 21 02/14/25 16:05 98.4 84 18 123/67 97 Room Air 0 DX & DISP Disposition: Inpatient Decision to Admit Time: 18:34 Departure Impression: Primary Impression: Coronary artery disease Additional Impressions: Chest pain, Hypertension Condition: Stable Referrals: JEANIE BHARDWAJ MD (PCP) ONELIA THAYER MD Feb 14, 2025 16:52
--- NOTE | 2025-02-14 16:54 | EKG ---
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
[2025-02-14 16:55] LABS: IMMATURE GRANULOCYTE ABSOLUTE 0.02 K/uL (0-1); NUCLEATED RED BLOOD CELLS 0.0 % (0.0-0.19); PLATELET COUNT (AUTO) 144 K/uL (130-400); RED BLOOD CELL COUNT(AUTO) 4.22 MIL/uL (4.00-5.50); RED CELL DISTRIBUTION WIDTH 12.8 % (11.0-15.5); WHITE BLOOD COUNT (AUTO) 7.9 K/uL (4.8-10.8)
[2025-02-14] MEDS: NITROGLYCERIN 1GM OINT 1 INCH/1GM TD ONE (17:01)
[2025-02-14 17:03] LABS: CREATININE 0.7 mg/dL (0.5-1.0); GLOMERULAR FILTR. RATE CALC 88.0 mL/min (>90); GLUCOSE,RANDOM 133.0 mg/dL (70-105); SODIUM SERUM 143.0 mmol/L (136-145); UREA NITROGEN, BLOOD 14.0 mg/dL (7-18)
[2025-02-14] MEDS: MAGNESIUM 2GM PREMIX 50ML 50 ML IV STA (17:49)
--- NOTE | 2025-02-14 18:27 | HMCIMG ---
EXAM: CR Chest, 1 View. CLINICAL HISTORY: cp COMPARISON: Radiograph dated September 16, 2024 FINDINGS: LUNGS: There is no mass, infiltrate, or acute pulmonary abnormality. PLEURAL SPACES: No evidence of pleural effusion or pneumothorax. MEDIASTINUM: Prior sternotomy. The cardiomediastinal silhouette is within normal limits. BONES: No acute osseous abnormality. IMPRESSION: 1. No acute cardiopulmonary findings. /[place]
[2025-02-14] MEDS ORDERED: GLUCAGON 1MG KIT 1 MG ML IM PRN (19:00)
[2025-02-14] MEDS ORDERED: DEXTROSE 50%-WATER 50 ML DISP.SYRIN IV PRN (19:00)
--- NOTE | 2025-02-14 19:35 | NUR ---
PT CARE ASSUMED AT THIS TIME
[2025-02-14 19:53] VITALS: TEMP 98
--- NOTE | 2025-02-14 21:41 | NUR ---
SPOKE TO DR. CAMPBELL ABOUT BP AT THIS TIME. ORDERS GIVEN.
[2025-02-14 22:00] VITALS: BP 176/72; PULSE 75; RESP 20; O2SAT 97
[2025-02-14] MEDS ORDERED: LISINOPRIL 20 MG TABLET PO ONE (22:00)
--- NOTE | 2025-02-14 22:00 | NUR ---
PT REQUEST TO LEAVE AMA AT THIS TIME. PT IS A&OX4 WITH FULL DECISIONAL CAPACITY. THE PATIENT REPORTS THAT SHE UNDERSTANDS HE CONDITION AND THE RISKS ASSOCIATED WITH LEAVING AMA, INCLUDING BUT NOT LIMITED TO PERAMANENT DISABILITY OR AND HAS HAD THE OPPORTUNITY TO ASK QUESTIONS ABOUT THEIR MEDICAL CONDITION. THE PATIENT HAS BEEN INFORMED TO SEEK MEDICAL SERVICES IN THE EVENT OF AN EMERGENCY. PT VERBILIZED UNDERSTANDING OF THE ABOVE STATMENTS. AMA FORM SIGNED AND IN PATIENT CHART WITHNESSED BY ROQUE (PRIMARY NURSE) AND SRIKANTH NOLEN (SECONDARY NURSE). VS BP - 176/72 HR- 75 RR- 20 SO2 - 97%
--- NOTE | 2025-02-14 23:13 | HP ---
HISTORY AND PHYSICAL Date of Visit: Feb 14, 2025 Time of Visit: 23:12 ADMISSION DATE: Feb 14, 2025 at 18:50 CC: CHEST PAIN HPI: 79 YR OLD WOMAN WITH HX CAD WHO PRESENTED WITH CHEST PAIN BUT THEN LEFT AMA PAST MEDICAL HISTORY: [] SOCIAL HISTORY: [] FAMILY HISTORY: [] Patient History: Family history: Alzheimer's disease SISTER Family history: Cardiovascular disease SISTER SISTER SISTER SISTER Family history: Diabetes mellitus BROTHER SISTER SISTER SISTER SISTER Family history: Hypertension MOTHER FATHER BROTHER BROTHER BROTHER SISTER SISTER SISTER SISTER SISTER SISTER SISTER DAUGHTER SON No Family History of: Cancer Carcinomas Chronic obstructive lung disease Immunocompromised state Stroke Sudden Allergies: Coded Allergies: No Known Drug Allergies (Unverified Allergy, Unknown, 12/18/17) Scheduled Aspirin (Aspirin EC), 81 MG PO DAILY, (Reported) Dulaglutide (Trulicity), 0.5 ML SQ QWEEK Fludrocortisone Acetate (Fludrocortisone Acetate), 2 TAB PO DAILY Fluticasone/Umeclidin/Vilanter (Trelegy Ellipta 100-62.5-25), 1 PUFF IH DAILY Insulin Degludec (Tresiba), 10 UNIT SQ DAILY Magnesium Oxide (Magnesium), 1 TAB PO DAILY Nitroglycerin (Nitrostat), 1 TAB SL AD Pantoprazole Sodium (Pantoprazole Sodium), 40 MG PO HS, (Reported) Potassium Chloride (Potassium Chloride), 1 TAB PO BID Rosuvastatin Calcium (Rosuvastatin Calcium), 20 MG PO HS, (Reported) Rosuvastatin Calcium (Rosuvastatin Calcium), 20 MG PO DAILY Scheduled PRN Acetaminophen with Codeine (Acetaminophen-Cod #3 Tablet), 0.5 TAB PO BID PRN for pain Albuterol Sulfate (Ventolin Hfa), 18 GM IH Q4HPRN PRN for SHORTNESS OF BREATH, (Reported) Hydralazine HCl (Hydralazine HCl), 1 TAB PO TID PRN for IF SBP GREATER THAN 140 Loratadine (Loratadine), 1 TAB PO DAILY PRN for NASAL CONGESTION Sodium Chloride (NaCl), 1 TAB PO DAILY PRN for OTHER [SEE ORDER COMMENTS] Discontinued Medications Aspirin (Aspirin), 325 MG PO DAILY, (Reported) Dulaglutide (Trulicity), 1.5 MG SQ QWEEK, (Reported) Insulin Detemir (Levemir), 13 UNIT SQ DAILY, (Reported) Isosorbide Mononitrate (Isosorbide Mononitrate ER), 60 MG PO BID, (Reported) Losartan Potassium (Losartan Potassium), 12.5 MG PO TID PRN for IF SBP GREATER THAN, (Reported) Meclizine HCl (Antivert), 25 MG PO TIDP PRN for VERTIGO Physical Exam Vital Signs Vital Signs Date Time Temp Pulse Resp B/P (MAP) Pulse Ox O2 Delivery O2 Flow Rate FiO2 02/14/25 16:05 98.4 84 18 123/67 97 Room Air 0 02/14/25 16:09 21 Diagnostics Laboratory Tests Test 02/14/25 16:47 02/14/25 18:28 02/14/25 21:23 Range/Units White Blood Count 7.9 4.8-10.8 K/uL Red Blood Count 4.22 4.00-5.50 MIL/uL Hemoglobin 12.9 12.0-16.0 g/dL Hematocrit 36.7 36-48 % Mean Corpuscular Volume 87.0 79-99 fL Mean Corpuscular Hemoglobin 30.6 27.0-33.0 pg Mean Corpuscular Hemoglobin Concent 35.1 32.0-36.0 g/dL Red Cell Distribution Width 12.8 11.0-15.5 % Platelet Count 144 130-400 K/uL Mean Platelet Volume 11.9 7.5-10.5 fL Immature Granulocyte % (Auto) 0.3 0-1 % Neutrophils (%) (Auto) 66.0 40.0-77.0 % Lymphocytes (%) (Auto) 23.9 21.0-51.0 % Monocytes (%) (Auto) 5.5 3.0-13.0 % Eosinophils (%) (Auto) 3.8 0.0-8.0 % Basophils (%) (Auto) 0.5 0.0-5.0 % Neutrophils # (Auto) 5.2 1.8-7.7 K/uL Lymphocytes # (Auto) 1.9 1.0-4.8 K/uL Monocytes # (Auto) 0.4 0.1-1.0 K/uL Eosinophils # (Auto) 0.30 0.00-0.70 K/uL Basophils # (Auto) 0.04 0.00-0.20 K/uL Absolute Immature Granulocyte (auto 0.02 0-1 K/uL Nucleated Red Blood Cells 0.0 0.0-0.19 % Sodium Level 143 136-145 mmol/L Potassium Level 3.0 3.5-5.1 mmol/L Chloride Level 105 101-111 mmol/L Carbon Dioxide Level 28 21-32 mmol/L Blood Urea Nitrogen 14 7-18 mg/dL Creatinine 0.7 0.5-1.0 mg/dL Glomerular Filtration Rate Calc 88 >90 mL/min Random Glucose 133 70-105 mg/dL Total Calcium 7.7 8.5-10.1 mg/dL Magnesium Level 1.50 1.80-2.40 mg/dL Troponin I High Sensitivity 12 13 4-50 ng/L Whole Blood Glucose 139 70-110 MG/DL Assessment/Plan Assessment/Plan ASSESSMENT: [] PLAN: [] JEANIE CAMPBELL MD Feb 14, 2025 23:12
[2025-02-14] MEDS ORDERED: ACET-2079 PO (23:16)
[2025-02-14] MEDS ORDERED: HYDR25TA67 PO (23:24)
[2025-02-14] MEDS ORDERED: FLUD0.1T2 PO (23:24)
[2025-02-14] MEDS ORDERED: MAGN250T10 PO (23:24)
[2025-02-14] MEDS ORDERED: NITR0.4T SL (23:24)
[2025-02-14] MEDS ORDERED: LORA10TA7 PO (23:24)
[2025-02-14] MEDS ORDERED: FLUT1BLS3 IH (23:29)
[2025-02-14] MEDS ORDERED: DULA0.75 SQ (23:29)
[2025-02-14] MEDS ORDERED: INSU100V37 SQ (23:29)
[2025-02-14] MEDS ORDERED: ROSU20TA98 PO (23:29)
[2025-02-14] MEDS ORDERED: POTA-202 PO (23:29)
[2025-02-14] MEDS ORDERED: NITROGLYCERIN 0.4 MG SL TAB SL SCH (23:30)
[2025-02-14] MEDS ORDERED: NACL1 PO (23:30)
[2025-02-14] MEDS ORDERED: LORATAdine 10 mg 10 MG TABLET PO PRN (23:30)
[2025-02-14] MEDS ORDERED: ALBUTEROL 0.083% 2.5 MG/3 ML INH IH PRN (23:45)
[2025-02-15] MEDS ORDERED: NITROGLYCERIN 1GM OINT 1 INCH/1GM TD SCH
[2025-02-15] MEDS ORDERED: ASPIRIN 81 MG EC TAB PO SCH (09:00)
[2025-02-15] MEDS ORDERED: MAGNESIUM OXIDE PO SCH (09:00)
[2025-02-15] MEDS ORDERED: FLUDROCORTISONE ACETATE 0.1 MG TABLET PO SCH (09:00)
[2025-02-15] MEDS ORDERED: PoTASSium chloRIDE 20MEQ ER 20 MEQ ERTAB PO SCH (09:00)
[2025-02-15] MEDS ORDERED: NON-FORMULARY MEDICATION 1 EACH (Rosuvastatin Calcium 20 MG) PO SCH ×2 (09:00→21:00)
== END 2025-02-14 22:00 | disposition left against medical advice (07) ==
LOC: EDH 16:05 → EDHIP 18:50
PROVIDERS: ADMIT Internal Medicine; ATTEND Internal Medicine
DX: R07.9 Chest pain, unspecified (principal); R10.13 Epigastric pain; M54.9 Dorsalgia, unspecified; I25.10 Atherosclerotic heart disease of native coronary artery without angina pectoris; E11.9 Type 2 diabetes mellitus without complications; I11.9 Hypertensive heart disease without heart failure; E78.00 Pure hypercholesterolemia, unspecified; Z95.1 Presence of aortocoronary bypass graft; Z95.5 Presence of coronary angioplasty implant and graft; Z79.899 Other long term (current) drug therapy
CPT/HCPCS: 96361; 96365; 96375; 99285; 83735; 84484 ×2; 80048; 85025; 82948; 36415; 71045; 93005; G0378 ×3; J3475; J2470; J3480

== ENCOUNTER 2025-05-14 12:13 | Observation (INO) | payer OTHER, MEDICARE ==
[~2025-05-14] VITALS: Ht 165.1 cm; Wt 63.5 kg
[~2025-05-14 12:13] MED LIST changes: -ASPI-1026 PO; -BUSP7.5T7 PO; -CEPH500B PO; -DAPA5TAB PO; +DULA0.75 SQ; -DULA1.5P SQ; +FLUD0.1T2 PO; +FLUT1BLS3 IH; +HYDR25TA67 PO; -INSU100V12 SQ; +INSU100V37 SQ; -ISOS60TA77 PO; +LORA10TA7 PO; -LOSA25TA41 PO; +MAGN250T10 PO; -MECL-262 PO; -METO-409 PO; +NACL1 PO; +NITR0.4T SL; +POTA-202 PO
--- NOTE | 2025-05-14 12:44 | ERN ---
General Chief Complaint: Chest Pain Stated Complaint: CP Time Seen by MD: 12:15 Source: patient History of Present Illness Initial Comments PATIENT IS A 79-YEAR-OLD FEMALE COMING IN COMPLAINING OF LEFT-SIDED CHEST PAIN. PATIENT STATES THAT SHE HAS A HISTORY OF OPEN HEART SURGERY PERFORMED IN 2001 1003. PATIENT STATES THAT THE PAIN WAXES AND WANES IS LOCATED TO THE LEFT SIDE OF THE CHEST AND RADIATES TO THE BACK. Allergies: Coded Allergies: No Known Drug Allergies (Unverified Allergy, Unknown, 12/18/17) Home Meds Active Scripts Sodium Chloride (NaCl) 1,000 Mg Tab, 1 TAB PO DAILY PRN for OTHER [SEE ORDER COMMENTS] for 30 Days, #60 TAB 0 Refills Prov:JEANIE CAMPBELL MD 02/14/25 Fluticasone/Umeclidin/Vilanter (Trelegy Ellipta 100-62.5-25) 100-62.5 Blst.w.dev, 1 PUFF IH DAILY for 30 Days, #1 EACH 0 Refills Prov:JEANIE CAMPBELL MD 02/14/25 Dulaglutide (Trulicity) 0.75 Mg/0.5 Ml Pen.injctr, 0.5 ML SQ QWEEK for 28 Days, #2 ML 0 Refills Prov:JEANIE CMAPBELL MD 02/14/25 Insulin Degludec (Tresiba) 100 Unit/Ml Vial, 10 UNIT SQ DAILY, #60 VIAL 1 Refill Prov:JEANIE CAMPBELL MD 02/14/25 Rosuvastatin Calcium (Rosuvastatin Calcium) 20 Mg Tablet, 20 MG PO DAILY, #90 TAB Prov:JEANIE CAMPBELL MD 02/14/25 Potassium Chloride (Potassium Chloride) 20 Meq Tab.er.prt, 1 TAB PO BID for 30 Days, #60 TAB 0 Refills Prov:JEANIE CAMPBELL MD 02/14/25 Nitroglycerin (Nitrostat) 0.4 Mg Tab.subl, 1 TAB SL AD for chest pain, #25 TAB 0 Refills 1st sign of attack; may repeat every 5 mins; if pain persists after 3 in 15 min, medical attention is recommended Prov:JEANIE CAMPBELL MD 02/14/25 Magnesium Oxide (Magnesium) 250 Mg Tablet, 1 TAB PO DAILY for 30 Days, #30 TAB 0 Refills Prov:JEANIE CAMPBELL MD 02/14/25 Loratadine (Loratadine) 10 Mg Tablet, 1 TAB PO DAILY PRN for NASAL CONGESTION for 30 Days, #30 TAB 0 Refills Prov:JEANIE CAMPBELL MD 02/14/25 Hydralazine HCl (Hydralazine HCl) 25 Mg Tablet, 1 TAB PO TID PRN for IF SBP GREATER THAN 140 for 30 Days, #90 TAB 0 Refills Prov:JEANIE CAMPBELL MD 02/14/25 Fludrocortisone Acetate (Fludrocortisone Acetate) 0.1 Mg Tablet, 2 TAB PO DAILY for 30 Days, #30 TAB 0 Refills Prov:JEANIE CAMPBELL MD 02/14/25 Acetaminophen with Codeine (Acetaminophen-Cod #3 Tablet) 300 Mg-30 Mg Tablet, 0.5 TAB PO BID PRN for pain, #28 TAB 0 Refills Prov:JEANIE CAMPBELL MD 02/14/25 Reported Medications Albuterol Sulfate (Ventolin Hfa) 90 Mcg Hfa.aer.ad, 18 GM IH Q4HPRN PRN for SHORTNESS OF BREATH, INHALER 09/28/23 Aspirin (Aspirin EC) 81 Mg Tablet.dr, 81 MG PO DAILY, TAB 09/28/23 Pantoprazole Sodium (Pantoprazole Sodium) 40 Mg Tablet.dr, 40 MG PO HS, TAB 08/15/22 Rosuvastatin Calcium (Rosuvastatin Calcium) 20 Mg Tablet, 20 MG PO HS, TAB 12/09/21 Past Medical History Past Medical History: CAD, Diabetes-Type II, High Cholesterol, Hypertension Medical History Other: vertigo Past Surgical History: CABG, Other Surgical History Other: BACK SX, KNEE SX Family History Family History: Negative Social History Social History: Negative, Lives with family Female( History) History: Not Applicable ROS Dictation CONSTITUTIONAL: NO CHILLS, NO FEVER, NO WEAKNESS, NO DIAPHORESIS, NO MALAISE. HEAD/FACE: NO SIGNS OF TRAUMA. EENT: NO EYE PAIN, NO BLURRED VISION, NO TEARING, NO DOUBLE VISION, NO EAR PAIN, NO EAR DISCHARGE, NO NOSE PAIN, NO NASAL CONGESTION, NO THROAT PAIN, NO THROAT SWELLING, NO MOUTH PAIN. RESPIRATORY: NO COUGH, NO ORTHOPNEA, NO SOB, NO STRIDOR, NO WHEEZING. CARDIOVASCULAR: CHEST PAIN, NO EDEMA, NO PALPITATIONS, NO SYNCOPE. GASTROINTESTINAL/ABDOMINAL: NO ABDOMINAL PAIN, NO CONSTIPATION, NO DIARRHEA, NO NAUSEA, NO VOMITING. GENITOURINARY: NO ABNORMAL DISCHARGE, NO DYSURIA, NO FREQUENT URINATION, NO HEMATURIA. NO COMPLAINTS OF PAIN IN THE GENITALS. MUSCULOSKELETAL: NO BACK PAIN, NO GOUT, NO JOINT PAIN, NO JOINT SWELLING, NO MUSCLE PAIN, NO MUSCLE STIFFNESS, NO NECK PAIN. INTEGUMENTARY: NO CHANGE IN COLOR, NO CHANGE IN HAIR/NAILS, NO DRYNESS, NO LESION, NO LUMPS, NO RASH. NEUROLOGICAL/PSYCH: NO ANXIETY, NOT DEPRESSED, NO EMOTIONAL PROBLEM, NO HEADACHE, NO NUMBNESS, NO PRE-EXISTING DEFICIT, NO HISTORY OF SEIZURES, NO TREMORS, NO WEAKNESS. HEMATOLOGIC/LYMPHATIC: NOT ANEMIC, NO HISTORY OF BLOOD CLOTS, NO APPARENT BLEEDING, NO BRUISING, GLANDS NOT SWOLLEN. ALL SYSTEMS NEGATIVE, EXCEPT NOTED. Physical Exam Physical Exam Dictation VITAL SIGNS: REVIEWED. GENERAL APPEARANCE: ALERT, ORIENTED X3, NO ACUTE DISTRESS, OBESE. HEAD AND FACE: NON-TRAUMATIC. EYES: PERRL, PINK CONJUNCTIVAS, EYELID NO TRAUMA, ANTERIOR CHAMBER CLEAR. EARS: PINNAS INTACT AND NO SIGNS OF TRAUMA OR ERYTHEMA. EAR CANALS CLEAR AND NO DISCHARGE. TMS NO ERYTHEMA. NOSE: NO DISCHARGE, NO BLEEDING. OROPHARYNX: MOUTH NORMAL, TEETH NO CARIES, TONGUE PINK. PHARYNX CLEAR, NO ERYTHEMA. TONSILS NO EXUDATES, NO ABSCESSES NOTED. MUCOUS MEMBRANE MOIST. NECK: SUPPLE, NON-TENDER, NO THYROMEGALY, NO MASSES, NO JVD, NO BRUITS. BREAST: DEFERRED. CHEST: NO TENDERNESS, NO CREPITUS, NO PARADOXICAL MOVEMENT, NO RETRACTIONS. LUNGS: CLEAR, WELL-VENTILATED, SYMMETRIC, NO RALES, NO WHEEZING, NO RHONCHI, NO STRIDOR, GOOD BREATH SOUNDS BILATERALLY. HEART: REGULAR RATE, REGULAR RHYTHM, NO MURMUR, NO GALLOPS. VASCULAR: NO PERIPHERAL EDEMA. ABDOMEN: SOFT, POSITIVE BOWEL SOUNDS, NONDISTENDED, NO GUARDING, NONTENDER, NO REBOUND, NO MASSES NO HEPATOMEGALY, NO SPLENOMEGALY, NO PLATA'S SIGN, NO HERNIAS. RECTAL: DEFERRED. GENITAL: DEFERRED. NEUROLOGICAL: NORMAL SPEECH, GROSS MOTOR FUNCTION INTACT, GROSS SENSORY FUNCTION INTACT. MUSCULOSKELETAL: NECK NONTENDER, FULL RANGE OF MOTION, BACK NONTENDER, FULL RANGE OF MOTION. EXTREMITIES: NONTENDER, FULL RANGE OF MOTION. SKIN: COLOR PINK, DRY, NO TURGOR, NO RASH, NO LACERATIONS, NO ABRASIONS, NO CONTUSIONS. LYMPHATICS: DEFERRED. Results Laboratory and Microbiology Lab and Micro Result Laboratory Tests Test 05/14/25 12:31 05/14/25 12:50 05/14/25 12:55 05/14/25 13:31 White Blood Count 8.0 K/uL (4.8-10.8) Red Blood Count 4.50 MIL/uL (4.00-5.50) Hemoglobin 13.7 g/dL (12.0-16.0) Hematocrit 40.3 % (36-48) Mean Corpuscular Volume 89.6 fL (79-99) Mean Corpuscular Hemoglobin 30.4 pg (27.0-33.0) Mean Corpuscular Hemoglobin Concent 34.0 g/dL (32.0-36.0) Red Cell Distribution Width 12.7 % (11.0-15.5) Platelet Count 175 K/uL (130-400) Mean Platelet Volume 12.5 fL (7.5-10.5) H Immature Granulocyte % (Auto) 0.1 % (0-1) Neutrophils (%) (Auto) 54.3 % (40.0-77.0) Lymphocytes (%) (Auto) 35.3 % (21.0-51.0) Monocytes (%) (Auto) 5.0 % (3.0-13.0) Eosinophils (%) (Auto) 4.8 % (0.0-8.0) Basophils (%) (Auto) 0.5 % (0.0-5.0) Neutrophils # (Auto) 4.4 K/uL (1.8-7.7) Lymphocytes # (Auto) 2.8 K/uL (1.0-4.8) Monocytes # (Auto) 0.4 K/uL (0.1-1.0) Eosinophils # (Auto) 0.38 K/uL (0.00-0.70) Basophils # (Auto) 0.04 K/uL (0.00-0.20) Absolute Immature Granulocyte (auto 0.01 K/uL (0-1) Nucleated Red Blood Cells 0.0 % (0.0-0.19) Prothrombin Time 10.6 SEC (9.6-11.6) Prothromb Time International Ratio 1.00 (0.85-1.15) Sodium Level 141 mmol/L (136-145) Potassium Level 5.1 mmol/L (3.5-5.1) Chloride Level 106 mmol/L (101-111) Carbon Dioxide Level 24 mmol/L (21-32) Blood Urea Nitrogen 15 mg/dL (7-18) Creatinine 1.1 mg/dL (0.5-1.0) H Glomerular Filtration Rate Calc 51 mL/min (>90) Random Glucose 149 mg/dL (70-105) H Total Calcium 8.3 mg/dL (8.5-10.1) L Magnesium Level 2.10 mg/dL (1.80-2.40) Troponin I High Sensitivity 10 ng/L (4-50) 9 ng/L (4-50) B-Type Natriuretic Peptide 66 pg/mL (0-100) Urine Color LIGHT-YELLOW (YELLOW) Urine Appearance CLEAR (CLEAR) Urine pH 5.5 (5.0-8.0) Urine Specific [place] 1.010 (1.001-1.031) Urine Protein NEGATIVE mg/dL (NEGATIVE) Urine Glucose (UA) NEGATIVE mg/dL (NEGATIVE) Urine Ketones NEGATIVE mg/dL (NEGATIVE) Urine Occult Blood NEGATIVE (NEGATIVE) Urine Nitrate NEGATIVE (NEGATIVE) Urine Bilirubin NEGATIVE mg/dL (NEGATIVE) Urine Urobilinogen 0.2 mg/dL (0.2-1.0) Urine Leukocyte Esterase NEGATIVE Allyson/uL Labs Reviewed?: Yes EKG/XRAY/US/CT/MRI EKG Comment 06/03/2025 TIME 12:18 P.M. VENTRICULAR RATE [address] [place] [address] WAVE ELEVATION OR DEPRESSION MDM MDM: DIFFERENTIAL DIAGNOSIS: CHEST PAIN, HISTORY OF CABG, HISTORY OF STENT, HYPOTENSION, RATIONALE: TESTS CONSIDERED AND ORDERED SECONDARY TO SHARED DECISION MAKING INCLUDE: LABS, ECG AND RADIOLOGY PREVIOUS OUTSIDE RECORDS REVIEWED: OLD ER VISITS. RISK OF COMPLICATION AND/OR MORBIDITY OR MORTALITY OF PATIENT MANAGEMENT: NONE MEDICATIONS-PER MEDICATION RECONCILIATION NEED FOR HOSPITALIZATION: PATIENT DOES MEET CRITERIA FOR HOSPITALIZATION. NEED FOR EMERGENCY MAJOR/MINOR SURGERY: NO THERE ARE NO SOCIAL CONCERNS WITH THIS PATIENT. PRESCRIPTION DRUG MANAGEMENT PRESCRIPTIONS WILL INCLUDE SYMPTOMATIC CARE PATIENT'S PRIOR EXTERNAL MEDICAL RECORDS FROM OTHER ER VISITS WERE REVIEWED BY ME INDICATED. PRIOR TESTING AND RESULTS FROM PREVIOUS VISITS WERE REVIEWED. PRIOR TESTS WERE TAKEN INTO ACCOUNT WITH MEDICAL DECISION MAKING AND RESOURCE UTILIZATION, INDEPENDENT HISTORIAN/HISTORIANS WERE USED TO OBTAIN COMPLETE MEDICAL HISTORY. I INDEPENDENTLY INTERPRETED THE TEST THAT WERE PERFORMED, RESULTS WERE REVIEWED BY ME AND CONSIDERED FINDINGS ON RADIOLOGY IF ORDERED. MEDICAL MANAGEMENT AND EXAMINATION INTERPRETATION DISCUSSIONS WERE HAD BY ME WITH OTHER QUALIFIED HEALTHCARE PROFESSIONALS INDICATED FOR THE PATIENT'S CARE. PATIENT PRESENTS TO THE ER COMPLAINING OF CHEST PAIN WITH HER ELEVATED HEART SCORE DUE TO CABG AND STENT PLACEMENT WELL HYPOTENSION. PATIENT WILL BE ADMITTED UNDER THE CARE OF OF DR. CAMPBELL FOR ONGOING MANAGEMENT. ED Course Orders Procedure Category Date Status Time Cbc With Differential LAB 05/14/25 Complete 12:24 Prothrombin Time With LAB 05/14/25 Complete INR 12:24 Chest 1vw RAD 05/14/25 Resulted 12:24 12 Lead Ekg Tracing- EKG 05/14/25 Complete Technical 12:24 Magnesium LAB 05/14/25 Complete 12:24 Troponin I High LAB 05/14/25 Complete Sensitivity 12:24 Urinalysis Profile LAB 05/14/25 Complete 12:24 Basic Metabolic Panel LAB 05/14/25 Complete 12:24 Troponin I High LAB 05/14/25 Complete Sensitivity 13:21 B-Type Natriuretic LAB 05/14/25 Complete Peptide 13:21 0.9% Nacl 500ml PHA 05/14/25 Complete Iv.Soln (Ns 500ml 13:30 Current Medications Medications (Trade) Dose Ordered Sig/Adi Route PRN Reason Start Time Stop Time Status Last Admin Dose Admin Sodium Chloride 500 ml @ 0 mls/hr ONCE ONCE IV 05/14/25 13:30 05/14/25 13:31 DC 05/14/25 13:39 Vital Signs Date Time Temp Pulse Resp B/P (MAP) Pulse Ox O2 Delivery O2 Flow Rate FiO2 05/14/25 14:27 97.9 70 15 173/80 98 Room Air* 0 05/14/25 12:29 97.5 83 21 130/58 0 Room Air* 0 05/14/25 12:15 97.5 96 18 84/42 99 Room Air 0 DX & DISP Disposition: Inpatient Decision to Admit Time: 14:30 Departure Impression: Primary Impression: Chest pain Additional Impression: Hypotension Condition: Stable Referrals: JEANIE CAMPBELL MD (PCP) ONELIA THAYER MD May 14, 2025 12:44
[2025-05-14 12:51] LABS: IMMATURE GRANULOCYTE ABSOLUTE 0.01 K/uL (0-1); NUCLEATED RED BLOOD CELLS 0.0 % (0.0-0.19); PLATELET COUNT (AUTO) 175 K/uL (130-400); RED BLOOD CELL COUNT(AUTO) 4.50 MIL/uL (4.00-5.50); RED CELL DISTRIBUTION WIDTH 12.7 % (11.0-15.5); WHITE BLOOD COUNT (AUTO) 8.0 K/uL (4.8-10.8)
[2025-05-14 13:02] LABS: CREATININE 1.1 mg/dL (0.5-1.0); GLOMERULAR FILTR. RATE CALC 51.0 mL/min (>90); GLUCOSE,RANDOM 149.0 mg/dL (70-105); INR 1.0 (0.85-1.15); SODIUM SERUM 141.0 mmol/L (136-145); UREA NITROGEN, BLOOD 15.0 mg/dL (7-18)
[2025-05-14 13:15] LABS: APPEARANCE,URINE CLEAR (CLEAR); GLUCOSE, URINE (UA) NEGATIVE (NEGATIVE); LEUKOCYTE ESTERASE ,URINE NEGATIVE Leu/uL (NEGATIVE); NITRATE,URINE NEGATIVE (NEGATIVE); OCCULT BLOOD,URINE NEGATIVE (NEGATIVE)
[2025-05-14 13:26] LABS: ADD UA MICROSCOPIC NO
[2025-05-14] MEDS: 0.9% NACL 500ML IV.SOLN 500 ML IV ONE (13:39)
--- NOTE | 2025-05-14 13:49 | HMCIMG ---
EXAM: CR Chest, 1 View. CLINICAL HISTORY: CP COMPARISON: 02/14 16:37 EDT CR - CHEST 1VW FINDINGS: Stable appearance since prior exam. LUNGS: There is no mass, infiltrate, or acute pulmonary abnormality. PLEURAL SPACES: No evidence of pleural effusion or pneumothorax. MEDIASTINUM: The cardiomediastinal silhouette is within normal limits. Prior median sternotomy and CABG. BONES: No acute osseous abnormality. IMPRESSION: Stable chest. No acute cardiopulmonary pathology is evident. /[place]
--- NOTE | 2025-05-14 14:10 | EKG ---
[facility] Test Date: 2025-05-14 Test Time: 12:18:45 Pat Name: KATHRYN BURCH Department: [facility] Room: 319 Gender: F Freight Booker: [id number] : 1945 Requested By: ONELIA THAYER Order Number: [id number] Reading MD: Clint Justin Measurements Intervals [place] Rate: 83 P: 31 IA: 166 QRS: 136 QRSD: 131 T: 45 QT: 398 QTc: 468 Interpretive Statements Sinus rhythm RBBB and LPFB Compared to ECG 02/14/2025 16:09:04 No significant changes Electronically Signed On 05-15-2025 10:55:54 CDT by Clint Justin Please click the below link to view image of tracing.
[2025-05-14] MEDS ORDERED: ACET-2079 PO (14:43)
[2025-05-14] MEDS ORDERED: INSU100V37 SQ (14:43)
[2025-05-14] MEDS ORDERED: NACL1 PO (14:43)
[2025-05-14] MEDS ORDERED: AZEL137S11 NS (14:43)
[2025-05-14] MEDS: 0.9%NACL 1000ML 1,000 ML IV SCH (16:06)
--- NOTE | 2025-05-14 16:19 | NUR ---
DCP:HOME Pt currently lives at home with her Denver Weber [phone]. Pt does not have any DME or home health services. Pt does have a provider that goes to the home 3 hrs a day and assists with home management and meals. PCP is Dr. Idalmis Bhardwaj and uses [facility] for any RX needs. At [place] pt will want to go home and family can assist with transportation. Addendum: 05/14/25 at 1620 by BREN ARCHIBALD SS Amended: Links added.
[2025-05-14] MEDS ORDERED: LACTULOSE 20 GM/30 ML UDCUP PO PRN (17:00)
[2025-05-14] MEDS ORDERED: guaiFENesin-DM 200/20MG 10ML PO PRN (17:00)
[2025-05-14] MEDS ORDERED: ALBUTEROL INHALER 90MCG/INH IH PRN (17:00)
--- NOTE | 2025-05-14 17:15 | HP ---
HISTORY AND PHYSICAL Date of Visit: May 14, 2025 Time of Visit: 17:06 ADMISSION DATE: May 14, 2025 at 14:40 CC: CHEST PAIN HPI: THIS IS A 79 YR OLD WOMAN WITH HISTORY OF CAD HYPERLIPIDEMIA CHRONIC NEUROGENIC ORTHOSTATIC HYPOTENSION AND LUMBAR STENOSIS WHO PRESENTED COMPLAINING OF CHEST PAIN. SHE WAS AT HOME IN THE MORNING AND THE PAIN INTENSIFIED AND DESCRIBED A 10 / 10 IN NATURE AND DURATION WAS MORE THAN 1 HOUR AND WAS ON HER LEFT SIDE OF HER CHEST AND RADIATED TO HER SHOULDER AND HER UPPER THORACIC BACK. SHE DENIED ANY COUGH CONGESTION FEVER CHILLS NAUSEA VOMITING VOMITING DIARRHEA ABDOMINAL PAIN. 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 SHE DENIES SOB PALPITATIONS PND LEG SWELLING AND REPORTS COMPLIANCE WITH HER MEDICATIONS. 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 HYPERLIPIDEMIA - MIXED MIGRAINE HEADACHE WITH AURA COPD - CHRONIC OBS, EX SMOKER LUMBAR BACK SURGERY - 1977, CHRONIC LBP AND LUMBAR DISC DISEASE OTHER SPECIFIED DISORDERS OF ARTERIES AND ARTERIOLES RELATED TO CAROTID DISEASE - - CAROTID STENOSIS - - LEFT 50-70%, R 50%-70% - 08/30 ATHEROSCLEROSIS OF THE AORTA ATHEROSCLEROSIS OF LEGS / PVD CHRONIC NEUROGENIC ORTHOSTATIC HYPOTENSION SOCIAL HISTORY: LIVES LOCALLY WITH NO ALCOHOL TOBACCO USE AND IS AN EX SMOKER FAMILY HISTORY: + DM HTN DEMENTIA AND CVD * Patient History: Family history: Alzheimer's disease SISTER Family history: Cardiovascular disease SISTER SISTER SISTER SISTER Family history: Diabetes mellitus BROTHER SISTER SISTER SISTER SISTER Family history: Hypertension MOTHER FATHER BROTHER BROTHER BROTHER SISTER SISTER SISTER SISTER SISTER SISTER SISTER DAUGHTER SON No Family History of: Cancer Carcinomas Chronic obstructive lung disease Immunocompromised state Stroke Sudden Allergies: Coded Allergies: No Known Drug Allergies (Unverified Allergy, Unknown, 12/18/17) Scheduled Aspirin (Aspirin EC), 81 MG PO DAILY, (Reported) Azelastine HCl (Azelastine HCl), 2 SPRAY NS BID Dulaglutide (Trulicity), 0.5 ML SQ QWEEK Fludrocortisone Acetate (Fludrocortisone Acetate), 2 TAB PO DAILY Fluticasone/Umeclidin/Vilanter (Trelegy Ellipta 100-62.5-25), 1 PUFF IH DAILY Insulin Degludec (Tresiba), 13 UNIT SQ DAILY Magnesium Oxide (Magnesium), 1 TAB PO DAILY Nitroglycerin (Nitrostat), 1 TAB SL AD Pantoprazole Sodium (Pantoprazole Sodium), 40 MG PO HS, (Reported) Potassium Chloride (Potassium Chloride), 1 TAB PO BID Rosuvastatin Calcium (Rosuvastatin Calcium), 20 MG PO DAILY Scheduled PRN Acetaminophen with Codeine (Acetaminophen-Cod #3 Tablet), 0.5 TAB PO DAILY PRN for pain Albuterol Sulfate (Ventolin Hfa), 18 GM IH Q4HPRN PRN for SHORTNESS OF BREATH, (Reported) Sodium Chloride (NaCl), 1 TAB PO DAILY PRN for SBP<100 Discontinued Medications Hydralazine HCl (Hydralazine HCl), 1 TAB PO TID PRN for IF SBP GREATER THAN 140 Loratadine (Loratadine), 1 TAB PO DAILY PRN for NASAL CONGESTION Rosuvastatin Calcium (Rosuvastatin Calcium), 20 MG PO HS, (Reported) Review of Systems Normal Constitutional:, Normal Eyes:, Normal Ear/Nose/Mouth/Throat, Normal Respiratory:, Normal Gastrointestinal:, Normal Genitourinary:, Normal Integumentary:, Normal Musculoskeletal:, Normal Neurological:, Normal Psychological:, Normal Endocrine:, Normal Hematologic/Lymphatic:, Normal Allergic/Immunologic:; Abnormal Cardiovascular: (RFER TO HPI) Physical Exam Vital Signs Vital Signs Date Time Temp Pulse Resp B/P (MAP) Pulse Ox O2 Delivery O2 Flow Rate FiO2 05/14/25 12:15 97.5 96 18 84/42 99 Room Air 0 05/14/25 12:29 21 Appearance: Obese Eyes: Clear, PERRL Ear/Nose/Mouth/Throat: Oropharynx WNL Neck: Symmetric, trach midline, Thyroid WNL Cardiovascular: PMI WNL, Regular Rate, Regular Rhythm Respiratory: No Retractions, Lungs clear G.I.: Normal bowel sounds, No pain w/ palpations, No rebound tenderness Lymphatic: No lymphadenopathy neck Musculoskeletal: Normal ROM, Strength/Tone WNL Skin: No rash/ulcers Psychology: Insight WNL, Orientation WNL, Memory WNL, Affect WNL Diagnostics Laboratory Tests Test 05/14/25 12:31 05/14/25 12:50 05/14/25 12:55 05/14/25 13:31 Range/Units White Blood Count 8.0 4.8-10.8 K/uL Red Blood Count 4.50 4.00-5.50 MIL/uL Hemoglobin 13.7 12.0-16.0 g/dL Hematocrit 40.3 36-48 % Mean Corpuscular Volume 89.6 79-99 fL Mean Corpuscular Hemoglobin 30.4 27.0-33.0 pg Mean Corpuscular Hemoglobin Concent 34.0 32.0-36.0 g/dL Red Cell Distribution Width 12.7 11.0-15.5 % Platelet Count 175 130-400 K/uL Mean Platelet Volume 12.5 7.5-10.5 fL Immature Granulocyte % (Auto) 0.1 0-1 % Neutrophils (%) (Auto) 54.3 40.0-77.0 % Lymphocytes (%) (Auto) 35.3 21.0-51.0 % Monocytes (%) (Auto) 5.0 3.0-13.0 % Eosinophils (%) (Auto) 4.8 0.0-8.0 % Basophils (%) (Auto) 0.5 0.0-5.0 % Neutrophils # (Auto) 4.4 1.8-7.7 K/uL Lymphocytes # (Auto) 2.8 1.0-4.8 K/uL Monocytes # (Auto) 0.4 0.1-1.0 K/uL Eosinophils # (Auto) 0.38 0.00-0.70 K/uL Basophils # (Auto) 0.04 0.00-0.20 K/uL Absolute Immature Granulocyte (auto 0.01 0-1 K/uL Nucleated Red Blood Cells 0.0 0.0-0.19 % Prothrombin Time 10.6 9.6-11.6 SEC Prothromb Time International Ratio 1.00 0.85-1.15 Sodium Level 141 136-145 mmol/L Potassium Level 5.1 3.5-5.1 mmol/L Chloride Level 106 101-111 mmol/L Carbon Dioxide Level 24 21-32 mmol/L Blood Urea Nitrogen 15 7-18 mg/dL Creatinine 1.1 0.5-1.0 mg/dL Glomerular Filtration Rate Calc 51 >90 mL/min Random Glucose 149 70-105 mg/dL Total Calcium 8.3 8.5-10.1 mg/dL Magnesium Level 2.10 1.80-2.40 mg/dL Troponin I High Sensitivity 10 9 4-50 ng/L B-Type Natriuretic Peptide 66 0-100 pg/mL Urine Color LIGHT-YELLOW YELLOW Urine Appearance CLEAR CLEAR Urine pH 5.5 5.0-8.0 Urine Specific [place]ro 1.010 1.001-1.031 Urine Protein NEGATIVE NEGATIVE mg/dL Urine Glucose (UA) NEGATIVE NEGATIVE mg/dL Urine Ketones NEGATIVE NEGATIVE mg/dL Urine Occult Blood NEGATIVE NEGATIVE Urine Nitrate NEGATIVE NEGATIVE Urine Bilirubin NEGATIVE NEGATIVE mg/dL Urine Urobilinogen 0.2 0.2-1.0 mg/dL Urine Leukocyte Esterase NEGATIVE NEGATIVE Allyson/uL Test 05/14/25 15:20 05/14/25 16:37 Range/Units Troponin I High Sensitivity 10 4-50 ng/L Whole Blood Glucose 110 70-110 MG/DL Assessment/Plan Assessment/Plan ASSESSMENT: THIS IS A 79 YR OLD WOMAN WITH HISTORY OF GERD/CHRONIC GASTRITIS MAJOR DEPRESSION, MILD, SINGLE EPISODE GENERALIZED ANXIETY D/O DEGENERATIVE JOINT DISEASE - MULT SITES 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 CHF EF 45 % CAD [place] S/P 5V CABG 1999, REDO CABG 3V 2003 S/P CARDIAC STENTS X 3 -2000 CHRONIC STABLE [place]GINA KEO SCAN AND HEART CATH - PATENT GRAFTS X 4 AND STENT - EF 45 % -01/28 REPEAT HEART CATH 08/2022 - -SEVERE CAD WITH 4 OU TO4 PATENT GRAFTS LVH W DIASTOLIC 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 HYPERLIPIDEMIA - MIXED MIGRAINE HEADACHE WITH AURA COPD - CHRONIC OBS, EX SMOKER LUMBAR BACK SURGERY - 1977, CHRONIC LBP AND LUMBAR DISC DISEASE OTHER SPECIFIED DISORDERS OF ARTERIES AND ARTERIOLES RELATED TO CAROTID DISEASE - - CAROTID STENOSIS - - LEFT 50-70%, R 50%-70% - 08/30 ATHEROSCLEROSIS OF THE AORTA ATHEROSCLEROSIS OF LEGS / PVD CHRONIC NEUROGENIC ORTHOSTATIC HYPOTENSION SHE PRESENTED WITH ATYPICAL CHEST PAIN AND HYPOTENSION PLAN: HAS BEEN HYDRATED AND HEMODYNAMICALLY STABLE CONT SERIAL CARDIAC ENZYMES TO R/O MYOCARDIAL INFARCTION CONT ASPIRIN AND STATIN THERAPY PERMISSIVE MILD HYPERTENSIVE DUE TO PROBLEMS WITH ORTHOSTATIC HYPOTENSION IN THE PAST RESUME FLUDROCORTISONE FOR NEUROGENIC ORTHOSTATIC HYPOTENSION R/O ANY OTHER INFECTIONS SUPPLEMENT ELECTROLYTES MONITOR GLUCOSE AND ADJUST INSULIN AND OHG NEEDED INCREASE DIET AND AMBULATION TOLERATED LOVENOX FOR DVT PROPHYLAXIS CONT PPI FOR STRESS ULCER PROPHYLAXIS ANSWERED ALL QUESTIONS FOR PATIENT AND DAUGHTER AT BEDSIDE JEANIE CAMPBELL MD May 14, 2025 17:15
[2025-05-14] MEDS ORDERED: PoTASSium chl 10% ELIXIR 20MEQ 20 MEQ/15 ML UDCUP PO PRN (17:30)
[2025-05-14] MEDS ORDERED: DEXTROSE 50%-WATER 50 ML DISP.SYRIN IV PRN (17:30)
[2025-05-14] MEDS ORDERED: GLUCAGON 1MG KIT 1 MG ML IM PRN (17:30)
[2025-05-14] MEDS ORDERED: PoTASSium chloRIDE 20MEQ ER 20 MEQ ERTAB PO PRN (17:30)
--- NOTE | 2025-05-14 19:11 | NUR ---
PT CARE ASSUMED AT THIS TIME
[2025-05-14] MEDS: PoTASSium chloRIDE 20MEQ ER 20 MEQ ERTAB PO SCH (21:15)
--- NOTE | 2025-05-14 21:22 | NUR ---
ATTEMPT TO GIVE REPORT. NOT SUCCESSFUL.
--- NOTE | 2025-05-14 21:51 | NUR ---
REPORT GIVEN TO NURSE GAMBLE AT THIS TIME
--- NOTE | 2025-05-14 22:05 | NUR ---
PATIENT ARRIVED TO UNIT VIA STRETCHER, SELF TRANSFERED TO BED. EDUCATED ON SAFETY PRECAUTIONS. AT BEDSIDE.
[2025-05-14 22:10] VITALS: O2SAT 98
--- NOTE | 2025-05-14 23:59 | NUR ---
CALL PLACED TO REGARDING PATIENT WITH ELEVATED BP 194/90 AFTER RECEIVING HYDRALAZINE PO, PATIENT DENIES PAIN. RECEIVED TELEPHONE ORDERS AND READ BACK FOR NITRO PASTE 1 INCH QID, PER MD MAY INCREASE TO 2 INCH IF SBP DOES NOT GO DOWN AND AMBIEN 5MG PRN ORDERS NOTED AND CARRIED OUT.
[2025-05-15] VITALS (13 sets, daily range): BP systolic 120–195; BP diastolic 56–94; PULSE 52–83; RESP 16–20; TEMP 97.4–98.3; O2SAT 97
[2025-05-15] MEDS: NITROGLYCERIN 1GM OINT 1 INCH/1GM TD SCH (00:17)
[2025-05-15] MEDS: NITROGLYCERIN 1GM OINT 1 INCH/1GM TD ONE (01:36)
--- NOTE | 2025-05-15 01:36 | NUR ---
one time dose of extra 1 inch of nitro paste administered due to bp of 194/81,192/90, patient continues to deny pain or any other discomfort. Will continue to monitor and recheck BP.
[2025-05-15] MEDS: ENOXAPARIN SODIUM 30 MG/0.3 ML SQ SCH (09:00)
[2025-05-15] MEDS: MAGNESIUM OXIDE 400 MG TABLET PO SCH (09:00)
[2025-05-15] MEDS: FLUDROCORTISONE ACETATE 0.1 MG TABLET PO SCH (09:00)
[2025-05-15] MEDS: ASPIRIN 81 MG EC TAB PO SCH (09:00)
[2025-05-15] MEDS: REGADENOSON 0.4 MG/5 ML PF SYG IVP ONE (09:08)
--- NOTE | 2025-05-15 10:56 | EKG ---
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
[2025-05-15] MEDS: MAG/ALUM/SIMETH 30 ML UDCUP PO PRN (14:09)
--- NOTE | 2025-05-15 15:31 | HMCSR ---
APPROVED REPORT Height: 5 ft 4in Weight: 139 lbs TEST INDICATIONS Chest Pain The imaging protocol used to acquire images was Rest Tc-99m/stress Tc-99m 1 day Consent: The procedure was explained and understood by the patient. Informerd consent was witnessed Brianne Hays First, low dose rest was performed then high dose stress. RESTING DATA: The resting ekg shows: NSR Rest SPECT myocardial perfusion imaging was performed in supine position minutes following the intra venous injection of 11 mCi of Tc-99 Sestamibi. Time of rest injection: 06:15: Date: 05/15/2025 PHARMACOLOGIC STRESS: Pharmacologic stress test was performed by injecting regadenoson 0.4 mg IV push followed by the intra venous injection of 30 mCi of Tc-99 Sestamibi. Time of stress injection: 08:10: Date: 05/15/2025 Heart Rate at time of stress injection: 82 bpm. Gated Stress SPECT was performed 60 minutes after stress injection. The images were gated to evaluate regional wall motion and calculate left ventricular ejection fracti on. STRESS DETAILS Reason for Termination: Infusion complete Stress Symptoms: Flushing Max HR Achieved: 96 bpm % of APMHR Achieved: 80 Max Blood Pressure: 186/86 mmHg Stress ECG: NSR Conclusion Inferior and lateral infarct No ischemia LV ejection fraction 635 Normal LV size at rest and stress Hypokinetic lateral wall No increased lung uptake
[2025-05-15] MEDS ORDERED: HYDR25TA67 PO (18:02)
--- NOTE | 2025-05-15 18:12 | DS ---
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 CHF EF 45 % CAD [place] S/P 5V CABG 1999, REDO CABG 3V 2003 S/P CARDIAC STENTS X 3 -2000 CHRONIC STABLE ANGINA KEO SCAN AND HEART CATH - PATENT GRAFTS X 4 AND STENT - EF 45 % -01/28 REPEAT HEART CATH 08/2022 - -SEVERE CAD WITH 4 OU TO4 PATENT GRAFTS LVH W DIASTOLIC 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 LUNGS: There is no mass, infiltrate, or acute pulmonary abnormality. PLEURAL SPACES: No evidence of pleural effusion or pneumothorax. MEDIASTINUM: The cardiomediastinal silhouette is within normal limits. Prior median sternotomy and CABG. BONES: No acute osseous abnormality. IMPRESSION: Stable chest. No acute cardiopulmonary pathology is evident. PROCEDURES: LEXISCAN STRESS TEST Conclusion Inferior and lateral infarct No ischemia LV ejection fraction 635 Normal LV size at rest and stress Hypokinetic lateral wall No increased lung uptake HOSPITAL COURSE: THIS IS A 79 YR OLD WOMAN WITH THE ABOVE PMH WHO PRESENTED WITH ACUTE ONSET OF SEVERE CHEST PAINS AND HYPOTENSION. SHE WAS TREATED WITH IVF HYDRATION, RULED OUT FOR AN ACUTE INFECTION WELL AN ACUTE MYOCARDIAL INFARCTION. HER HYPOTENSION RESOLVED AND THEN STARTED TO HAVE UNCONTROLLED HYPERTENSION AND TREATED WITH PRN HYDRALAZINE. HER CHEST PAIN RESOLVED WITHOUT RECURRENCE AND HAD A FOLLOW UP LEXISCAN STRESS TEST THE FOLLOWING MORNING WHICH WAS NEGATIVE. SHE WAS THEN DISCHARGED IN STABLE CONDITION TO FOLLOW UP AN OUTPATIENT. DIET: HEART HEALTHY ACTIVITY: PROGRESSIVE AMBULATION CONDITION: STABLE EQUIPMENT: NONE FOLLOW UP APPOINTMENT(S): DR BHARDWAJ IN 2-5 DAYS DISPOSITION: HOME CODE STATUS: FULL MEDICATION RECONCILIATION : Home Medications were reconciled with hospital medications upon discharge and discussed with patient and/or responsible constitution party. HYDRALAZINE 25 MG 0.5 TAB PO TID PRN SBP > 160 ^ Home Meds Active Scripts Hydralazine HCl (Hydralazine HCl) 25 Mg Tablet, 0.5 TAB PO TID PRN for IF SBP GREATER THAN 160, #45 TAB 0 Refills Prov:JEANIE BHARDWAJ MD 05/15/25 Azelastine HCl (Azelastine HCl) 137 Mcg (0.1 %) Brandt.pump, 2 SPRAY NS BID for 30 Days, #30 ML 0 Refills Prov:JEANIE BHARDWAJ MD 05/14/25 Sodium Chloride (NaCl) 1,000 Mg Tab, 1 TAB PO DAILY PRN for SBP<100 for 90 Days, #90 TAB 0 Refills Prov:JEANIE BHARDWAJ MD 05/14/25 Insulin Degludec (Tresiba) 100 Unit/Ml Vial, 13 UNIT SQ DAILY, #60 VIAL 1 Refill Prov:JEANIE BHARDWAJ MD 05/14/25 Acetaminophen with Codeine (Acetaminophen-Cod #3 Tablet) 300 Mg-30 Mg Tablet, 0.5 TAB PO DAILY PRN for pain, #28 TAB 0 Refills Prov:JEANIE BHARDWAJ MD 05/14/25 Fluticasone/Umeclidin/Vilanter (Trelegy Ellipta 100-62.5-25) 100-62.5 Blst.w.dev, 1 PUFF IH DAILY for 30 Days, #1 EACH 0 Refills Prov:JEANIE BHARDWAJ MD 02/14/25 Dulaglutide (Trulicity) 0.75 Mg/0.5 Ml Pen.injctr, 0.5 ML SQ QWEEK for 28 Days, #2 ML 0 Refills Prov:JEANIE BHARDWAJ MD 02/14/25 Rosuvastatin Calcium (Rosuvastatin Calcium) 20 Mg Tablet, 20 MG PO DAILY, #90 TAB Prov:JEANIE BHARDWAJ MD 02/14/25 Potassium Chloride (Potassium Chloride) 20 Meq Tab.er.prt, 1 TAB PO BID for 30 Days, #60 TAB 0 Refills Prov:JEANIE BHARDWAJ MD 02/14/25 Nitroglycerin (Nitrostat) 0.4 Mg Tab.subl, 1 TAB SL AD for chest pain, #25 TAB 0 Refills 1st sign of attack; may repeat every 5 mins; if pain persists after 3 in 15 min, medical attention is recommended Prov:JEANIE BHARDWAJ MD 02/14/25 Magnesium Oxide (Magnesium) 250 Mg Tablet, 1 TAB PO DAILY for 30 Days, #30 TAB 0 Refills Prov:JEANIE BHARDWAJ MD 02/14/25 Fludrocortisone Acetate (Fludrocortisone Acetate) 0.1 Mg Tablet, 2 TAB PO DAILY for 30 Days, #30 TAB 0 Refills Prov:JEANIE BHARDWAJ MD 02/14/25 Reported Medications Albuterol Sulfate (Ventolin Hfa) 90 Mcg Hfa.aer.ad, 18 GM IH Q4HPRN PRN for SHORTNESS OF BREATH, INHALER 09/28/23 Aspirin (Aspirin EC) 81 Mg Tablet.dr, 81 MG PO DAILY, TAB 09/28/23 Pantoprazole Sodium (Pantoprazole Sodium) 40 Mg Tablet.dr, 40 MG PO HS, TAB 08/15/22 Discontinued Reported Medications Rosuvastatin Calcium (Rosuvastatin Calcium) 20 Mg Tablet, 20 MG PO HS, TAB 12/09/21 Discontinued Scripts Loratadine (Loratadine) 10 Mg Tablet, 1 TAB PO DAILY PRN for NASAL CONGESTION for 30 Days, #30 TAB 0 Refills Prov:JEANIE BHARDWAJ MD 02/14/25 Hydralazine HCl (Hydralazine HCl) 25 Mg Tablet, 1 TAB PO TID PRN for IF SBP GREATER THAN 140 for 30 Days, #90 TAB 0 Refills Prov:JEANIE BHARDWAJ MD 02/14/25 JEANIE BHARDWAJ MD May 15, 2025 18:12
== END 2025-05-15 18:50 | disposition home or self-care (01) ==
LOC: EDH 12:13 → EDHIP 14:40 → 3CH 22:11
PROVIDERS: ADMIT Internal Medicine; ATTEND Internal Medicine
DX: R07.89 Other chest pain (principal); I13.0 Hypertensive heart and chronic kidney disease with heart failure and stage 1 through stage 4 chronic kidney disease, or unspecified chronic kidney disease; E11.22 Type 2 diabetes mellitus with diabetic chronic kidney disease; E11.49 Type 2 diabetes mellitus with other diabetic neurological complication; E11.51 Type 2 diabetes mellitus with diabetic peripheral angiopathy without gangrene; E78.00 Pure hypercholesterolemia, unspecified; F32.0 Major depressive disorder, single episode, mild; F41.1 Generalized anxiety disorder; G43.109 Migraine with aura, not intractable, without status migrainosus; I50.9 Heart failure, unspecified; J44.9 Chronic obstructive pulmonary disease, unspecified; N18.2 Chronic kidney disease, stage 2 (mild); K21.9 Gastro-esophageal reflux disease without esophagitis; I95.1 Orthostatic hypotension; R42 Dizziness and giddiness; M48.061 Spinal stenosis, lumbar region without neurogenic claudication; M54.50 Low back pain, unspecified; M19.90 Unspecified osteoarthritis, unspecified site; Z79.4 Long term (current) use of insulin; Z79.85 Long-term (current) use of injectable non-insulin antidiabetic drugs; Z79.899 Other long term (current) drug therapy; Z87.891 Personal history of nicotine dependence; Z95.1 Presence of aortocoronary bypass graft; Z95.5 Presence of coronary angioplasty implant and graft
CPT/HCPCS: 99285; 83735; 84484 ×3; 80048; 83880; 85025; 85610; 82948 ×5; 81003; 36415; 71045; 93005 ×2; 96372; 93017; 78452; G0378 ×26; J1650; J2785; A9500 ×2

== ENCOUNTER 2025-07-02 17:39 | Emergency (ER) | payer OTHER, MEDICARE ==
[~2025-07-02] VITALS: Ht 162.6 cm; Wt 65.3 kg
[~2025-07-02 17:39] MED LIST changes: +AZEL137S11 NS; -LORA10TA7 PO
--- NOTE | 2025-07-02 18:04 | ERN ---
ED Note History of Present Illness Stated Complaint: HYPERTENSION, CHEST PRESSURE Chief Complaint: Hypertension Time Seen by MD: 17:40 Time Seen by Midlevel: 17:40 Dictation: The patient is a 79-year-old female with a history of diabetes, CAD, CABG who presents to the emergency department with complaints of chest tightness onset 430 p.m. associated with elevated blood pressure. Patient reports her blood pressure at home was 199/96. Reports she takes hydralazine 25 mg t.i.d. and reports compliant with medication. Patient denies any headache, dizziness, shortness of breath, nausea or vomiting. Allergies: Coded Allergies: No Known Drug Allergies (Unverified Allergy, Unknown, 12/18/17) Home Meds Active Scripts Hydralazine HCl (Hydralazine HCl) 25 Mg Tablet, 0.5 TAB PO TID PRN for IF SBP GREATER THAN 160, #45 TAB 0 Refills Prov:JEANIE CAMPBELL MD 05/15/25 Azelastine HCl (Azelastine HCl) 137 Mcg (0.1 %) [place].pump, 2 SPRAY NS BID for 30 Days, #30 ML 0 Refills Prov:JEANIE CAMPBELL MD 05/14/25 Sodium Chloride (NaCl) 1,000 Mg Tab, 1 TAB PO DAILY PRN for SBP<100 for 90 Days, #90 TAB 0 Refills Prov:JEANIE CAMPBELL MD 05/14/25 Insulin Degludec (Tresiba) 100 Unit/Ml Vial, 13 UNIT SQ DAILY, #60 VIAL 1 Refill Prov:JEANIE CAMPBELL MD 05/14/25 Acetaminophen with Codeine (Acetaminophen-Cod #3 Tablet) 300 Mg-30 Mg Tablet, 0.5 TAB PO DAILY PRN for pain, #28 TAB 0 Refills Prov:JEANIE CAMPBELL MD 05/14/25 Fluticasone/Umeclidin/Vilanter (Trelegy Ellipta 100-62.5-25) 100-62.5 Blst.w.dev, 1 PUFF IH DAILY for 30 Days, #1 EACH 0 Refills Prov:JEANIE CAMPBELL MD 02/14/25 Dulaglutide (Trulicity) 0.75 Mg/0.5 Ml Pen.injctr, 0.5 ML SQ QWEEK for 28 Days, #2 ML 0 Refills Prov:JEANIE CAMPBELL MD 02/14/25 Rosuvastatin Calcium (Rosuvastatin Calcium) 20 Mg Tablet, 20 MG PO DAILY, #90 TAB Prov:JEANIE CAMPBELL MD 02/14/25 Potassium Chloride (Potassium Chloride) 20 Meq Tab.er.prt, 1 TAB PO BID for 30 Days, #60 TAB 0 Refills Prov:JEANIE CAMPBELL MD 02/14/25 Nitroglycerin (Nitrostat) 0.4 Mg Tab.subl, 1 TAB SL AD for chest pain, #25 TAB 0 Refills 1st sign of attack; may repeat every 5 mins; if pain persists after 3 in 15 min, medical attention is recommended Prov:JEANIE CAMPBELL MD 02/14/25 Magnesium Oxide (Magnesium) 250 Mg Tablet, 1 TAB PO DAILY for 30 Days, #30 TAB 0 Refills Prov:JEANIE CAMPBELL MD 02/14/25 Fludrocortisone Acetate (Fludrocortisone Acetate) 0.1 Mg Tablet, 2 TAB PO DAILY for 30 Days, #30 TAB 0 Refills Prov:JEANIE CAMPBELL MD 02/14/25 Reported Medications Albuterol Sulfate (Ventolin Hfa) 90 Mcg Hfa.aer.ad, 18 GM IH Q4HPRN PRN for SHORTNESS OF BREATH, INHALER 09/28/23 Aspirin (Aspirin EC) 81 Mg Tablet.dr, 81 MG PO DAILY, TAB 09/28/23 Pantoprazole Sodium (Pantoprazole Sodium) 40 Mg Tablet.dr, 40 MG PO HS, TAB 08/15/22 Past Medical History Past Medical History: CAD, Diabetes-Type II, High Cholesterol, Hypertension Additional Past Medical Hx: vertigo Surgical History: CABG, Other Surgical History Other: BACK SX, KNEE SX Family History: Negative Social History: Negative, Lives with family History: Not Applicable RN Note Reviewed/Agreed w/PFSH: Yes Review of System Dictation Constitutional: Negative for fever,chills, and weight loss Eyes: Negative for injury, pain,redness, and discharge ENT: Negative for injury,pain or swelling Cardiovascular: Negative for , palpitations, and edema positive for chest pain Respiratory: Negative for shortness of breath, cough, and wheezing, Abdomen/GI: Negative for abdominal pain, nausea, vomiting, diarrhea, and constipation Back: Negative for injury and pain : Negative for injury, bleeding and discharge MS/Extremity: Negative for injury and deformity Skin: Negative for rash, and discoloration Neuro: Negative for headache, weakness, numbness, tingling, and seizure Psych: Negative for suicide ideation, homicidal ideation, and hallucinations Initial Vital Sign VS Vital Signs Date Time Temp Pulse Resp B/P (MAP) Pulse Ox O2 Delivery O2 Flow Rate FiO2 07/02/25 17:40 98.2 80 18 143/83 97 07/02/25 17:45 Room Air* 0 21 Physical Exam Dictation Vital Signs reviewed General Appearance: Alert, oriented x 3, no acute distress, well developed, nourished. Head and Face: non-traumatic. Eyes: PERRL, pink conjunctivas, eyelid no trauma, anterior chamber with arcus senilis. Ears: Pinnas intact and no signs of trauma or erythema ear canals clear and no discharge TM no erythema Nose: No discharge, no bleeding. Oropharynx: Mouth normal, tongue pink. pharynx clear,no erythema, tonsils no exudates, no abscesses noted, mucous membrane moist Neck: Supple, non-tender, no thyromegaly, no masses, no JVD, no bruits Breast:Deferred Chest:No tenderness, no crepitus, no paradoxical movement, no retractions Lungs:Clear, well-ventilated, symmetric, no rales, no wheezing, no rhonchi, no stridor, good breath sounds bilaterally Heart: Regular rate, regular rhythm, no murmur, no gallops Vascular: no peripheral edema, Abdomen: Soft, positive bowel sounds, nondistended, no guarding, nontender, no rebound, no masses no hepatomegaly, no splenomegaly, no Manrique's sign, no hernias. Rectal: Deferred Genital: Deferred Neurological: Normal speech, motor function intact, sensory function intact Musculoskeletal: Neck nontender, full range of motion, back nontender, full range of motion, Extremities: nontender, full range of motion Skin: Color pink, dry, no turgor, no rash, no lacerations, no abrasions, no contusions. Lymphatic: Deferred Results (Laboratory/Radiology) Laboratory/Radiology Laboratory Tests Test 07/02/25 18:06 07/02/25 19:35 White Blood Count 7.8 K/uL (4.8-10.8) Red Blood Count 4.31 MIL/uL (4.00-5.50) Hemoglobin 13.0 g/dL (12.0-16.0) Hematocrit 39.0 % (36-48) Mean Corpuscular Volume 90.5 fL (79-99) Mean Corpuscular Hemoglobin 30.2 pg (27.0-33.0) Mean Corpuscular Hemoglobin Concent 33.3 g/dL (32.0-36.0) Red Cell Distribution Width 13.1 % (11.0-15.5) Platelet Count 148 K/uL (130-400) Mean Platelet Volume 11.4 fL (7.5-10.5) H Immature Granulocyte % (Auto) 0.1 % (0-1) Neutrophils (%) (Auto) 69.9 % (40.0-77.0) Lymphocytes (%) (Auto) 21.7 % (21.0-51.0) Monocytes (%) (Auto) 5.4 % (3.0-13.0) Eosinophils (%) (Auto) 2.4 % (0.0-8.0) Basophils (%) (Auto) 0.5 % (0.0-5.0) Neutrophils # (Auto) 5.4 K/uL (1.8-7.7) Lymphocytes # (Auto) 1.7 K/uL (1.0-4.8) Monocytes # (Auto) 0.4 K/uL (0.1-1.0) Eosinophils # (Auto) 0.19 K/uL (0.00-0.70) Basophils # (Auto) 0.04 K/uL (0.00-0.20) Absolute Immature Granulocyte (auto 0.01 K/uL (0-1) Nucleated Red Blood Cells 0.0 % (0.0-0.19) Prothrombin Time 10.9 SEC (9.6-11.6) Prothromb Time International Ratio 1.03 (0.85-1.15) Activated Partial Thromboplast Time 25.9 SEC (26.3-35.5) L Sodium Level 140 mmol/L (136-145) Potassium Level 3.6 mmol/L (3.5-5.1) Chloride Level 107 mmol/L (101-111) Carbon Dioxide Level 25 mmol/L (21-32) Blood Urea Nitrogen 13 mg/dL (7-18) Creatinine 0.9 mg/dL (0.5-1.0) Glomerular Filtration Rate Calc 65 mL/min (>90) Random Glucose 134 mg/dL (70-105) H Total Calcium 7.9 mg/dL (8.5-10.1) L Magnesium Level 1.90 mg/dL (1.80-2.40) Total Creatine Kinase 55 U/L (21-232) Troponin I High Sensitivity 13 ng/L (4-50) 15 ng/L (4-50) REASON: cp ORDERING PHYSICIAN: LUSI CARLOS CHILD PROCEDURE: CXR1VW - CHEST 1VW EXAM: CR Chest, 1 View. CLINICAL HISTORY: cp COMPARISON: None provided. FINDINGS: LUNGS: No active infiltrate PLEURAL SPACES: No evidence of pleural effusion or pneumothorax. MEDIASTINUM: Cardiac silhouette prominent Status post median sternotomy BONES: No acute osseous abnormality. IMPRESSION: 1. Cardiac silhouette prominent 2. Status post median sternotomy 3. No active infiltrate /[place] Labs Reviewed?: Yes EKG: (+) rhythm (Sinus rhythm) EKG Comment: Date:07/02/2025 Time:1742 Ventricular rate:80 [place] interval:174 QRS duration:133 QT/QTc:416/479 EKG interpretation: Sinus rhythm, right bundle-branch block, Reviewed by ED Attending no STEMI ED Course ED Course Orders Procedure Category Date Status Time Cbc With Differential LAB 07/02/25 Complete 17:58 Chest 1vw RAD 07/02/25 Resulted 17:58 12 Lead Ekg Tracing- EKG 07/02/25 Complete Technical 17:58 Aspirin 81mg Chew Tab PHA 07/02/25 Complete (Aspirin 81mg Chew 18:00 Nitroglycerin 1gm PHA 07/02/25 Complete Oint (Nitroglycerin 1g 18:00 Magnesium LAB 07/02/25 Complete 17:58 Creatine Kinase, Total LAB 07/02/25 Complete 17:58 Troponin I High LAB 07/02/25 Complete Sensitivity 17:58 Basic Metabolic Panel LAB 07/02/25 Complete 17:58 Pantoprazole 40mg Inj PHA 07/02/25 Complete (Protonix 40mg Inj 18:00 Pt And Ptt LAB 07/02/25 Complete 18:01 Hydralazine 20mg Inj PHA 07/02/25 Complete (Apresoline 20mg In 19:00 Troponin I High LAB 07/02/25 Complete Sensitivity 19:08 Current Medications Medications (Trade) Dose Ordered Sig/Adi Route PRN Reason Start Time Stop Time Status Last Admin Dose Admin Aspirin (Aspirin 81mg Chew Tab) 81 mg ONCE ONCE PO 07/02/25 18:00 07/02/25 18:02 DC 07/02/25 18:08 Hydralazine HCl (APRESOLine 20MG INJ) 10 mg ONCE ONCE IV 07/02/25 19:00 07/02/25 19:01 DC 07/02/25 18:41 Nitroglycerin (Nitroglycerin 1gm Oint) 1 inch ONCE ONCE TD 07/02/25 18:00 07/02/25 18:02 DC 07/02/25 18:08 Pantoprazole Sodium (PROTonix 40MG INJ) 40 mg ONCE ONCE IVP 07/02/25 18:00 07/02/25 18:02 DC 07/02/25 18:08 Vital Signs Date Time Temp Pulse Resp B/P (MAP) Pulse Ox O2 Delivery O2 Flow Rate FiO2 07/02/25 20:20 98.2 74 18 137/57 98 Room Air* 0 21 07/02/25 19:00 98.2 76 19 166/63 98 Room Air* 0 21 07/02/25 18:41 74 209/79 07/02/25 17:45 98.2 72 19 207/85 100 Room Air* 0 21 07/02/25 17:40 98.2 80 18 143/83 97 Medical Decision Making MDM MDM: The patient is a 79-year-old female with a history of diabetes, CAD, CABG who presents to the emergency department with complaints of chest tightness onset 430 p.m. associated with elevated blood pressure. Patient reports her blood pressure at home was 199/96. Reports she takes hydralazine 25 mg t.i.d. and reports compliant with medication. Patient denies any headache, dizziness, shortness of breath, nausea or vomiting. CBC showed no leukocytosis, no anemia, chemistry showed no electrolyte imbalance, negative troponin x2, chest x-ray showed no acute pathology. EKGs very similar to previous EKG from May of this year. I discussed labs and imaging with the patient. I discussed with the patient that I wanted to admit her for observation for her chest pain since she has a history of CAD. Patient at this time does not want to be admitted to the hospital and would rather go home to follow up with your primary doctor. Risks and benefits discussed with the patient and patient's . Continue to not want to be admitted to the hospital. Patient is no longer having any chest pain. Patient denies any symptoms. Blood pressure improved with the medication. Patient was admitted here in May for similar reasons. Had a Lexiscan on May 15, 2025 which showed negative for ischemia. On physical exam patient is in no acute distress, nontoxic appearance. Patient will be discharged to follow up with PCP. Patient agrees to return if symptoms worsen. Differential diagnosis: Hypertensive urgency, ACS, costochondritis, pneumonia Need for hospitalization: Patient does not meet criteria for hospitalization. There are no social concerns with this patient. DX & DISP Disposition: Discharge Departure Impression: Primary Impression: Hypertension Additional Impression: Chest pain Condition: Stable Additional Instructions: Your labs were unremarkable. Please follow up with your primary doctor in your personal security specialist. If anything changes please return to ER. FOLLOW-UP WITH PRIMARY CARE PROVIDER IN 1 TO 2 DAYS. TAKE MEDICATIONS DIRECTED HERE IN THE EMERGENCY ROOM. OKAY TO CONTINUE HOME MEDICATIONS UNLESS OTHERWISE DISCUSSED DURING YOUR VISIT IN THE EMERGENCY ROOM TODAY. RETURN TO YOUR NEAREST EMERGENCY ROOM IF SYMPTOMS WORSEN OR IF THERE IS NO IMPROVEMENT. CALL 911 IF YOU NEED IMMEDIATE ASSISTANCE. TAKE TYLENOL [id number] NEEDED AND IF NO CONTRAINDICATIONS ARE PRESENT. INCREASE ORAL HYDRATION. A WOUND CULTURE OR URINE CULTURE WAS ORDERED HERE IN THE EMERGENCY ROOM DEPARTMENT PLEASE FOLLOW-UP WITH PRIMARY CARE PROVIDER AND ADVISE THEM TO GET REPEAT PORTS FROM OUR FACILITY. IF YOU HAD ANY STEVIE WRAP/SPLINTS THAT WERE APPLIED HERE, PLEASE DO NOT REMOVE THEM UNTIL YOU SEE YOUR PRIMARY CARE OR SPECIALTY. Referrals: JEANIE CAMPBELL MD (PCP) Time of Disposition: 20:37 I have reviewed the case, and I agree with, Diagnosis and Plan LUIS CARLOS CHILD Jul 02, 2025 18:04
--- NOTE | 2025-07-02 18:06 | EKG ---
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
[2025-07-02] MEDS: ASPIRIN 81MG CHEW TAB PO ONE (18:08)
[2025-07-02] MEDS: NITROGLYCERIN 1GM OINT 1 INCH/1GM TD ONE (18:08)
[2025-07-02 18:13] LABS: IMMATURE GRANULOCYTE ABSOLUTE 0.01 K/uL (0-1); NUCLEATED RED BLOOD CELLS 0.0 % (0.0-0.19); PLATELET COUNT (AUTO) 148 K/uL (130-400); RED BLOOD CELL COUNT(AUTO) 4.31 MIL/uL (4.00-5.50); RED CELL DISTRIBUTION WIDTH 13.1 % (11.0-15.5); WHITE BLOOD COUNT (AUTO) 7.8 K/uL (4.8-10.8)
[2025-07-02 18:23] LABS: CREATININE 0.9 mg/dL (0.5-1.0); GLOMERULAR FILTR. RATE CALC 65.0 mL/min (>90); GLUCOSE,RANDOM 134.0 mg/dL (70-105); INR 1.03 (0.85-1.15); SODIUM SERUM 140.0 mmol/L (136-145); UREA NITROGEN, BLOOD 13.0 mg/dL (7-18)
[2025-07-02 18:28] LABS: CREATINE KINASE, TOTAL 55.0 U/L (21-232)
--- NOTE | 2025-07-02 20:18 | HMCIMG ---
EXAM: CR Chest, 1 View. CLINICAL HISTORY: cp COMPARISON: None provided. FINDINGS: LUNGS: No active infiltrate PLEURAL SPACES: No evidence of pleural effusion or pneumothorax. MEDIASTINUM: Cardiac silhouette prominent Status post median sternotomy BONES: No acute osseous abnormality. IMPRESSION: 1. Cardiac silhouette prominent 2. Status post median sternotomy 3. No active infiltrate /[place]
[2025-07-02 20:20] VITALS: BP 137/57; PULSE 74; RESP 18; TEMP 98.2; O2SAT 98
== END 2025-07-02 20:45 | disposition home or self-care (01) ==
LOC: EDH 17:39
DX: I10 Essential (primary) hypertension (principal); R07.89 Other chest pain; E11.9 Type 2 diabetes mellitus without complications; I25.10 Atherosclerotic heart disease of native coronary artery without angina pectoris; E78.00 Pure hypercholesterolemia, unspecified; Z79.4 Long term (current) use of insulin; Z79.82 Long term (current) use of aspirin; Z79.899 Other long term (current) drug therapy; Z95.0 Presence of cardiac pacemaker; Z95.1 Presence of aortocoronary bypass graft; Z98.890 Other specified postprocedural states
CPT/HCPCS: 99285; 96374; 71045; 96375; 82550; 83735; 84484 ×2; 80048; 85025; 85610; 85730; 36415; 93005; J0360; J2470

== ENCOUNTER 2025-07-20 21:40 | Emergency (ER) | payer OTHER, MEDICARE ==
[~2025-07-20] VITALS: Ht 162.6 cm; Wt 74.8 kg
--- NOTE | 2025-07-20 22:02 | NUR ---
PT CARE ASSUMED AT THIS TIME
[2025-07-20 22:05] LABS: IMMATURE GRANULOCYTE ABSOLUTE 0.01 K/uL (0-1); NUCLEATED RED BLOOD CELLS 0.0 % (0.0-0.19); PLATELET COUNT (AUTO) 116 K/uL (130-400); RED BLOOD CELL COUNT(AUTO) 3.61 MIL/uL (4.00-5.50); RED CELL DISTRIBUTION WIDTH 13.2 % (11.0-15.5); WHITE BLOOD COUNT (AUTO) 3.3 K/uL (4.8-10.8)
[2025-07-20 22:17] LABS: CREATINE KINASE, TOTAL 207.0 U/L (21-232); CREATININE 0.9 mg/dL (0.5-1.0); GLOMERULAR FILTR. RATE CALC 65.0 mL/min (>90); GLUCOSE,RANDOM 135.0 mg/dL (70-105); SODIUM SERUM 139.0 mmol/L (136-145); UREA NITROGEN, BLOOD 9.0 mg/dL (7-18)
[2025-07-20 23:01] LABS: ADD UA MICROSCOPIC YES; APPEARANCE,URINE CLEAR (CLEAR); GLUCOSE, URINE (UA) NEGATIVE (NEGATIVE); LEUKOCYTE ESTERASE ,URINE 25 Leu/uL (NEGATIVE); NITRATE,URINE NEGATIVE (NEGATIVE); OCCULT BLOOD,URINE NEGATIVE (NEGATIVE)
--- NOTE | 2025-07-20 23:34 | ERN ---
ED Note History of Present Illness Stated Complaint: C/O CP WITH ABDOMINAL PAIN Chief Complaint: Chest Pain Time Seen by MD: 21:58 Dictation: This is a 79-year-old female who presented to the emergency room with her spouse with complaints of chest tightness that started today. She also reported that she has had cold-like symptoms with severe congestion wheezing for the past many days. History of any fever chills or rigors. No discolored sputum. No hemoptysis. Patient denied any PND orthopnea. She recently saw her PCP who gave her cefdinir and benzonatate. The stated that she is not better and hence they came into the ER for further evaluation She also reported blood pressure was slightly high when she she checked at home. She tells me she has a known history of wheezing and reactive airway disease and has trilogy and albuterol at home which she has not not been using on a regular basis Temperature 98.8 pulse 79 respirations 20 blood pressure 181/80 with a pulse oximetry of 96% on room air. She was audibly wheezing during my evaluation Patient has chronic medical problems include diabetes, CAD, CABG Allergies: Coded Allergies: No Known Drug Allergies (Unverified Allergy, Unknown, 12/18/17) Home Meds Active Scripts Albuterol Sulfate (Ventolin Hfa/Proventil Hfa/Proair Hfa) 90 Mcg Puff, 1-2 PUFF IH Q4H PRN for SHORTNESS OF BREATH for 5 Days, #1 INH 0 Refills PHARMACY TO DISPENSE 1 INHALER FOR USE Prov:DWIGHT MCRAE MD 07/21/25 Azithromycin (Azithromycin) 250 Mg Tablet, 1 TAB PO AD for 5 Days, #6 TAB 0 Refills 2 the first day followed by 1 for days 2-5 Prov:DWIGHT MCRAE MD 07/21/25 Prednisone (Prednisone) 20 Mg Tablet, 1 TAB PO AD for 6 Days, #14 TAB 0 Refills TAKE 1 TAB BY MOUTH THREE TIMES PER DAY X3 DAYS, THEN TAKE 1 TAB BY MOUTH TWICE A DAY X2 DAYS, THEN TAKE 1 TAB BY MOUTH ONCE A DAY X1 DAY. Prov:DWIGHT MCRAE MD 07/21/25 Hydralazine HCl (Hydralazine HCl) 25 Mg Tablet, 0.5 TAB PO TID PRN for IF SBP GR EATER THAN 160, #45 TAB 0 Refills Prov:JEANIE CAMPBELL MD 05/15/25 Azelastine HCl (Azelastine HCl) 137 Mcg (0.1 %) Pierce.pump, 2 SPRAY NS BID for 30 Days, #30 ML 0 Refills Prov:JEANIE CAMPBELL MD 05/14/25 Sodium Chloride (NaCl) 1,000 Mg Tab, 1 TAB PO DAILY PRN for SBP<100 for 90 Days, #90 TAB 0 Refills Prov:JEANIE CAMPBELL MD 05/14/25 Insulin Degludec (Tresiba) 100 Unit/Ml Vial, 13 UNIT SQ DAILY, #60 VIAL 1 Refill Prov:JEANIE CAMPBELL MD 05/14/25 Acetaminophen with Codeine (Acetaminophen-Cod #3 Tablet) 300 Mg-30 Mg Tablet, 0.5 TAB PO DAILY PRN for pain, #28 TAB 0 Refills Prov:JEANIE CAMPBELL MD 05/14/25 Fluticasone/Umeclidin/Vilanter (Trelegy Ellipta 100-62.5-25) 100-62.5 Blst.w.dev, 1 PUFF IH DAILY for 30 Days, #1 EACH 0 Refills Prov:JEANIE CAMPBELL MD 02/14/25 Dulaglutide (Trulicity) 0.75 Mg/0.5 Ml Pen.injctr, 0.5 ML SQ QWEEK for 28 Days, #2 ML 0 Refills Prov:JEANIE CAMPBELL MD 02/14/25 Rosuvastatin Calcium (Rosuvastatin Calcium) 20 Mg Tablet, 20 MG PO DAILY, #90 TAB Prov:JEANIE CAMPBELL MD 02/14/25 Potassium Chloride (Potassium Chloride) 20 Meq Tab.er.prt, 1 TAB PO BID for 30 Days, #60 TAB 0 Refills Prov:JEANIE CAMPBELL MD 02/14/25 Nitroglycerin (Nitrostat) 0.4 Mg Tab.subl, 1 TAB SL AD for chest pain, #25 TAB 0 Refills 1st sign of attack; may repeat every 5 mins; if pain persists after 3 in 15 min, medical attention is recommended Prov:JEANIE CAMPBELL MD 02/14/25 Magnesium Oxide (Magnesium) 250 Mg Tablet, 1 TAB PO DAILY for 30 Days, #30 TAB 0 Refills Prov:JEANIE CAMPBELL MD 02/14/25 Fludrocortisone Acetate (Fludrocortisone Acetate) 0.1 Mg Tablet, 2 TAB PO DAILY for 30 Days, #30 TAB 0 Refills Prov:JEANIE CAMPBELL MD 02/14/25 Reported Medications Albuterol Sulfate (Ventolin Hfa) 90 Mcg Hfa.aer.ad, 18 GM IH Q4HPRN PRN for SHORTNESS OF BREATH, INHALER 09/28/23 Aspirin (Aspirin EC) 81 Mg Tablet.dr, 81 MG PO DAILY, TAB 09/28/23 Pantoprazole Sodium (Pantoprazole Sodium) 40 Mg Tablet.dr, 40 MG PO HS, TAB 08/15/22 Past Medical History Past Medical History: Diabetes-Type II, High Cholesterol, Hypertension Additional Past Medical Hx: vertigo Surgical History: Other Surgical History Other: OPEN HEART SX (2003) Family History: Negative Social History: Negative, Lives with family History: Not Applicable RN Note Reviewed/Agreed w/PFSH: Yes Review of System Dictation Constitutional: Negative for fever,chills, and weight loss Eyes: Negative for injury, pain,redness, and discharge ENT: Negative for injury,pain or swelling Cardiovascular: Positive for chest tightness, denied palpitations, and edema Respiratory: Negative for shortness of breath, cough, and wheezing, Abdomen/GI: Negative for abdominal pain, nausea, vomiting, diarrhea, and constipation Back: Negative for injury and pain : Negative for injury, bleeding and discharge MS/Extremity: Negative for injury and deformity Skin: Negative for rash, and discoloration Neuro: Negative for headache, weakness, numbness, tingling, and seizure Psych: Negative for suicide ideation, homicidal ideation, and hallucinations Initial Vital Sign VS Vital Signs Date Time Temp Pulse Resp B/P (MAP) Pulse Ox O2 Delivery O2 Flow Rate FiO2 07/20/25 21:43 98.8 79 20 181/80 96 Room Air 07/20/25 22:04 0 21 Physical Exam Dictation General: awake, alert, NAD Head/Face: Normocephalic, atraumatic Eyes: PERRL, EOMI, vision at baseline ENT: oral cavity clear, TMs clear, no signs of infection Neck: Trachea midline, supple, no nuchal rigidity Cardiovascular: RRR, normal S1/S2, No MRGs, no JVD Respiratory: CTAB, no respiratory distress, No rales or wheezes Abdomen: Soft, non-tender, non-distended, normal bowel sounds, no guarding or rebound. Skin: Warm, dry, normal turgor, no rash MS/Extremity: Pulses equal, no cyanosis, neurovascular intact, FROM Neuro: COAx4, GCS 15, strength 5/5, CN 2-12 intact, normal cerebellar exam, normal gait, Psych: Normal behavior, mood, and affect normal Extremities-trace edema without any palpable cords, Homans sign is negative Results (Laboratory/Radiology) Laboratory/Radiology Laboratory Tests Test 07/20/25 21:58 07/20/25 22:38 White Blood Count 3.3 K/uL (4.8-10.8) L Red Blood Count 3.61 MIL/uL (4.00-5.50) L Hemoglobin 10.9 g/dL (12.0-16.0) L Hematocrit 32.9 % (36-48) L Mean Corpuscular Volume 91.1 fL (79-99) Mean Corpuscular Hemoglobin 30.2 pg (27.0-33.0) Mean Corpuscular Hemoglobin Concent 33.1 g/dL (32.0-36.0) Red Cell Distribution Width 13.2 % (11.0-15.5) Platelet Count 116 K/uL (130-400) L Mean Platelet Volume 11.6 fL (7.5-10.5) H Immature Granulocyte % (Auto) 0.3 % (0-1) Neutrophils (%) (Auto) 56.0 % (40.0-77.0) Lymphocytes (%) (Auto) 31.1 % (21.0-51.0) Monocytes (%) (Auto) 10.8 % (3.0-13.0) Eosinophils (%) (Auto) 1.5 % (0.0-8.0) Basophils (%) (Auto) 0.3 % (0.0-5.0) Neutrophils # (Auto) 1.8 K/uL (1.8-7.7) Lymphocytes # (Auto) 1.0 K/uL (1.0-4.8) Monocytes # (Auto) 0.4 K/uL (0.1-1.0) Eosinophils # (Auto) 0.05 K/uL (0.00-0.70) Basophils # (Auto) 0.01 K/uL (0.00-0.20) Absolute Immature Granulocyte (auto 0.01 K/uL (0-1) Nucleated Red Blood Cells 0.0 % (0.0-0.19) Sodium Level 139 mmol/L (136-145) Potassium Level 2.9 mmol/L (3.5-5.1) *L Chloride Level 102 mmol/L (101-111) Carbon Dioxide Level 28 mmol/L (21-32) Blood Urea Nitrogen 9 mg/dL (7-18) Creatinine 0.9 mg/dL (0.5-1.0) Glomerular Filtration Rate Calc 65 mL/min (>90) Random Glucose 135 mg/dL (70-105) H Total Calcium 7.4 mg/dL (8.5-10.1) L Total Creatine Kinase 207 U/L (21-232) # Troponin I High Sensitivity 29 ng/L (4-50) Urine Color LIGHT-YELLOW (YELLOW) Urine Appearance CLEAR (CLEAR) Urine pH 6.0 (5.0-8.0) Urine Specific [place] 1.009 (1.001-1.031) Urine Protein NEGATIVE mg/dL (NEGATIVE) Urine Glucose (UA) NEGATIVE mg/dL (NEGATIVE) Urine Ketones NEGATIVE mg/dL (NEGATIVE) Urine Occult Blood NEGATIVE (NEGATIVE) Urine Nitrate NEGATIVE (NEGATIVE) Urine Bilirubin NEGATIVE mg/dL (NEGATIVE) Urine Urobilinogen 0.2 mg/dL (0.2-1.0) Urine Leukocyte Esterase 25 Allyson/uL (NEGATIVE) H Urine RBC 2-5 /HPF (0-1) H Urine WBC 2-5 /HPF (0-1) H Urine Bacteria RARE /HPF (None Seen) Labs Reviewed?: Yes EKG Comment: Twelve lead EKG done on 07/20/2025 at 9:45 p.m. showed a heart rate of 77, HI interval 135, QRS 138, QT/QTC 464/527 Impression overall somewhat low voltage, normal sinus rhythm right bundle branch block no acute ST-T elevations noted. Prolonged QT interval EKG rhythm strip showed a normal sinus rhythm intraventricular conduction delay Interpreted by ER MD Dr. Mcrae X-RAY Comment: TEST INDICATIONS Chest Pain The imaging protocol used to acquire images was Rest Tc-99m/stress Tc-99m 1 day Consent: The procedure was explained and understood by the patient. Informerd consent was witnessed by Jerry Hays First, low dose rest was performed then high dose stress. RESTING DATA: The resting ekg shows: NSR Rest SPECT myocardial perfusion imaging was performed in supine position minutes following the intravenous injection of 11 mCi of Tc-99 Sestamibi. Time of rest injection: 06:15: Date: 05/15/2025 PHARMACOLOGIC STRESS: Pharmacologic stress test was performed by injecting regadenoson 0.4 mg IV push followed by the intravenous injection of 30 mCi of Tc-99 Sestamibi. Time of stress injection: 08:10: Date: 05/15/2025 Heart Rate at time of stress injection: 82 bpm. Gated Stress SPECT was performed 60 minutes after stress injection. The images were gated to evaluate regional wall motion and calculate left ventricular ejection fraction. STRESS DETAILS Reason for Termination: Infusion complete Stress Symptoms: Flushing Max HR Achieved: 96 bpm % of APMHR Achieved: 80 Max Blood Pressure: 186/86 mmHg Stress ECG: NSR Conclusion Inferior and lateral infarct No ischemia LV ejection fraction 635 Normal LV size at rest and stress Hypokinetic lateral wall No increased lung uptake DICTATED BY: ADRIAN JARRETT MD DATE: 05/15/25 0656 ELECTRONICALLY SIGNED BY: ADRIAN JARRETT MD DATE: 05/15/25 1531 ED Course ED Course Orders Procedure Category Date Status Time Vital Signs Per CPOE 07/20/25 Transmitted Routine 21:51 Chest 1vw RAD 07/20/25 Resulted 21:51 12 Lead Ekg Tracing- EKG 07/20/25 Logged Technical 21:51 Oxygen By Nc/Pulse Ox CPOE 07/20/25 Transmitted 21:51 Maintain Iv CPOE 07/20/25 Transmitted 21:51 Iv Insertion CPOE 07/20/25 Transmitted 21:51 Cardiac Monitoring CPOE 07/20/25 Transmitted 21:51 Pulse Oximetry With CPOE 07/20/25 Transmitted Vs And Prn 21:51 Cbc With Differential LAB 07/20/25 Complete 21:51 Activity: Br W/Brp CPOE 07/20/25 Transmitted With Assist 21:51 Creatine Kinase, Total LAB 07/20/25 Complete 21:51 Troponin I High LAB 07/20/25 Complete Sensitivity 21:51 Urinalysis Profile LAB 07/20/25 Complete 21:51 Basic Metabolic Panel LAB 07/20/25 Complete 21:51 Potassium Bicarb/Cit PHA 07/20/25 Complete Ac 25meq (K-Lyte Ta 23:30 Prednisone 20mg Tab PHA 07/21/25 Complete (Deltasone/Orasone 2 00:30 Albuterol 0.083% PHA 07/21/25 Complete 2.5mg/3ml (Proventil 00:30 Hydralazine 20mg Inj PHA 07/21/25 Complete (Apresoline 20mg In 01:30 Current Medications Medications (Trade) Dose Ordered Sig/Adi Route PRN Reason Start Time Stop Time Status Last Admin Dose Admin Albuterol Sulfate (Proventil 0.083% 2.5mg/3ml) 2.5MG ONCE ONCE IH 07/21/25 00:30 07/21/25 00:31 DC 07/21/25 00:44 Hydralazine HCl (APRESOLine 20MG INJ) 10 mg ONCE ONCE IV 07/21/25 01:30 07/21/25 01:31 DC 07/21/25 01:41 Potassium Bicarbonate (K-Lyte Tablet Eff 25 Meq Tablet.eff) 50 meq ONCE ONCE PO 07/20/25 23:30 07/20/25 23:57 DC 07/21/25 00:00 Prednisone (deltaSONE/ oraSONE 20MG TAB) 40 mg ONCE ONCE PO 07/21/25 00:30 07/21/25 00:31 DC 07/21/25 01:04 Vital Signs Date Time Temp Pulse Resp B/P (MAP) Pulse Ox O2 Delivery O2 Flow Rate FiO2 07/21/25 01:41 179/76 07/21/25 01:37 75 16 179/77 97 Room Air* 0 07/21/25 01:10 74 20 07/21/25 00:30 70 15 173/80 97 Room Air* 0 07/21/25 00:10 75 20 N/A Room Air 21 07/20/25 23:32 75 16 179/75 97 Room Air* 0 07/20/25 22:04 98.8 80 17 188/75 95 Room Air* 0 21 07/20/25 21:43 98.8 79 20 181/80 96 Room Air HEART Score Response (Comments) Value History: Low suspicion (0) 0 EKG: Normal 0 Age: > 65yrs (+2) 2 Risk Factors: 1-2 risk factors (+1) 1 Initial Troponin: Normal limit (0) 0 HEART Score Risk: Low Risk for MACE (1-3) Total 3 Medical Decision Making MDM Differential diagnosis: Pleuritic chest pain, upper respiratory tract in fection, viral syndrome, acute bronchitis, sinusitis This is a 79-year-old female who presented to the emergency room with her spouse with complaints of chest tightness that started today. She also reported that she has had cold-like symptoms with severe congestion wheezing for the past many days. History of any fever chills or rigors. No discolored sputum. No hemoptysis. Patient denied any PND orthopnea. She recently saw her PCP who gave her cefdinir and benzonatate. The stated that she is not better and hence they came into the ER for further evaluation She also reported blood pressure was slightly high when she she checked at home. She tells me she has a known history of wheezing and reactive airway disease and has trilogy and albuterol at home which she has not not been using on a regular basis Temperature 98.8 pulse 79 respirations 20 blood pressure 181/80 with a pulse oximetry of 96% on room air. She was audibly wheezing during my evaluation Patient has chronic medical problems include diabetes, CAD, CABG 11:25 p.m. labs reviewed CBC shows a white count of 3.3 hemoglobin 10.9 platelets 116. BNP 7 shows a potassium of 2.9 troponins 29. Calcium is 9.4. Urinalysis is unremarkable. Chest x-ray no evidence of any obvious focal infiltrate. I updated the patient and her on possibly patient having a bronchitis/pneumonitis with a inflammation in the lungs and gave a trial of steroid and aggressive bronchodilator therapy. Patient's wheezing and breathing improved however her blood pressure remained elevated. Hydralazine was given. Rationale: Tests considered and ordered secondary to shared decision making in clude: Previous outside records reviewed: Old ER visits. Risk of complication and/or morbidity or mortality of patient management: None Medications-Per medication reconciliation Need for hospitalization: Patient does not meet criteria for hospitalization. Need for emergency major/minor surgery: No There are no social concerns with this patient. Prescription drug management Prescriptions will include symptomatic care Patient's prior external medical records from other ER visits were reviewed by me as indicated. Prior testing and results from previous visits were reviewed. Prior tests were taken into account with medical decision making and resource utilization, independent historian/historians were used to obtain complete medical history. I independently interpreted the test that were performed, results were reviewed by me and considered findings on radiology if ordered. Medical management and examination interpretation discussions were had by me with other qualified healthcare professionals as indicated for the patient's care. Problem List Problem List: (1) Acute bronchitis (2) Diabetes (3) Hypokalemia (4) Chest pain DX & DISP Disposition: Discharge Departure Impression: Primary Impression: Acute bronchitis Additional Impressions: Hypokalemia, Diabetes, Coronary artery disease Condition: Stable Scripts Albuterol Sulfate (Ventolin Hfa/Proventil Hfa/Proair Hfa) 90 Mcg Puff 1-2 PUFF IH Q4H PRN for SHORTNESS OF BREATH for 5 Days, #1 INH 0 Refills PHARMACY TO DISPENSE 1 INHALER FOR USE Prov: DWIGHT MCRAE MD 07/21/25 Azithromycin (Azithromycin) 250 Mg Tablet 1 TAB PO AD for 5 Days, #6 TAB 0 Refills 2 the first day followed by 1 for days 2-5 Prov: DWIGHT MCRAE MD 07/21/25 Prednisone (Prednisone) 20 Mg Tablet 1 TAB PO AD for 6 Days, #14 TAB 0 Refills TAKE 1 TAB BY MOUTH THREE TIMES PER DAY X3 DAYS, THEN TAKE 1 TAB BY MOUTH TWICE A DAY X2 DAYS, THEN TAKE 1 TAB BY MOUTH ONCE A DAY X1 DAY. Prov: DWGIHT MCRAE MD 07/21/25 Additional Instructions: Patient and the caregiver have been informed of all the diagnostic tests and the imaging conducted during the today's visit to the emergency room and has verbalized understanding of the results I have personally reviewed and interpreted all diagnostic exams performed here in the ER today as well as the vital signs documented by the nursing staff. The patient is now being discharged to home and should follow up with the primary care physician or the specialist as directed by the ER staff. Follow-up with primary care provider in 1 to 2 days. Take medications as directed here in the emergency room. Okay to continue home medications unless otherwise discussed during your visit in the emergency room today. Return to your nearest emergency room if symptoms worsen or if there is no improvement. Call 911 if you need immediate assistance. Take Tylenol or Motrin [id number] as needed and if no contraindications are present. Increase oral hydration. A wound culture or urine culture was ordered here in the emergency room department please follow-up with primary care provider and advise them to get repeat ports from our facility. If you had any Segun wrap/splints that were applied here, please do not remove them until you see your primary care or specialty. Patient indicated that she has trilogy and albuterol inhalers at home which he has been using them. I reiterated that she must take the inhalers over the next few days diligently. I also educated patient and on side effects of prednisone including hyperglycemia while she is on it Referrals: JEANIE CAMPBELL MD (PCP) DWIGHT MCRAE MD Jul 20, 2025 23:34
--- NOTE | 2025-07-20 23:38 | NUR ---
ED MD PADILLA MADE AWARE OF BLOOD PRESSURE.
--- NOTE | 2025-07-20 23:49 | HMCIMG ---
EXAM: CR Chest, 1 View. CLINICAL HISTORY: Chest pain. COMPARISON: CR dated 07/02/25. FINDINGS: LUNGS: The lungs show no infiltrate or other acute finding. PLEURAL SPACES: No evidence of pleural effusion or pneumothorax. MEDIASTINUM: Cardiac size and mediastinal contours are within normal limits. Median sternotomy sutures. Surgical clips in the region of the mediastinum. BONES: No aggressive appearing osseous lesion. IMPRESSION: No acute cardiopulmonary pathology is evident. No significant interval change. /[place]
[2025-07-21 00:10] VITALS: PULSE 75; RESP 20; O2SAT 95
[2025-07-21] MEDS: ALBUTEROL 0.083% 2.5 MG/3 ML INH IH ONE (00:44)
[2025-07-21 01:10] VITALS: PULSE 74; RESP 20
[2025-07-21 02:15] VITALS: BP 158/61; PULSE 70; RESP 15; TEMP 98.7; O2SAT 97
--- NOTE | 2025-07-21 07:26 | EKG ---
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
== END 2025-07-21 02:27 | disposition home or self-care (01) ==
LOC: EDH 21:40
DX: J20.9 Acute bronchitis, unspecified (principal); E11.9 Type 2 diabetes mellitus without complications; E78.00 Pure hypercholesterolemia, unspecified; E87.6 Hypokalemia; I10 Essential (primary) hypertension; I25.10 Atherosclerotic heart disease of native coronary artery without angina pectoris; Z79.4 Long term (current) use of insulin; Z79.82 Long term (current) use of aspirin; Z79.899 Other long term (current) drug therapy; Z95.5 Presence of coronary angioplasty implant and graft
CPT/HCPCS: 99285; 71045; 82550; 84484; 80048; 85025; 81001; 36415; 93005; 96374; 94640; J0360

== ENCOUNTER 2025-07-28 12:30 | Emergency (ER) | payer OTHER, MEDICARE ==
[~2025-07-28] VITALS: Ht 162.6 cm; Wt 64.4 kg
[~2025-07-28 12:30] MED LIST changes: +ALBUHFA IH; +AZIT250T9 PO; +PRED20TA3 PO
--- NOTE | 2025-07-28 12:38 | EKG ---
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: [id number] : 1945 Requested By: ONELIA THAYER Order Number: [id number] Reading MD: Nick Bay Measurements Intervals [place] Rate: 82 P: 12 FL: 151 QRS: 146 QRSD: 119 T: 18 QT: 438 QTc: 513 Interpretive Statements Sinus rhythm Ventricular premature complex Probable left atrial enlargement IRBBB and LPFB Prolonged QT interval Compared to ECG 07/20/2025 21:45:31 Ventricular premature complex(es) now present Incomplete right bundle-branch block now present Prolonged QT interval now present Right bundle-branch block no longer present Electronically Signed On 07-28-2025 23:51:52 CLIENT INTEGRATION MANAGER by Nick Bay Please click the below link to view image of tracing.
[2025-07-28 13:00] LABS: IMMATURE GRANULOCYTE ABSOLUTE 0.05 K/uL (0-1); NUCLEATED RED BLOOD CELLS 0.0 % (0.0-0.19); PLATELET COUNT (AUTO) 183 K/uL (130-400); RED BLOOD CELL COUNT(AUTO) 4.31 MIL/uL (4.00-5.50); RED CELL DISTRIBUTION WIDTH 13.0 % (11.0-15.5); WHITE BLOOD COUNT (AUTO) 9.9 K/uL (4.8-10.8)
[2025-07-28 13:09] LABS: CREATININE 0.8 mg/dL (0.5-1.0); GLOMERULAR FILTR. RATE CALC 75.0 mL/min (>90); GLUCOSE,RANDOM 145.0 mg/dL (70-105); SODIUM SERUM 141.0 mmol/L (136-145); UREA NITROGEN, BLOOD 8.0 mg/dL (7-18)
--- NOTE | 2025-07-28 13:28 | HMCIMG ---
STUDY: X-RAY OF THE CHEST, 1 VIEW HISTORY: Chest pain. TECHNIQUE: A single frontal view of the chest is submitted for interpretation. COMPARISON: Chest radiograph from 07/20/2025. FINDINGS: Pulmonary paulino: Lungs are clear without infiltrate, pulmonary edema, or discrete pulmonary nodules. No focal consolidation is identified. Cardiac silhouette: Cardiac size is within normal limits. Mediastinum and gurpreet: Mediastinal contours are normal. Median sternotomy sutures and coronary artery bypass graft clips are present in the mediastinum. Aortic arch calcification is noted, compatible with atherosclerotic change. No mediastinal widening is seen. Osseous structures: No aggressive-appearing osseous lesion is identified. Visualized bony thorax is stable in appearance. Miscellaneous: No pleural effusion or pneumothorax is seen. Diaphragms and costophrenic angles are sharp. IMPRESSION: * No acute cardiopulmonary abnormality identified to explain chest pain on this single-view chest radiograph. Clinical evaluation and non-radiographic cardiac workup (such as ECG and cardiac biomarkers) should guide further management as indicated. * Poststernotomy changes with coronary artery bypass graft clips and aortic arch calcification, consistent with chronic atherosclerotic cardiovascular disease. * Compared with the chest radiograph from 07/20/2025, the appearance of the lungs, heart, and mediastinum is stable without new radiographic abnormality. /[place]
[2025-07-28 13:45] LABS: APPEARANCE,URINE CLEAR (CLEAR); GLUCOSE, URINE (UA) NEGATIVE (NEGATIVE); LEUKOCYTE ESTERASE ,URINE NEGATIVE Leu/uL (NEGATIVE); NITRATE,URINE NEGATIVE (NEGATIVE); OCCULT BLOOD,URINE NEGATIVE (NEGATIVE)
[2025-07-28 13:48] LABS: ADD UA MICROSCOPIC NO
--- NOTE | 2025-07-28 14:12 | ERN ---
General Chief Complaint: Chest Pain Stated Complaint: CHEST PAIN Time Seen by MD: 12:31 Source: patient, family History of Present Illness Initial Comments Patient is a 79-year-old female coming in complaining of chest pain. Per patient the chest pain has been ongoing for a couple of days progressively getting worse. Has been is concerned because patient had open heart surgery. No fever no chills. Allergies: Coded Allergies: No Known Drug Allergies (Unverified Allergy, Unknown, 12/18/17) Home Meds Active Scripts Albuterol Sulfate (Ventolin Hfa/Proventil Hfa/Proair Hfa) 90 Mcg Puff, 1-2 PUFF IH Q4H PRN for SHORTNESS OF BREATH for 5 Days, #1 INH 0 Refills PHARMACY TO DISPENSE 1 INHALER FOR USE Prov:DWIGHT PADILLA MD 07/21/25 Azithromycin (Azithromycin) 250 Mg Tablet, 1 TAB PO AD for 5 Days, #6 TAB 0 Refi lls 2 the first day followed by 1 for days 2-5 Prov:DWIGHT PADILLA MD 07/21/25 Prednisone (Prednisone) 20 Mg Tablet, 1 TAB PO AD for 6 Days, #14 TAB 0 Refills TAKE 1 TAB BY MOUTH THREE TIMES PER DAY X3 DAYS, THEN TAKE 1 TAB BY MOUTH TWICE A DAY X2 DAYS, THEN TAKE 1 TAB BY MOUTH ONCE A DAY X1 DAY. Prov:DWIGHT PADILLA MD 07/21/25 Hydralazine HCl (Hydralazine HCl) 25 Mg Tablet, 0.5 TAB PO TID PRN for IF SBP GREATER THAN 160, #45 TAB 0 Refills Prov:JEANIE CAMPBELL MD 05/15/25 Azelastine HCl (Azelastine HCl) 137 Mcg (0.1 %) [place].pump, 2 SPRAY NS BID for 30 Days, #30 ML 0 Refills Prov:JEANIE CAMPBELL MD 05/14/25 Sodium Chloride (NaCl) 1,000 Mg Tab, 1 TAB PO DAILY PRN for SBP<100 for 90 Days, #90 TAB 0 Refills Prov:JEANIE CAMPBELL MD 05/14/25 Insulin Degludec (Tresiba) 100 Unit/Ml Vial, 13 UNIT SQ DAILY, #60 VIAL 1 Refill Prov:JEANIE CAMPBELL MD 05/14/25 Acetaminophen with Codeine (Acetaminophen-Cod #3 Tablet) 300 Mg-30 Mg Tablet, 0.5 TAB PO DAILY PRN for pain, #28 TAB 0 Refills Prov:JEANIE CAMPBELL MD 05/14/25 Fluticasone/Umeclidin/Vilanter (Trelegy Ellipta 100-62.5-25) 100-62.5 Blst.w.dev, 1 PUFF IH DAILY for 30 Days, #1 EACH 0 Refills Prov:JEANIE CAMPBELL MD 02/14/25 Dulaglutide (Trulicity) 0.75 Mg/0.5 Ml Pen.injctr, 0.5 ML SQ QWEEK for 28 Days, #2 ML 0 Refills Prov:JEANIE CAMPBELL MD 02/14/25 Rosuvastatin Calcium (Rosuvastatin Calcium) 20 Mg Tablet, 20 MG PO DAILY, #90 TAB Prov:JEANIE CAMPBELL MD 02/14/25 Potassium Chloride (Potassium Chloride) 20 Meq Tab.er.prt, 1 TAB PO BID for 30 Days, #60 TAB 0 Refills Prov:JEANIE CAMPBELL MD 02/14/25 Nitroglycerin (Nitrostat) 0.4 Mg Tab.subl, 1 TAB SL AD for chest pain, #25 TAB 0 Refills 1st sign of attack; may repeat every 5 mins; if pain persists after 3 in 15 min, medical attention is recommended Prov:JEANIE CAMPBELL MD 02/14/25 Magnesium Oxide (Magnesium) 250 Mg Tablet, 1 TAB PO DAILY for 30 Days, #30 TAB 0 Refills Prov:JEANIE CAMPBELL MD 02/14/25 Fludrocortisone Acetate (Fludrocortisone Acetate) 0.1 Mg Tablet, 2 TAB PO DAILY for 30 Days, #30 TAB 0 Refills Prov:JEANIE CAMPBELL MD 02/14/25 Reported Medications Albuterol Sulfate (Ventolin Hfa) 90 Mcg Hfa.aer.ad, 18 GM IH Q4HPRN PRN for SHORTNESS OF BREATH, INHALER 09/28/23 Aspirin (Aspirin EC) 81 Mg Tablet.dr, 81 MG PO DAILY, TAB 09/28/23 Pantoprazole Sodium (Pantoprazole Sodium) 40 Mg Tablet.dr, 40 MG PO HS, TAB 1/3/23 Past Medical History Past Medical History: CAD, Diabetes-Type II, High Cholesterol, Hypertension Medical History Other: vertigo Past Surgical History: Other Surgical History Other: OPEN HEART SX (1999,2003), CARDIAC STENTS Family History Family History: Negative Social History Social History: Negative, Lives with family Female( History) History: Not Applicable ROS Dictation CONSTITUTIONAL: No chills, no fever, no weakness, no diaphoresis, no malaise. HEAD/FACE: No signs of trauma. EENT: No eye pain, no blurred vision, no tearing, no double vision, no ear pain, no ear discharge, no nose pain, no nasal congestion, no throat pain, no throat swelling, no mouth pain. RESPIRATORY: No cough, no orthopnea, no SOB, no stridor, no wheezing. CARDIOVASCULAR: chest pain, no edema, no palpitations, no syncope. GASTROINTESTINAL/ABDOMINAL: No abdominal pain, no constipation, no diarrhea, no nausea, no vomiting. GENITOURINARY: No abnormal discharge, no dysuria, no frequent urination, no hematuria. No complaints of pain in the genitals. MUSCULOSKELETAL: No back pain, no gout, no joint pain, no joint swelling, no muscle pain, no muscle stiffness, no neck pain. INTEGUMENTARY: No change in color, no change in hair/nails, no dryness, no lesion, no lumps, no rash. NEUROLOGICAL/PSYCH: No anxiety, not depressed, no emotional problem, no headache, no numbness, no pre-existing deficit, no history of seizures, no tremors, no weakness. HEMATOLOGIC/LYMPHATIC: Not anemic, no history of blood clots, no apparent bleed ing, no bruising, glands not swollen. All Systems Negative, Except as Noted. Physical Exam Physical Exam Dictation VITAL SIGNS: Reviewed. GENERAL APPEARANCE: Alert, oriented x3, no acute distress, obese. HEAD AND FACE: Non-traumatic. EYES: PERRL, pink conjunctivas, eyelid no trauma, anterior chamber clear. EARS: Pinnas intact and no signs of trauma or erythema. Ear canals clear and no discharge. TMs no erythema. NOSE: No discharge, no bleeding. OROPHARYNX: Mouth normal, teeth no caries, tongue pink. Pharynx clear, no erythema. Tonsils no exudates, no abscesses noted. Mucous membrane moist. NECK: Supple, non-tender, no thyromegaly, no masses, no JVD, no bruits. BREAST: Deferred. CHEST: No tenderness, no crepitus, no paradoxical movement, no retractions. LUNGS: Clear, well-ventilated, symmetric, no rales, no wheezing, no rhonchi, no stridor, good breath sounds bilaterally. HEART: Regular rate, regular rhythm, no murmur, no gallops. VASCULAR: No peripheral edema. ABDOMEN: Soft, positive bowel sounds, nondistended, no guarding, nontender, no rebound, no masses no hepatomegaly, no splenomegaly, no Manrique's sign, no hernias. RECTAL: Deferred. GENITAL: Deferred. NEUROLOGICAL: Normal speech, gross motor function intact, gross sensory function intact. MUSCULOSKELETAL: Neck nontender, full range of motion, back nontender, full range of motion. EXTREMITIES: Nontender, full range of motion. SKIN: Color pink, dry, no turgor, no rash, no lacerations, no abrasions, no contusions. LYMPHATICS: Deferred. Results Laboratory and Microbiology Lab and Micro Result Laboratory Tests Test 07/28/25 12:53 07/28/25 13:30 07/28/25 14:05 White Blood Count 9.9 K/uL (4.8-10.8) Red Blood Count 4.31 MIL/uL (4.00-5.50) Hemoglobin 13.1 g/dL (12.0-16.0) Hematocrit 38.2 % (36-48) Mean Corpuscular Volume 88.6 fL (79-99) Mean Corpuscular Hemoglobin 30.4 pg (27.0-33.0) Mean Corpuscular Hemoglobin Concent 34.3 g/dL (32.0-36.0) Red Cell Distribution Width 13.0 % (11.0-15.5) Platelet Count 183 K/uL (130-400) Mean Platelet Volume 11.5 fL (7.5-10.5) H Immature Granulocyte % (Auto) 0.5 % (0-1) Neutrophils (%) (Auto) 84.2 % (40.0-77.0) H Lymphocytes (%) (Auto) 10.8 % (21.0-51.0) L Monocytes (%) (Auto) 4.3 % (3.0-13.0) Eosinophils (%) (Auto) 0.1 % (0.0-8.0) Basophils (%) (Auto) 0.1 % (0.0-5.0) Neutrophils # (Auto) 8.4 K/uL (1.8-7.7) H Lymphocytes # (Auto) 1.1 K/uL (1.0-4.8) Monocytes # (Auto) 0.4 K/uL (0.1-1.0) Eosinophils # (Auto) 0.01 K/uL (0.00-0.70) Basophils # (Auto) 0.01 K/uL (0.00-0.20) Absolute Immature Granulocyte (auto 0.05 K/uL (0-1) Nucleated Red Blood Cells 0.0 % (0.0-0.19) Sodium Level 141 mmol/L (136-145) Potassium Level 2.9 mmol/L (3.5-5.1) *L Chloride Level 106 mmol/L (101-111) Carbon Dioxide Level 27 mmol/L (21-32) Blood Urea Nitrogen 8 mg/dL (7-18) Creatinine 0.8 mg/dL (0.5-1.0) Glomerular Filtration Rate Calc 75 mL/min (>90) Random Glucose 145 mg/dL (70-105) H Total Calcium 7.7 mg/dL (8.5-10.1) L Troponin I High Sensitivity 21 ng/L (4-50) 20 ng/L (4-50) Urine Color LIGHT-YELLOW (YELLOW) Urine Appearance CLEAR (CLEAR) Urine pH 7.5 (5.0-8.0) Urine Specific [place] 1.004 (1.001-1.031) Urine Protein NEGATIVE mg/dL (NEGATIVE) Urine Glucose (UA) NEGATIVE mg/dL (NEGATIVE) Urine Ketones NEGATIVE mg/dL (NEGATIVE) Urine Occult Blood NEGATIVE (NEGATIVE) Urine Nitrate NEGATIVE (NEGATIVE) Urine Bilirubin NEGATIVE mg/dL (NEGATIVE) Urine Urobilinogen 0.2 mg/dL (0.2-1.0) Urine Leukocyte Esterase NEGATIVE [place]/uL Magnesium Level 1.70 mg/dL (1.80-2.40) L Labs Reviewed?: Yes EKG/XRAY/US/CT/MRI EKG Comment 07/28/2025 time 12:26 p.m. Ventricular rate 82 Sinus rhythm [place] [address] wave elevation or depression MDM MDM: Differential diagnosis: Gastroenteritis, hypokalemia, hypomagnesemia, Rationale: Tests considered and ordered secondary to shared decision making include: labs, ECG and radiology Previous outside records reviewed: Old ER visits. Risk of complication and/or morbidity or mortality of patient management: None Medications-Per medication reconciliation Need for hospitalization: Patient does meet criteria for hospitalization. Need for emergency major/minor surgery: No Patient is a 79-year-old female coming in complaining of weakness since it is discomfort. On labs potassium in his low as well as magnesium which was was replaced. Per PCP patient is to be discharged and follow up in clinic in the a.m.. Started ER visit patient has been stable patient is content with the treatment and plan of care. ED Course Orders Procedure Category Date Status Time Chest 1vw RAD 07/28/25 Resulted 12:34 12 Lead Ekg Tracing- EKG 07/28/25 Complete Technical 12:34 Oxygen By Nc/Pulse Ox CPOE 07/28/25 Transmitted 12:34 Cbc With Differential LAB 07/28/25 Complete 12:34 Troponin I High LAB 07/28/25 Complete Sensitivity 12:34 Urinalysis Profile LAB 07/28/25 Complete 12:34 Basic Metabolic Panel LAB 07/28/25 Complete 12:34 Troponin I High LAB 07/28/25 Complete Sensitivity 13:52 Potassium Chloride PHA 07/28/25 In Process 10meq/100ml ([place] 14:30 Potassium Bicarb/Cit PHA 07/28/25 Complete Ac 25meq (K-Lyte Ta 14:30 Magnesium LAB 07/28/25 Complete 14:09 Magnesium 2gm Premix PHA 07/28/25 In Process 50ml (Magnesium 2gm 15:30 Current Medications Medications (Trade) Dose Ordered Sig/Adi Route PRN Reason Start Time Stop Time Status Last Admin Dose Admin Magnesium Sulfate 50 ml @ 0 mls/hr PROTOCOL IV 07/28/25 15:30 08/27/25 15:29 Potassium Bicarbonate (K-Lyte Tablet Eff 25 Meq Tablet.eff) 50 meq ONCE ONCE PO 07/28/25 14:30 07/28/25 14:31 DC 07/28/25 14:35 Potassium Chloride 100 ml @ 100 mls/hr ONCE ONCE IV 07/28/25 14:30 07/28/25 15:29 07/28/25 14:35 Vital Signs Date Time Temp Pulse Resp B/P (MAP) Pulse Ox O2 Delivery O2 Flow Rate FiO2 07/28/25 12:31 97.9 80 20 209/88 99 Room Air DX & DISP Disposition: Discharge Departure Impression: Primary Impression: Hypokalemia Additional Impressions: Viral gastroenteritis, Hypomagnesemia Condition: Stable Additional Instructions: FOLLOW-UP WITH PRIMARY CARE PROVIDER IN 1 TO 2 DAYS. TAKE MEDICATIONS DIRECTED HERE IN THE EMERGENCY ROOM. OKAY TO CONTINUE HOME MEDICATIONS UNLESS OTHERWISE DISCUSSED DURING YOUR VISIT IN THE EMERGENCY ROOM TODAY. RETURN TO YOUR NEAREST EMERGENCY ROOM IF SYMPTOMS WORSEN OR IF THERE IS NO IMPROVEMENT. CALL 911 IF YOU NEED IMMEDIATE ASSISTANCE. TAKE TYLENOL [id number] NEEDED AND IF NO CONTRAINDICATIONS ARE PRESENT. INCREASE ORAL HYDRATION. A WOUND CULTURE OR URINE CULTURE WAS ORDERED HERE IN THE EMERGENCY ROOM DEPARTMENT PLEASE FOLLOW-UP WITH PRIMARY CARE PROVIDER AND ADVISE THEM TO GET REPORTS FROM OUR FACILITY. IF YOU HAD ANY STEVIE WRAP/SPLINTS THAT WERE APPLIED HERE, PLEASE DO NOT REMOVE THEM UNTIL YOU SEE YOUR PRIMARY CARE OR SPECIALTY. Referrals: Referrals: JEANIE CAMPBELL MD (PCP) Time of Disposition: 15:12 FOLLOW-UP WITH PRIMARY CARE PROVIDER IN 1 TO 2 DAYS. TAKE MEDICATIONS DIRECTED HERE IN THE EMERGENCY ROOM. OKAY TO CONTINUE HOME MEDICATIONS UNLESS OTHERWISE DISCUSSED DURING YOUR VISIT IN THE EMERGENCY ROOM TODAY. RETURN TO YOUR NEAREST EMERGENCY ROOM IF SYMPTOMS WORSEN OR IF THERE IS NO IMPROVEMENT. CALL 911 IF YOU NEED IMMEDIATE ASSISTANCE. TAKE TYLENOL [id number] NEEDED AND IF NO CONTRAINDICATIONS ARE PRESENT. INCREASE ORAL HYDRATION. A WOUND CULTURE OR URINE CULTURE WAS ORDERED HERE IN THE EMERGENCY ROOM DEPARTMENT PLEASE FOLLOW-UP WITH PRIMARY CARE PROVIDER AND ADVISE THEM TO GET REPORTS FROM OUR FACILITY. IF YOU HAD ANY STEVIE WRAP/SPLINTS THAT WERE APPLIED HERE, PLEASE DO NOT REMOVE THEM UNTIL YOU SEE YOUR PRIMARY CARE OR SPECIALTY. Referrals: ONELIA THAYER MD Jul 28, 2025 14:12
[2025-07-28] MEDS: MAGNESIUM 2GM PREMIX 50ML 50 ML IV SCH (16:27)
--- NOTE | 2025-07-28 16:27 | NUR ---
PT READY FOR DISCHARGE AFTER MAGNESIUM INFUSION
[2025-07-28 17:03] VITALS: BP 169/94; PULSE 80; RESP 16; TEMP 97.9; O2SAT 99
== END 2025-07-28 17:11 | disposition home or self-care (01) ==
LOC: EDH 12:30
DX: E87.6 Hypokalemia (principal); A08.4 Viral intestinal infection, unspecified; E83.42 Hypomagnesemia; E11.9 Type 2 diabetes mellitus without complications; E78.00 Pure hypercholesterolemia, unspecified; I10 Essential (primary) hypertension; I25.10 Atherosclerotic heart disease of native coronary artery without angina pectoris; Z79.4 Long term (current) use of insulin; Z79.82 Long term (current) use of aspirin; Z79.899 Other long term (current) drug therapy; Z95.1 Presence of aortocoronary bypass graft; Z95.5 Presence of coronary angioplasty implant and graft
CPT/HCPCS: 99285; 96365; 71045; 96367; 96366; 83735; 84484 ×2; 80048; 85025; 81003; 36415; 93005; J3475; J3480